=== PATIENT | female | born 1935 | race Caucasian/White ===

== ENCOUNTER → 2016-07-22 | Outpatient (CLI) | payer BC ==
[~2016-07-22] MED LIST: ATEN100T8 PO; CHOL20009 PO; FERR225T2 PO; LEVO50TA PO; LISI-725 PO; LPT/40 PO; POTA10CA28 PO; PXL20 PO
--- NOTE | 2016-07-22 14:21 | MAMMOGRAPHY REPORT ---
BILATERAL DIGITAL DIAGNOSTIC MAMMOGRAM TOMOSYNTHESIS WITH CAD AND TARGETED RIGHT ULTRASOUND: 07/22/19 CLINICAL HISTORY: 81-year-old female presents for annual bilateral mammography as well as follow-up of probably benign left breast grouped microcalcifications. She has a history of prior benign left breast ultrasound guided core biopsy. TECHNIQUE: Bilateral breast tomosynthesis and standard 2-D mammography was performed in addition to spot magnification left CC and ML views. Current study was also evaluated with a Computer Aided Det ection (CAD) system. COMPARISON: Comparison is made to exams dated: 01/02/2016 mammogram, 07/03/2015 mammogram, 5 mammogram, and 05/18/2015 mammogram - [facility]. BREAST COMPOSITION: The tissue of both breasts is heterogeneously dense, which may obscure small ma sses. FINDINGS: There is a stable ribbon shaped metallic biopsy marker in the 6:00 anterior left breast. There is a faint punctate grouping of microcalcifications in the lateral middle one third of the le ft breast, best seen on the spot magnification CC view, that appears similar on prior mammograms stacia ing back to at least 2010, therefore considered benign. There are other scattered and grouped benig n-appearing round and punctate microcalcifications at the left breast. No new suspicious mass, arch itectural distortion or new cluster of microcalcifications is seen in the left breast. Within the right posterior breast, along the posterior nipple line on the CC view, there is a newly visualized oval circumscribed 8.2 mm mass, for which additional sonographic evaluation was performed . There is a stable small grouping of punctate microcalcifications in the central right breast. A few benign coarse calcifications in the right breast. Targeted ultrasound was performed in the right breast 6:00 axis. In the 6:00 breast, 2 cm from the nipple, there is an oval parallel circumscribed anechoic benign simple cyst measuring 7.4 x 4.2 x 6. 7 mm. This correlates well with the newly visualized mammographic mass and is benign. No further w orkup is needed at this time. IMPRESSION: ACR BI-RADS CATEGORY 2: BENIGN, TARGETED ULTRASOUND ACR BI-RADS CATEGORY 2: BENIGN There is no mammographic or targeted sonographic evidence of malignancy. Small grouped punctate joaquina rocalcifications in the lateral left breast have been stable dating back to at least 2010, therefore considered benign. A newly visualized circumscribed 8mm mass in the posterior right breast correla quinton with a benign simple cyst on ultrasound. Therefore, recommend return to annual screening mammog yuridia schedule in one year. These results and recommendations were discussed with the patient at th e time of the exam. Approximately 10% of breast cancers are not detected with mammography. A negative mammographic repor t should not delay biopsy if a clinically suggestive mass is present. Ciara Augustine M.D. ay/:07/22/2016 12:21:46 Database Coordinator: Chelsey PINO(Herbie)(Stefany), [facility] letter sent: Normal 1/2 BI-RADS Code: ACR BI-RADS Category 2: Benign Ultrasound BI-RADS: ACR BI-RADS Category 2: Benign
== END | disposition home or self-care (01) ==
LOC: C.MAMM 09:59
PROVIDERS: ATTEND Family Medicine
DX: R92.0 Mammographic microcalcification found on diagnostic imaging of breast (principal); N60.01 Solitary cyst of right breast

== ENCOUNTER → 2017-07-24 | Outpatient (CLI) | payer BC ==
--- NOTE | 2017-07-24 13:58 | MAMMOGRAPHY REPORT ---
BILATERAL DIGITAL SCREENING MAMMOGRAM TOMOSYNTHESIS WITH CAD: 07/24/2017 CLINICAL HISTORY: Routine screening. Patient has no complaints. TECHNIQUE: Breast tomosynthesis in addition to standard 2D mammography was performed. Current study was also evaluated with a Computer Aided Detection (CAD) system. COMPARISON: Comparison is made to exams dated: 07/22/2016 ultrasound, 07/22/2016 mammogram, 05/28/2015 mammogram, 05/18/2015 mammogram, 05/17/2014 mammogram, and 05/12/2013 mammogram - [facility]. BREAST COMPOSITION: The tissue of both breasts is heterogeneously dense, which may obscure small mas ses. FINDINGS: No suspicious masses, calcifications, or areas of architectural distortion are noted in ei ther breast. There has been no significant interval change compared to prior exams. Bilateral benign -appearing calcifications are not significantly changed. A biopsy marker clip is again noted within the left inferior breast. Circumscribed 9 mm mass within the right 6:00 breast was shown to represen t a benign cyst on the prior 2016 ultrasound exam. IMPRESSION: ACR BI-RADS CATEGORY 2: BENIGN There is no mammographic evidence of malignancy. A 1 year screening mammogram is recommended. The pa tient will receive written notification of the results. Approximately 10% of breast cancers are not detected with mammography. A negative mammographic report should not delay biopsy if a clinically suggestive mass is present. Diya Sotomayor M.D. /:07/24/2017 12:34:30 [employer] Records Clerk: Chelsey LIN)(Stefany), [facility] letter sent: Normal 1/2 BI-RADS Code: ACR BI-RADS Category 2: Benign
== END | disposition home or self-care (01) ==
LOC: C.MAMM 09:59
PROVIDERS: ATTEND Family Medicine
DX: Z12.31 Encounter for screening mammogram for malignant neoplasm of breast (principal)

== ENCOUNTER → 2017-08-07 | Outpatient (CLI) | payer BC ==
--- NOTE | 2017-08-07 14:54 | DIAGNOSTIC IMAGING REPORT ---
ULTRASOUND-GUIDED FINE-NEEDLE ASPIRATION BIOPSY OF A RIGHT LOBE THYROID NODULE CLINICAL HISTORY: THYROID NODULE COMPARISON STUDY: 07/29/2017 FINDINGS: A timeout was performed. The risks the procedure were explained the patient informed consent was obtained. Patient prepped in sterile fashion. The skin was anesthetized 1% lidocaine. Under sonographic guidance, 5 passes into the patient's dominant right lobe nodule were performed utilizing a 25-gauge needle. There were no immediate complications. The patient however the procedure well. Final pathology is pending at this time. IMPRESSION: The patient's dominant right lobe thyroid lesion was sampled x5 under ultrasound guidance with 25-gauge needle. Final pathology is pending at this time. Electronically signed by: Juan Domínguez M.D. 08/07/2017 2:52 PM Dictated Date/Time: 08/07/2017 10:50 AM
== END | disposition home or self-care (01) ==
LOC: C.ULTR 09:35
PROVIDERS: ATTEND Family Medicine
DX: E04.1 Nontoxic single thyroid nodule (principal)

== ENCOUNTER 2020-09-06 17:26 | Inpatient (IN) ==
--- NOTE | 2020-09-06 18:14 | Emergency Department Note ---
Impression & Plan Acute CVA (cerebrovascular accident), Atrial fibrillation with rapid ventricular response, Elevated troponin ED Provider Note INFORMANT: Patient ED PROVIDER(S): Erick Shahid MD CHIEF COMPLAINT: Left arm weakness PLAN: Disposition: Admitted Condition: Good Outpatient prescription management: none Referral: None MEDICAL DECISION MAKING: Patient presented with acute left arm weakness that started yesterday. Specifically it was isolated to her hand. She was in a rapid A. fib with a mild tachycardic rate. Blood work was obtained. The patient was found to have a mild leukocytosis. LFTs were minimally elevated. The patient did have an elevated troponin and normal renal function. She was sent for CT imaging including angiography. There was no acute findings noted. Radiology did note that there was a long segment of narrowing in the vertebral but again no vessel cut off or obvious acute stroke. Her findings are concerning for stroke especially in light of her A. fib history. She was treated with IV metoprolol to control her rate. Consultation was made with Dr. Dashawn Ambrose of the [facility] service. Patient was evaluated in the ER for further management. Urinalysis was unremarkable. Triage Nursing notes reviewed and agree them. Additional history obtained from family Vital Signs: reviewed and remarkable for tachycardia Differential diagnosis: CVA, TIA, infection, dehydration, metabolic abnormality, hypo/hyperglycemia, electrolyte disturbance, anemia, hypoxia, cardiac sources, intracerebral event, toxicologic, neurologic, as well as other pathologies. Diagnostics interpreted by me: ECG: Twelve-lead ECG revealed atrial fibrillation with rapid ventricular response at 115 bpm. There is nonspecific ST abnormality. No significant ST elevation. No PVCs. Normal QRS and axis. Cardiac Monitoring: Cardiac monitoring ordered by me: The patient was placed on continuous cardiac monitoring and observed. It revealed atrial fibrillation with rapid ventricular response at 130 bpm. Imaging studies: CT imaging of the head and neck with angiography performed. No acute CVA noted. I refer you to the EMR for further details. Consultation(s): [facility] service HPI: The patient is a 85 year old female who presents to the Emergency Room with complaints of left arm weakness. This started yesterday afternoon and is persisting. The patient also notes the following associated symptoms, palpitations. The patient went to her primary clinic and they were concerned about possible CVA and rapid A. fib. The patient has history of A. fib. She is anticoagulated. The patient has found no relieving factors. Current pain is rated as 0/10. Patient does note she feels generally weak. Pt denies LOC, headache, fevers, chills, diaphoresis, visual changes, neck pain, chest pain, breathing difficulties, nausea, vomiting, abdominal pain, back pain, melena, hematochezia, urinary symptoms, numbness, lymphadenopathy, rash, or other complaints. ROS: See above HPI for pertinent positives & negatives. A total of 10 systems reviewed and were otherwise negative. PAST MEDICAL HISTORY:See Below , ABaylee cash PAST SURGICAL HISTORY:See Below, FAMILY HISTORY:See Below SOCIAL HISTORY:See Below, non-smoker HOME MEDICATIONS:See Below ALLERGIES:See Below VITALS:See Below PHYSICAL EXAMINATION: GENERAL: Awake, alert, well-appearing, in no distress HENT: Normocephalic, atraumatic. Oropharynx unremarkable. EYES: Normal conjunctiva. Sclera non-icteric. NECK: Inspection normal. Non-tender. Supple. No nuchal rigidity. FROM. No masses. RESPIRATORY: Clear to auscultation. No wheezes. No rales. Normal respiratory effort. CARDIAC: Normal rate. Normal rhythm. No murmurs. No rubs. The left hand is cool to the touch but there is a good distal pulse. Pulses equal. No JVD. GI: Soft, non-distended. No tenderness to palpation. No rebound or guarding. No masses. RECTAL: Deferred. MUSCULOSKELETAL: Atraumatic. Chest examination reveals no tenderness. The back is symmetrical on inspection without obvious abnormality. There is no CVA tenderness to palpation. No joint edema. LOWER EXTREMITIES: Calves are equal size bilaterally and non-tender. No edema. No discoloration. NEURO: Normal sensorium. No sensory deficits noted. Left hand weakness present. No drift. Cranial nerves II to XII intact. Speech normal SKIN: No rash or jaundice noted. ED COURSE: Critical Care: I have personally spent greater than 35 minutes of critical care time in the direct management of this patient. This includes bedside care, interpretation of diagnostic studies, and testing, discussion with consultants, patient, and family members, and other required patient management activities. These minutes are in excess of all separately billable procedures. Erick Shahid MD Past Med/Surg History Social History Smoking Status: Never smoker Preferred Language: Danish Feels Safe at Home: Yes Allergies Allergies Allergy/AdvReac Type Severity Reaction Status Date / Time No Known Allergies Allergy Verified 09/06/20 19:09 Home Meds Home Medications Medication Instructions Recorded Confirmed atorvastatin 40 mg PO QPM 09/06/20 09/06/20 chlorthalidone 12.5 mg PO DAILY 09/06/20 09/06/20 cholecalciferol (vitamin D3) 50 mcg PO QAM 09/06/20 09/06/20 [Vitamin D3] iron,carbonyl-vitamin C [Vitron-C] 1 tab PO QAM 09/06/20 09/06/20 lisinopril 40 mg PO QPM 09/06/20 09/06/20 metoprolol succinate 150 mg PO QPM 09/06/20 09/06/20 multivitamin [One A Day Vitamin] 1 tab PO QAM 09/06/20 09/06/20 rivaroxaban [Xarelto] 20 mg PO QPM 09/06/20 09/06/20 Results & Data (ED) Vital Signs Vital Signs - 24 hr 09/06/20 17:34 09/06/20 18:00 09/06/20 18:13 Temperature 36.6 C Temperature Source Temporal Artery Scan Pulse Rate 127 H 115 H 119 H Pulse Rate [Left Apical] Pulse Rate from SpO2 Sensor Pulse Rhythm [Left Apical] Pulse Strength [Left Apical] Respiratory Rate 17 27 H 25 H Respiratory Effort / Characteristics Non-Labored Spontaneous Respiratory Depth Normal Respiratory Pattern Blood Pressure 141/81 H 150/95 H Blood Pressure [Right Arm] Blood Pressure Mean 101 113 Blood Pressure Mean [Right Arm] Blood Pressure Position Sitting Blood Pressure Position [Right Arm] Pulse Oximetry 98 Oxygen Delivery Method Room Air Sepsis Recent Fever Within 48 Hours No Sepsis New/Unexplained Change in Mental Status Yes Sepsis Action Taken by Nursing No Action Required 09/06/20 18:30 09/06/20 18:38 09/06/20 18:40 Temperature Temperature Source Pulse Rate 119 H 125 H Pulse Rate [Left Apical] 121 H Pulse Rate from SpO2 Sensor Pulse Rhythm [Left Apical] Regular Pulse Strength [Left Apical] Normal Respiratory Rate 26 H 27 H 18 Respiratory Effort / Characteristics Non-Labored Spontaneous Respiratory Depth Normal Respiratory Pattern Regular Blood Pressure 148/91 H Blood Pressure [Right Arm] 148/91 H Blood Pressure Mean 110 Blood Pressure Mean [Right Arm] 110 Blood Pressure Position Blood Pressure Position [Right Arm] Lying Pulse Oximetry 98 Oxygen Delivery Method Room Air Sepsis Recent Fever Within 48 Hours Sepsis New/Unexplained Change in Mental Status Sepsis Action Taken by Nursing 09/06/20 20:00 09/06/20 20:23 09/06/20 20:29 Temperature Temperature Source Pulse Rate 125 H 120 H 123 H Pulse Rate [Left Apical] Pulse Rate from SpO2 Sensor 121 H 116 H 129 H Pulse Rhythm [Left Apical] Pulse Strength [Left Apical] Respiratory Rate 17 16 20 Respiratory Effort / Characteristics Respiratory Depth Respiratory Pattern Blood Pressure 141/97 H 137/91 136/81 Blood Pressure [Right Arm] Blood Pressure Mean 111 106 99 Blood Pressure Mean [Right Arm] Blood Pressure Position Blood Pressure Position [Right Arm] Pulse Oximetry 97 99 97 Oxygen Delivery Method Room Air Room Air Room Air Sepsis Recent Fever Within 48 Hours Sepsis New/Unexplained Change in Mental Status Sepsis Action Taken by Nursing 09/06/20 20:30 Temperature Temperature Source Pulse Rate 112 H Pulse Rate [Left Apical] Pulse Rate from SpO2 Sensor 115 H Pulse Rhythm [Left Apical] Pulse Strength [Left Apical] Respiratory Rate 17 Respiratory Effort / Characteristics Respiratory Depth Respiratory Pattern Blood Pressure 143/85 H Blood Pressure [Right Arm] Blood Pressure Mean 104 Blood Pressure Mean [Right Arm] Blood Pressure Position Blood Pressure Position [Right Arm] Pulse Oximetry 98 Oxygen Delivery Method Room Air Sepsis Recent Fever Within 48 Hours Sepsis New/Unexplained Change in Mental Status Sepsis Action Taken by Nursing Laboratory Data Result diagrams: 09/06/20 18:10 09/06/20 18:10 Lab Results 09/06/20 09/06/20 09/06/20 Range/Units 18:08 18:10 18:10 WBC 14.58 H (4.8-10.8) K/uL RBC 3.51 L (4.2-5.4) M/uL Hgb 11.0 L (12.0-16.0) g/dL Hct 32.2 L (37-47) % MCV 91.7 (80-100) fL MCH 31.3 (25-34) pg MCHC 34.2 (32-36) g/dL RDW Std Deviation 49.5 H (36.4-46.3) fL RDW Coeff of Ananth 14.7 H (11.5-14.5) % Plt Count 269 (130-400) K/uL MPV 9.5 (7.4-10.4) fL Immature Gran % (Auto) 0.2 % Neut % (Auto) 84.1 % Lymph % (Auto) 8.6 % Chaves % (Auto) 6.2 % Eos % (Auto) 0.8 % Baso % (Auto) 0.1 % Neut # (Auto) 12.25 H (1.4-6.5) K/uL Lymph # (Auto) 1.26 (1.2-3.4) K/uL Chaves # (Auto) 0.91 H (0.11-0.59) K/uL Eos # (Auto) 0.11 (0-0.5) K/uL Baso # (Auto) 0.02 (0-0.2) K/uL Immature Gran # (Auto) 0.03 H (0.00-0.02) K/uL PT 13.1 H (9.0-12.0) Seconds INR 1.3 H (0.9-1.1) APTT 29.0 (21.0-31.0) Seconds PTT Ratio 1.1 Sodium (136-145) mmol/L Potassium (3.5-5.1) mmol/L Chloride (98-107) mmol/L Carbon Dioxide (21-32) mmol/L Anion Gap (3-11) BUN (7-18) mg/dl Creatinine (0.6-1.2) mg/dl Est Cr Clr Drug Dosing ml/min Est GFR ( Amer) Est GFR (Non-Af Amer) BUN/Creatinine Ratio (10-20) Glucose (70-99) mg/dl POC Glucose 122 H (70-99) mg/dl Calcium (8.5-10.1) mg/dl Magnesium (1.8-2.4) mg/dl Total Bilirubin (0.2-1) mg/dl AST (15-37) U/L ALT (12-78) U/L Alkaline Phosphatase (45-117) U/L Troponin I (0-0.045) ng/ml Total Protein (6.4-8.2) gm/dl Albumin (3.4-5.0) gm/dl Globulin (2.5-4.0) gm/dl Albumin/Globulin Ratio (0.9-2) Urine Color Urine Appearance (Clear) Urine pH (4.5-7.5) Ur Specific Helen (1.000-1.030) Urine Protein (Negative) Urine Glucose (UA) (Negative) Urine Ketones (Negative) Urine Blood (Negative) Urine Nitrite (Negative) Urine Bilirubin (Negative) Urine Urobilinogen (Negative) Ur Leukocyte Esterase (Negative) Urine WBC (Auto) (0-5) /hpf Urine RBC (Auto) (0-4) /hpf U Hyaline Cast (Auto) (0-5) /lpf U Epithel Cells (Auto) (0-5) /lpf Urine Bacteria (Auto) (Negative) 09/06/20 09/06/20 Range/Units 18:10 20:10 WBC (4.8-10.8) K/uL RBC (4.2-5.4) M/uL Hgb (12.0-16.0) g/dL Hct (37-47) % MCV (80-100) fL MCH (25-34) pg MCHC (32-36) g/dL RDW Std Deviation (36.4-46.3) fL RDW Coeff of Ananth (11.5-14.5) % Plt Count (130-400) K/uL MPV (7.4-10.4) fL Immature Gran % (Auto) % Neut % (Auto) % Lymph % (Auto) % Chaves % (Auto) % Eos % (Auto) % Baso % (Auto) % Neut # (Auto) (1.4-6.5) K/uL Lymph # (Auto) (1.2-3.4) K/uL Chaves # (Auto) (0.11-0.59) K/uL Eos # (Auto) (0-0.5) K/uL Baso # (Auto) (0-0.2) K/uL Immature Gran # (Auto) (0.00-0.02) K/uL PT (9.0-12.0) Seconds INR (0.9-1.1) APTT (21.0-31.0) Seconds PTT Ratio Sodium 132 L (136-145) mmol/L Potassium 3.7 (3.5-5.1) mmol/L Chloride 98 (98-107) mmol/L Carbon Dioxide 26 (21-32) mmol/L Anion Gap 8.0 (3-11) BUN 16 (7-18) mg/dl Creatinine 0.88 (0.6-1.2) mg/dl Est Cr Clr Drug Dosing 42.6 ml/min Est GFR ( Amer) 69.9 Est GFR (Non-Af Amer) 60.3 BUN/Creatinine Ratio 18.1 (10-20) Glucose 112 H (70-99) mg/dl POC Glucose (70-99) mg/dl Calcium 9.8 (8.5-10.1) mg/dl Magnesium 1.9 (1.8-2.4) mg/dl Total Bilirubin 1.5 H (0.2-1) mg/dl AST 53 H (15-37) U/L ALT 49 (12-78) U/L Alkaline Phosphatase 166 H (45-117) U/L Troponin I 0.522 H* (0-0.045) ng/ml Total Protein 7.7 (6.4-8.2) gm/dl Albumin 3.1 L (3.4-5.0) gm/dl Globulin 4.6 H (2.5-4.0) gm/dl Albumin/Globulin Ratio 0.7 L (0.9-2) Urine Color Dark Yellow Urine Appearance Clear (Clear) Urine pH 5.5 (4.5-7.5) Ur Specific Helen 1.041 H (1.000-1.030) Urine Protein 1+ H (Negative) Urine Glucose (UA) Negative (Negative) Urine Ketones Trace H (Negative) Urine Blood Negative (Negative) Urine Nitrite Negative (Negative) Urine Bilirubin 1+ H (Negative) Urine Urobilinogen Negative (Negative) Ur Leukocyte Esterase Negative (Negative) Urine WBC (Auto) 1-5 (0-5) /hpf Urine RBC (Auto) 0-4 (0-4) /hpf U Hyaline Cast (Auto) 5-10 H (0-5) /lpf U Epithel Cells (Auto) 20-30 H (0-5) /lpf Urine Bacteria (Auto) Negative (Negative) Administered Medications Discontinued Medications Ioversol (Optiray 320 125ml) 119 ml IV ONCE ONE Stop: 09/06/20 19:33 Last Admin: 09/06/20 19:32 Dose: 119 ml Documented by: [id number] Metoprolol Tartrate (Metoprolol Tartrate 1 Mg/Ml Vial) 2.5 mg IV NOW STA Stop: 09/06/20 20:01 Last Admin: 09/06/20 20:23 Dose: 2.5 mg Documented by: [id number] Discharge Plan Visit Data Chief Complaint: Arrhythmia/Palpitations Stated Complaint: a-fib ED Provider: Erick Shahid Discharge Problem: Acute CVA (cerebrovascular accident), Atrial fibrillation with rapid ventricular response, Elevated troponin Forms Stand Alone Forms: My [facility] Prescriptions Prescriptions: No Action atorvastatin 40 mg tablet 40 mg PO QPM RF: 0 metoprolol succinate 100 mg tablet extended release 24 hr 150 mg PO QPM RF: 0 chlorthalidone 25 mg tablet 12.5 mg PO DAILY RF: 0 lisinopril 40 mg tablet 40 mg PO QPM RF: 0 Xarelto 20 mg tablet 20 mg PO QPM RF: 0 multivitamin [One A Day Vitamin] Tablet 1 tab PO QAM RF: 0 cholecalciferol (vitamin D3) [Vitamin D3] 50 mcg (2,000 unit) Tablet 50 mcg PO QAM RF: 0 Vitron-C 65 mg iron- 125 mg Tablet,Delayed Release (Dr/Ec) 1 tab PO QAM RF: 0
[2020-09-06 18:30] LABS: Basophils # (auto) 0.02 K/uL (0-0.2); Basophils % (auto) 0.1 %; Eosinophils # (auto) 0.11 K/uL (0-0.5); Eosinophils % (auto) 0.8 %; Hematocrit (blood only) 32.2 % (37-47); Immature Granulocytes # (auto) 0.03 K/uL (0.00-0.02); Immature Granulocytes % (auto) 0.2 %; Lymphocytes # (auto) 1.26 K/uL (1.2-3.4); Lymphocytes % (auto) 8.6 %; Mean Corpuscular Hemoglobin 31.3 pg (25-34); Mean Corpuscular Hgb Conc 34.2 g/dL (32-36); Mean Corpuscular Volume 91.7 fL (80-100); Mean Platelet Volume 9.5 fL (7.4-10.4); Monocytes # (auto) 0.91 K/uL (0.11-0.59); Monocytes % (auto) 6.2 %; Neutrophils # (auto) 12.25 K/uL (1.4-6.5); Neutrophils % (auto) 84.1 %; Platelet Count 269 K/uL (130-400); RDW Coefficient of Variation 14.7 % (11.5-14.5); RDW Standard Deviation 49.5 fL (36.4-46.3); Red Blood Count 3.51 M/uL (4.2-5.4); White Blood Count 14.58 K/uL (4.8-10.8)
[2020-09-06 18:40] LABS: INR 1.3 (0.9-1.1); Partial Thromboplastin Ratio 1.1; Prothrombin Time 13.1 Seconds (9.0-12.0)
[2020-09-06 18:48] LABS: Albumin Level 3.1 gm/dl (3.4-5.0); BUN Creatinine Ratio 18.1 (10-20); Calcium 9.8 mg/dl (8.5-10.1); Creatinine Clr Calc Pharmacy 42.6 ml/min; Est GFR (African American) 69.9; Est GFR (Non-African American) 60.3; Magnesium 1.9 mg/dl (1.8-2.4); Potassium 3.7 mmol/L (3.5-5.1)
[2020-09-06 19:02] LABS: Albumin Globulin Ratio 0.7 (0.9-2); Bilirubin,Total 1.5 mg/dl (0.2-1); Globulin 4.6 gm/dl (2.5-4.0); Total Protein 7.7 gm/dl (6.4-8.2); Troponin I 0.522 ng/ml (0-0.045)
[2020-09-06] MEDS ORDERED: OPTIRAY 320 125ml IV ONE (19:32)
--- NOTE | 2020-09-06 19:48 | CT Scan Report ---
CT head/brain wo con CLINICAL HISTORY: Stroke Like Symptoms COMPARISON STUDY: No previous studies for comparison. TECHNIQUE: Axial CT of the brain is performed from the vertex to the skull base. IV contrast was not administered for this examination. A dose lowering technique was utilized adhering to the principles of ALARA. CT DOSE: FINDINGS: No intra or extra-axial mass lesions are visualized. There is no CT evidence of acute cortical infarc tion. There is no evidence of midline shift. There is no acute hemorrhage. No calvarial fractures ar e visualized. There are patchy white matter hypodensities likely on a small vessel basis. There is no evidence of pathologic ventricular dilatation. There is no evidence of acute sinusitis IMPRESSION: No acute intracranial findings ACT 112: Negative or not required by law. Electronically signed by: Juan Domínguez M.D. 09/06/2020 7:47 PM
--- NOTE | 2020-09-06 19:53 | CT Scan Report ---
CT angio neck with con CLINICAL HISTORY: Stroke Like Symptoms COMPARISON STUDY: No previous studies for comparison. TECHNIQUE: CT angiography was performed from the aortic arch to the skull base. MIP imaging was perfo rmed. The patient was scanned in a dynamic helical fashion during intravenous administration of 119 c c of Optiray 320. A dose lowering technique was utilized adhering to the principles of ALARA. CT DOSE: Technique: CT angiogram of the carotid and vertebral arteries was obtained using intravenous contrast and 3-D reconstruction. NASCET criteria was utilized. Findings: There is a 31 mm right lobe thyroid nodule. This remains unchanged from prior ultrasound study dated 02/15/2020 There are atheromatous changes the right carotid bulb without evidence of hemodynamically significant stenosis. The left carotid revealed no evidence of hemodynamic significant stenosis. There is no evidence of an eurysm. There is no evidence of dissection. There is a long segment narrowing of the distal right vertebral artery. There is no evidence of verte bral dissection. There is a dominant left vertebral artery. IMPRESSION: 1. No evidence of hemodynamically significant carotid stenosis 2. Moderate long segment narrowing of the distal right vertebral artery. 3. Stable 31 mm right lobe thyroid nodule ACT 112: Negative or not required by law. Electronically signed by: Juan Domínguez M.D. 09/06/2020 7:52 PM
--- NOTE | 2020-09-06 19:58 | CT Scan Report ---
CT angio head w con CLINICAL HISTORY: Stroke Like Symptoms TECHNIQUE: CT angiography of the head was performed in a dynamic helical fashion during intravenous a dministration of 119 cc of Optiray 320. MIP imaging was performed. A dose lowering technique was util ized adhering to the principles of ALARA. CT DOSE: 953.93 mGy.cm COMPARISON STUDY: No previous studies for comparison. FINDINGS: There are no lesion suspicious for aneurysm. There are no major intracranial branch occlusi ons. The dural venous sinuses appear patent. There is long segment narrowing of the distal right vert ebral artery. 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 No evidence of aneurysm 2. No evidence of major intracranial branch occlusion 3. Long segment narrowing of the distal right vertebral artery 4. Hard palate hyperostosis ACT 112: Negative or not required by law. Electronically signed by: Juan Domínguez M.D. 09/06/2020 7:56 PM
[2020-09-06] MEDS ORDERED: METOPROLOL TARTRATE 1 MG/ML VIAL IV STA (20:00)
[2020-09-06 20:26] LABS: Appearance Urine Clear (Clear); Bacteria Urine Automated Negative (Negative); Blood Urine Negative (Negative); Color Urine Dark Yellow; Epithelial Cell Urine Auto 20-30 /lpf (0-5); Glucose Urine UA Negative (Negative); Ketones Urine Trace (Negative); Leukocyte Esterase Urine Negative (Negative); Nitrite Urine Negative (Negative); Protein Urine 1+ (Negative); RBC Urine Automated 0-4 /hpf (0-4); Specific Gravity Urine 1.041 (1.000-1.030); Urobilinogen Urine Negative (Negative); pH Urine 5.5 (4.5-7.5)
[2020-09-06 20:48] LABS: Bilirubin Urine 1+ (Negative)
--- NOTE | 2020-09-06 22:02 | History & Physical Report ---
Date of Service September 06, 2020 Assessment & Plan (1) Acute CVA (cerebrovascular accident): Rosie De Guzman is an 85 y/o female with a PMHx of atrial fibrillation, MVP, anxiety, HTN, hyperlipidemia, iron deficiency anemia admitted 09/06/20 for stroke workup. Acute CVA - Head CT 09/06 with no acute intracranial findings. - Head CTA 09/06 with no evidence of aneurysm, no evidence of major intracranial branch occlusion, long segment narrowing of the distal right vertebral artery, and hard palate hyperostosis - Neck CTA 09/06 with no evidence of hemodynamically significant carotid stenosis, moderate long segment narrowing of the distal right vertebral artery, and stable 31 mm right lobe thyroid nodule - Given presentation with abnormal balance and focal weakness to left hand, in conjunction with hx of atrial fibrillation, will continue with stroke evaluation - Brain MRI ordered and pending - TTE ordered and pending - Ordered PT/OT/ST - Consult neurology - Initiate stroke protocol including scheduled neuro checks Atrial Fibrillation with RVR - Patient anticoagulated at home with Xarelto 20mg po daily; continue home Xarelto - Rate control with home metoprolol succinate 150mg po daily; continue home metoprolol - INR 1.3 - TTE pending as noted above Elevated Troponin - Troponin elevated at 0.522 on admission - Suspect secondary to stress reaction, however, will trend troponin Leukocytosis - WBC elevated at 14.58 - Suspect secondary to stress response, likely acute CVA, and recent COVID vaccine - UA w/ no sign of infection - CXR ordered and pending - COVID negative 09/06/20 - Trend CBC Elevated LFTs - AST slightly elevated at 53, ALT 49, and alk phos slightly elevated at 166 - CK ordered and pending - INR 1.3 - Trend HFP and INR in AM Dysphagia - Complaint of dysphagia for 2+ months; no dysphagia w/ liquids - Associated unintentional weight loss of > 10 lbs. in 1 month - Recommend that this c/o dysphagia be addressed once stroke workup is further assessed - Consider upper GI study vs. EGD - Consult GI History of Iron Deficiency Anemia - Current anemia with Hgb 11.0; no recent Hgb in our system or from PCP records for comparison - Per PCP records, in 12/2015, Hgb 14.1, ferritin 15.6, and iron 130 (improved from 07/2015 when Hgb 10.1, ferritin 7.9, and iron 67) - CBC qAM - Transfuse if Hgb < 7 - Continue home iron Hyperlipidemia - Continue home atorvastatin 40mg po daily - Will get fasting lipid profile tomorrow AM as part of stroke workup Hypertension - Allow for permissive HTN - Continue home chlorthalidone 12.5mg po daily and lisinopril 40mg po qpm FENGI: NPO DVT Ppx: Anticoagulated on home Xarelto Dispo: Tele Code status: DNR/DNI (2) Atrial fibrillation with rapid ventricular response: (3) Elevated troponin: (4) Dysphagia: (5) Hyperlipidemia: (6) Unintentional weight loss: (7) Anticoagulated by anticoagulation treatment: (8) Anxiety: (9) Hypertension: (10) Iron deficiency anemia: (11) Leukocytosis: History of Present Illness Chief Complaint: Left hand numbness and weakness Primary Care Provider: Ant Nieto MD Rosie De Guzman is an 85 y/o female with a PMHx of atrial fibrillation, MVP, anxiety, HTN, hyperlipidemia, iron deficiency anemia who presented to the ED today, 09/06/20, with complaint of focal weakness to the left hand. For the past 1 month, patient reports progressively worsening fatigue and generalized weakness; she attributed these sxs to the Pfizer COVID vaccine. On Thursday, 2 days ago, patient received the 2nd dose of the COVID-19 vaccine, in her left arm (which is non-dominant arm). Hours after receiving this 2nd vaccine, patient went [facility] where she was noted to have difficulty w/ ambulation and feeling of being "off balance." Patient went home and slept. She reports that other than being fatigued, her morning yesterday was routine. Yesterday afternoon around 2:30pm, she noted to have acute left hand numbness and weakness. Patient called her PCP's office today and was seen this afternoon; due to her sxs and hx, it was recommended that she come to the ED for further evaluation. In addition to the sxs noted above, patient reports a 2+ month hx of dysphagia. Reports difficulty swallowing only solid foods, and mostly meats; no difficulty with liquids. She has also had a significantly decreased appetite over the past 3-4 weeks and an unintentional 12 lb. weight loss. Patient notes that she has had prior GI evaluation and EGD "several years ago" with Dr. Little but states that there were no abnormal findings on EGD. Allergies Allergy/AdvReac Type Severity Reaction Status Date / Time No Known Allergies Allergy Verified 09/06/20 19:09 Home Medications Medication Instructions Recorded Confirmed Type atorvastatin 40 mg PO QPM 09/06/20 09/06/20 History chlorthalidone 12.5 mg PO DAILY 09/06/20 09/06/20 History cholecalciferol (vitamin D3) 50 mcg PO QAM 09/06/20 09/06/20 History [Vitamin D3] iron,carbonyl-vitamin C [Vitron-C] 1 tab PO QAM 09/06/20 09/06/20 History lisinopril 40 mg PO QPM 09/06/20 09/06/20 History metoprolol succinate 150 mg PO QPM 09/06/20 09/06/20 History multivitamin [One A Day Vitamin] 1 tab PO QAM 09/06/20 09/06/20 History rivaroxaban [Xarelto] 20 mg PO QPM 09/06/20 09/06/20 History Past Med/Surg History Medical History (Updated 09/07/20 @ 16:12 by Lauren Yeung MD) Anticoagulated by anticoagulation treatment Anxiety Chronic gastritis Colloid thyroid nodule Diverticulosis Dysphagia History of DVT (deep vein thrombosis) History of pulmonary embolism Hyperlipidemia Hypertension Iron deficiency anemia Mitral valve prolapse Unintentional weight loss Surgical History H/O breast biopsy History of esophagogastroduodenoscopy (EGD) Family History Sister Dementia Diabetes Heart disease Macular degeneration Osteoporosis Son Asthma Mother Macular degeneration Social History Smoking Status: Never smoker Hx Alcohol Use: Yes Alcohol type: wine Alcohol type Comment: socially w/ family Hx Substance Use: No Preferred Language: Malay Communication Ability: Effective Beliefs That Will Affect Care: None marital status: Current Living Situation: Spouse Feels Safe at Home: Yes Safety Concerns: Feels Safe At This Time Assistive Devices: Glasses Review of Systems Constitutional: + fatigue, + weakness and + anorexia; no fever and no chills Eyes: no worsening vision and no problem reported Ear, Nose, Mouth, Throat: no ear pain, no hearing loss, no nasal congestion and no sore throat Respiratory: no cough and no dyspnea Cardiovascular: + palpitations; no chest pain Gastrointestinal: no abdominal pain, no nausea, no vomiting, no change in stools, no constipation and no diarrhea/loose stools Genitourinary: no dysuria and no hematuria Neurologic: + gait abnormality, + unsteadiness, + localized weakness, + generalized weakness and + numbness; no dizziness and no headache(s) Physical Exam Physical Exam: GENERAL: No acute distress. Appears stated age. Well developed and well nourished. Vital signs reviewed. EYES: PERRLA. EOMI. Anicteric sclerae. HENT: Moist mucous membranes. No pharyngeal erythema or exudates. RESPIRATORY: Clear to auscultation bilaterally. No wheezing, rales, or rhonchi. CARDIOVASCULAR: Irregularly irregular rhythm. Tachycardia with rates in 110s. ABDOMEN: Soft, non-tender and non-distended. No palpable masses. Normal bowel sounds. EXTREMITIES: No edema. Non-tender to palpation. NEUROLOGIC: A/O x3. CN II-XII grossly intact. Cerebellar testing with [id number] in tact but noted to be slowed with left hand. No pronator drift. Sensation in tact throughout BUE and BLE. 5/5 strength in BLE. 5/5 strength in RUE. Decreased turkey pinner strength to L hand; patient with difficulty moving fingers into different positions. Normal speech. No dysarthria. Significant difficulty with rapid alternating movements of left hand. PSYCHIATRIC: Cooperative. Appropriate mood and affect. Results & Data Results & Data ([facility]) Vital Signs (Past 12 Hours) Vital Signs Temp Pulse Pulse Resp BP BP Pulse Ox 09/06/20 21:00 120 H 20 111/93 98 09/06/20 20:30 112 H 17 143/85 H 98 09/06/20 20:29 123 H 20 136/81 97 09/06/20 20:23 120 H 16 137/91 99 09/06/20 20:00 125 H 17 141/97 H 97 09/06/20 18:40 121 H 18 148/91 H 98 09/06/20 18:38 125 H 27 H 148/91 H 09/06/20 18:30 119 H 26 H 03/04/21 18:13 119 H 25 H 150/95 H 09/06/20 18:00 115 H 27 H 09/06/20 17:34 36.6 C 127 H 17 141/81 H 98 Laboratory Results 09/06/20 09/06/20 09/06/20 Range/Units 21:06 21:06 20:10 WBC (4.8-10.8) K/uL RBC (4.2-5.4) M/uL Hgb (12.0-16.0) g/dL Hct (37-47) % MCV (80-100) fL MCH (25-34) pg MCHC (32-36) g/dL RDW Std Deviation (36.4-46.3) fL RDW Coeff of Ananth (11.5-14.5) % Plt Count (130-400) K/uL MPV (7.4-10.4) fL Immature Gran % (Auto) % Neut % (Auto) % Lymph % (Auto) % O'Brien % (Auto) % Eos % (Auto) % Baso % (Auto) % Neut # (Auto) (1.4-6.5) K/uL Lymph # (Auto) (1.2-3.4) K/uL O'Brien # (Auto) (0.11-0.59) K/uL Eos # (Auto) (0-0.5) K/uL Baso # (Auto) (0-0.2) K/uL Immature Gran # (Auto) (0.00-0.02) K/uL PT (9.0-12.0) Seconds INR (0.9-1.1) APTT (21.0-31.0) Seconds PTT Ratio Sodium (136-145) mmol/L Potassium (3.5-5.1) mmol/L Chloride (98-107) mmol/L Carbon Dioxide (21-32) mmol/L Anion Gap (3-11) BUN (7-18) mg/dl Creatinine (0.6-1.2) mg/dl Est Cr Clr Drug Dosing ml/min Est GFR ( Amer) Est GFR (Non-Af Amer) BUN/Creatinine Ratio (10-20) Glucose (70-99) mg/dl POC Glucose (70-99) mg/dl Calcium (8.5-10.1) mg/dl Magnesium (1.8-2.4) mg/dl Total Bilirubin (0.2-1) mg/dl AST (15-37) U/L ALT (12-78) U/L Alkaline Phosphatase (45-117) U/L Troponin I (0-0.045) ng/ml Total Protein (6.4-8.2) gm/dl Albumin (3.4-5.0) gm/dl Globulin (2.5-4.0) gm/dl Albumin/Globulin Ratio (0.9-2) Urine Color Dark Yellow Urine Appearance Clear (Clear) Urine pH 5.5 (4.5-7.5) Ur Specific Morven 1.041 H (1.000-1.030) Urine Protein 1+ H (Negative) Urine Glucose (UA) Negative (Negative) Urine Ketones Trace H (Negative) Urine Blood Negative (Negative) Urine Nitrite Negative (Negative) Urine Bilirubin 1+ H (Negative) Urine Urobilinogen Negative (Negative) Ur Leukocyte Esterase Negative (Negative) Urine WBC (Auto) 1-5 (0-5) /hpf Urine RBC (Auto) 0-4 (0-4) /hpf U Hyaline Cast (Auto) 5-10 H (0-5) /lpf U Epithel Cells (Auto) 20-30 H (0-5) /lpf Urine Bacteria (Auto) Negative (Negative) COVID-19 Eval Order Covid19 IDNow atMMAC SARS-CoV-2, RNA, NAAT NEGATIVE (NEGATIVE) Blood Type Antibody Screen 09/06/20 09/06/20 09/06/20 Range/Units 18:29 18:10 18:10 WBC (4.8-10.8) K/uL RBC (4.2-5.4) M/uL Hgb (12.0-16.0) g/dL Hct (37-47) % MCV (80-100) fL MCH (25-34) pg MCHC (32-36) g/dL RDW Std Deviation (36.4-46.3) fL RDW Coeff of Ananth (11.5-14.5) % Plt Count (130-400) K/uL MPV (7.4-10.4) fL Immature Gran % (Auto) % Neut % (Auto) % Lymph % (Auto) % O'Brien % (Auto) % Eos % (Auto) % Baso % (Auto) % Neut # (Auto) (1.4-6.5) K/uL Lymph # (Auto) (1.2-3.4) K/uL O'Brien # (Auto) (0.11-0.59) K/uL Eos # (Auto) (0-0.5) K/uL Baso # (Auto) (0-0.2) K/uL Immature Gran # (Auto) (0.00-0.02) K/uL PT 13.1 H (9.0-12.0) Seconds INR 1.3 H (0.9-1.1) APTT 29.0 (21.0-31.0) Seconds PTT Ratio 1.1 Sodium 132 L (136-145) mmol/L Potassium 3.7 (3.5-5.1) mmol/L Chloride 98 (98-107) mmol/L Carbon Dioxide 26 (21-32) mmol/L Anion Gap 8.0 (3-11) BUN 16 (7-18) mg/dl Creatinine 0.88 (0.6-1.2) mg/dl Est Cr Clr Drug Dosing 42.6 ml/min Est GFR ( Amer) 69.9 Est GFR (Non-Af Amer) 60.3 BUN/Creatinine Ratio 18.1 (10-20) Glucose 112 H (70-99) mg/dl POC Glucose (70-99) mg/dl Calcium 9.8 (8.5-10.1) mg/dl Magnesium 1.9 (1.8-2.4) mg/dl Total Bilirubin 1.5 H (0.2-1) mg/dl AST 53 H (15-37) U/L ALT 49 (12-78) U/L Alkaline Phosphatase 166 H (45-117) U/L Troponin I 0.522 H* (0-0.045) ng/ml Total Protein 7.7 (6.4-8.2) gm/dl Albumin 3.1 L (3.4-5.0) gm/dl Globulin 4.6 H (2.5-4.0) gm/dl Albumin/Globulin Ratio 0.7 L (0.9-2) Urine Color Urine Appearance (Clear) Urine pH (4.5-7.5) Ur Specific Morven (1.000-1.030) Urine Protein (Negative) Urine Glucose (UA) (Negative) Urine Ketones (Negative) Urine Blood (Negative) Urine Nitrite (Negative) Urine Bilirubin (Negative) Urine Urobilinogen (Negative) Ur Leukocyte Esterase (Negative) Urine WBC (Auto) (0-5) /hpf Urine RBC (Auto) (0-4) /hpf U Hyaline Cast (Auto) (0-5) /lpf U Epithel Cells (Auto) (0-5) /lpf Urine Bacteria (Auto) (Negative) COVID-19 Eval Order SARS-CoV-2, RNA, NAAT (NEGATIVE) Blood Type A Positive Antibody Screen NEGATIVE 09/06/20 09/06/20 Range/Units 18:10 18:08 WBC 14.58 H (4.8-10.8) K/uL RBC 3.51 L (4.2-5.4) M/uL Hgb 11.0 L (12.0-16.0) g/dL Hct 32.2 L (37-47) % MCV 91.7 (80-100) fL MCH 31.3 (25-34) pg MCHC 34.2 (32-36) g/dL RDW Std Deviation 49.5 H (36.4-46.3) fL RDW Coeff of Ananth 14.7 H (11.5-14.5) % Plt Count 269 (130-400) K/uL MPV 9.5 (7.4-10.4) fL Immature Gran % (Auto) 0.2 % Neut % (Auto) 84.1 % Lymph % (Auto) 8.6 % O'Brien % (Auto) 6.2 % Eos % (Auto) 0.8 % Baso % (Auto) 0.1 % Neut # (Auto) 12.25 H (1.4-6.5) K/uL Lymph # (Auto) 1.26 (1.2-3.4) K/uL O'Brien # (Auto) 0.91 H (0.11-0.59) K/uL Eos # (Auto) 0.11 (0-0.5) K/uL Baso # (Auto) 0.02 (0-0.2) K/uL Immature Gran # (Auto) 0.03 H (0.00-0.02) K/uL PT (9.0-12.0) Seconds INR (0.9-1.1) APTT (21.0-31.0) Seconds PTT Ratio Sodium (136-145) mmol/L Potassium (3.5-5.1) mmol/L Chloride (98-107) mmol/L Carbon Dioxide (21-32) mmol/L Anion Gap (3-11) BUN (7-18) mg/dl Creatinine (0.6-1.2) mg/dl Est Cr Clr Drug Dosing ml/min Est GFR ( Amer) Est GFR (Non-Af Amer) BUN/Creatinine Ratio (10-20) Glucose (70-99) mg/dl POC Glucose 122 H (70-99) mg/dl Calcium (8.5-10.1) mg/dl Magnesium (1.8-2.4) mg/dl Total Bilirubin (0.2-1) mg/dl AST (15-37) U/L ALT (12-78) U/L Alkaline Phosphatase (45-117) U/L Troponin I (0-0.045) ng/ml Total Protein (6.4-8.2) gm/dl Albumin (3.4-5.0) gm/dl Globulin (2.5-4.0) gm/dl Albumin/Globulin Ratio (0.9-2) Urine Color Urine Appearance (Clear) Urine pH (4.5-7.5) Ur Specific Morven (1.000-1.030) Urine Protein (Negative) Urine Glucose (UA) (Negative) Urine Ketones (Negative) Urine Blood (Negative) Urine Nitrite (Negative) Urine Bilirubin (Negative) Urine Urobilinogen (Negative) Ur Leukocyte Esterase (Negative) Urine WBC (Auto) (0-5) /hpf Urine RBC (Auto) (0-4) /hpf U Hyaline Cast (Auto) (0-5) /lpf U Epithel Cells (Auto) (0-5) /lpf Urine Bacteria (Auto) (Negative) COVID-19 Eval Order SARS-CoV-2, RNA, NAAT (NEGATIVE) Blood Type Antibody Screen Diagnostic Findings CT head/brain wo con CLINICAL HISTORY: Stroke Like Symptoms COMPARISON STUDY: No previous studies for comparison. TECHNIQUE: Axial CT of the brain is performed from the vertex to the skull base. IV contrast was not administered for this examination. A dose lowering technique was utilized adhering to the principles of ALARA. CT DOSE: FINDINGS: No intra or extra-axial mass lesions are visualized. There is no CT evidence of acute cortical infarction. There is no evidence of midline shift. There is no acute hemorrhage. No calvarial fractures are visualized. There are patchy white matter hypodensities likely on a small vessel basis. There is no evidence of pathologic ventricular dilatation. There is no evidence of acute sinusitis IMPRESSION: No acute intracranial findings ACT 112: Negative or not required by law. Electronically signed by: Juan Domínguez M.D. 09/06/2020 7:[address] angio head w con CLINICAL HISTORY: Stroke Like Symptoms TECHNIQUE: CT angiography of the head was performed in a dynamic helical fashion during intravenous administration of 119 cc of Optiray 320. MIP imaging was performed. A dose lowering technique was utilized adhering to the principles of ALARA. CT DOSE: 953.93 mGy.cm COMPARISON STUDY: No previous studies for comparison. FINDINGS: There are no lesion suspicious for aneurysm. There are no major intracranial branch occlusions. The dural venous sinuses appear patent. There is long segment narrowing of the distal right vertebral artery. 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 No evidence of aneurysm 2. No evidence of major intracranial branch occlusion 3. Long segment narrowing of the distal right vertebral artery 4. Hard palate hyperostosis ACT 112: Negative or not required by law. Electronically signed by: Juan Domínguez M.D. 09/06/2020 7:[address] angio neck with con CLINICAL HISTORY: Stroke Like Symptoms COMPARISON STUDY: No previous studies for comparison. TECHNIQUE: CT angiography was performed from the aortic arch to the skull base. MIP imaging was performed. The patient was scanned in a dynamic helical fashion during intravenous administration of 119 cc of Optiray 320. A dose lowering technique was utilized adhering to the principles of ALARA. CT DOSE: Technique: CT angiogram of the carotid and vertebral arteries was obtained using intravenous contrast and 3-D reconstruction. NASCET criteria was utilized. Findings: There is a 31 mm right lobe thyroid nodule. This remains unchanged from prior ultrasound study dated 02/15/2020 There are atheromatous changes the right carotid bulb without evidence of hemodynamically significant stenosis. The left carotid revealed no evidence of hemodynamic significant stenosis. There is no evidence of aneurysm. There is no evidence of dissection. There is a long segment narrowing of the distal right vertebral artery. There is no evidence of vertebral dissection. There is a dominant left vertebral artery. IMPRESSION: 1. No evidence of hemodynamically significant carotid stenosis 2. Moderate long segment narrowing of the distal right vertebral artery. 3. Stable 31 mm right lobe thyroid nodule ACT 112: Negative or not required by law. Electronically signed by: Juan Domínguez M.D. 09/06/2020 7:52 PM Code Status & VTE Plan VTE Prophylaxis Plan VTE Prophylaxis will be ordered: Yes Supervising Physician Co-Signing Physician Notes Attending addendum: I have physically seen this patient, have supervised the medical residents activities, and agree with the H&P unless as otherwise noted. Assessment and Plan: CVA- CT head negative CTA head shows long segment narrowing of the distal right vertebral artery CTA neck shows the above and a stable 31 mm right lobe thyroid nodule MRI brain without contrast pending Transthoracic echo ordered. Concerned that with a history of A. fib and clear CT of head, may needed CATHY to assess for possible embolic phenomenon Stroke without TPA order set Consult PT/OT/speech therapy/neurology Atrial fibrillation with RVR/elevated troponin- The patient will be admitted to telemetry for serial cardiac enzymes, serial EKG's, cardiac rhythm monitoring and a 2-D echocardiogram with Dopplers. Troponin 0.522 upon admission likely type II, but will follow as noted. Xarelto 20 mg daily as an outpatient, to be continued Metoprolol succinate 100 mg p.o. daily Remaining orders and notations as noted Resident Activity Tracking Resident Involvement: Resident Care Provided Care Provided: Adult Hospital Medicine
[2020-09-06] MEDS ORDERED: ONDANSETRON INJ 2 MG/ML 2 ML VIAL IV PRN (23:14)
[2020-09-06] MEDS ORDERED: ACETAMINOPHEN 325 MG TAB PO PRN (23:14)
[2020-09-06] MEDS ORDERED: MAGNESIUM HYDROXIDE SUSP 30 ML UDC PO PRN (23:14)
[2020-09-06] MEDS ORDERED: ALUMINUM/MAGNESIUM SUSP 30 ML UDC PO PRN (23:14)
[2020-09-06] MEDS ORDERED: PHARMACIST DISCHARGE MED REC CONSULT PRN (23:14)
[2020-09-06] MEDS ORDERED: POLYETHYLENE (MIRALAX) 17 GM PACK PO PRN (23:14)
[2020-09-07 00:12] LABS: Troponin I 0.601 ng/ml (0-0.045)
[2020-09-07] MEDS ORDERED: Heparin IV Adult Wt-Based Low-Dose *NO* Bolus Protocol IV STA (01:48)
[2020-09-07] MEDS: HEPARIN SODIUM/DEXTROSE 25,000 UNITS/500 ML BAG IV SCH (02:20)
--- NOTE | 2020-09-07 07:17 | Magnetic Resonance Report ---
MR brain wo con HISTORY: 85 years-old Female stroke workup, focal weakness L hand acute strokelike symptoms COMPARISON: Head CT, CTA head and neck studies 09/06/2020 TECHNIQUE: Multiplanar multisequence MR of the brain was obtained without the use of IV contrast. FINDINGS: Director Of Home Health Services localizer images demonstrate no gross extracranial abnormality. Numerous small areas of probabl y cortically based restricted diffusion noted within the watershed distributions of the centrum semio grover and cortical distributions of the frontal parietal lobes including the right motor cortex. Addit ional tiny foci also noted within the periventricular distributions of the frontal and parietal occip ital lobes and left caudate head. Numerous small foci are also seen within the bilateral cerebellar h emispheres. These foci demonstrate decreased signal on ADC map with increased signal on the T2/FLAIR series. Age-related involutional changes with extensive T2/FLAIR hyperintensities suggestive of advanced chronometer repairer antony microvascular ischemic disease. There is no acute intracranial hemorrhage, midline shift, abnorma l extra-axial collection, hydrocephalus or intracranial mass. There is a lobular 1.5 x 1.6 x 1.8 cm l esion of the right parotid gland with intermediate signal on the T1 series. The cerebral venous sinus es and major arterial flow voids are patent. Unremarkable and orbits and calvarium. Mastoid air cells and paranasal sinuses are clear. IMPRESSION: 1. Numerous scattered acute infarcts as above within the bilateral cerebral hemispheres and watershed distributions, left caudate nucleus and cerebellar hemispheres, likely from a cardioembolic source. 2. No acute intracranial hemorrhage or midline shift. 3. Age-related involutional changes with extensive chronic microvascular ischemic disease. 4. Indeterminate 1.8 cm T2 hyperintense lesion of the right parotid gland. ACT 112: Negative or not required by law. The above report was generated using voice recognition software. It may contain grammatical, syntax o r spelling errors. Electronically signed by: Evin Bardales M.D. 09/07/2020 7:16 AM
--- NOTE | 2020-09-07 07:55 | XRay Report ---
XR chest 1V portable CLINICAL HISTORY: leukocytosis, CVA COMPARISON STUDY: 08/06/2011 FINDINGS: The heart is mildly enlarged. There is aortic tortuosity/ectasia. There is a retrocardiac o pacity consistent with a hiatal hernia. There are old rib fractures. There is no lobar consolidation. There is mild nonspecific interstitial thickening. There is deviation of the trachea at the thoracic inlet to the left of midline. This may indicate a thyroid goiter.[ IMPRESSION: 1. Cardiomegaly 2. Hiatal hernia 3. Possible thyroid goiter 4. Mild nonspecific interstitial thickening. No evidence of lobar consolidation ACT 112: Negative or not required by law. Electronically signed by: Juan Domínguez M.D. 09/07/2020 7:54 AM
[2020-09-07] MEDS ORDERED: METOPROLOL SUCC 50MG EXT REL TAB PO STA (08:19)
[2020-09-07] MEDS: CHLORTHALIDONE 25 MG TAB PO SCH (08:53)
[2020-09-07] MEDS: FERROUS SULFATE 325 MG TAB PO SCH (08:53)
[2020-09-07] MEDS: CHOLECALCIFEROL 1,000 UNITS 25 MCG TAB PO SCH (08:53)
[2020-09-07] MEDS: ASCORBIC ACID 500 MG TAB PO SCH (08:53)
[2020-09-07] MEDS: MULTIVITAMIN TAB PO SCH (08:54)
[2020-09-07 08:56] LABS: Basophils # (auto) 0.02 K/uL (0-0.2); Basophils % (auto) 0.2 %; Eosinophils # (auto) 0.19 K/uL (0-0.5); Eosinophils % (auto) 1.5 %; Hematocrit (blood only) 27.6 % (37-47); Hemoglobin 9.4 g/dL (12.0-16.0); Immature Granulocytes # (auto) 0.03 K/uL (0.00-0.02); Immature Granulocytes % (auto) 0.2 %; Lymphocytes # (auto) 1.08 K/uL (1.2-3.4); Lymphocytes % (auto) 8.5 %; Mean Corpuscular Hemoglobin 30.8 pg (25-34); Mean Corpuscular Hgb Conc 34.1 g/dL (32-36); Mean Corpuscular Volume 90.5 fL (80-100); Mean Platelet Volume 9.6 fL (7.4-10.4); Monocytes # (auto) 0.92 K/uL (0.11-0.59); Monocytes % (auto) 7.3 %; Neutrophils # (auto) 10.44 K/uL (1.4-6.5); Neutrophils % (auto) 82.3 %; Platelet Count 217 K/uL (130-400); RDW Coefficient of Variation 14.8 % (11.5-14.5); Red Blood Count 3.05 M/uL (4.2-5.4); White Blood Count 12.68 K/uL (4.8-10.8)
[2020-09-07 09:06] LABS: INR 1.3 (0.9-1.1); Partial Thromboplastin Ratio 1.3; Partial Thromboplastin Time 33.5 Seconds (21.0-31.0)
[2020-09-07] MEDS ORDERED: SODIUM CHLORIDE 0.65% NA SOLN 45 ML (OCEAN) ONE (09:19)
[2020-09-07 09:21] LABS: Albumin Level 2.5 gm/dl (3.4-5.0); Bilirubin Direct 0.5 mg/dl (0-0.2); Calcium 9.2 mg/dl (8.5-10.1); Creatinine Clr Calc Pharmacy 51.7 ml/min; Est GFR (African American) 92.2; Est GFR (Non-African American) 79.6; Potassium 3.5 mmol/L (3.5-5.1)
--- NOTE | 2020-09-07 09:46 | Hospitalist Progress Note ---
Date of Service September 07, 2020 Assessment & Plan (1) Acute CVA (cerebrovascular accident): Rosie De Guzman is an 85 y/o female with a PMHx of atrial fibrillation, h/o PE in 2011, MVP, anxiety, HTN, HLD, hyperlipidemia, hypothyroidism, iron deficiency anemia who was admitted 09/06/20 for new-onset LUE weakness, subsequently found to have evidence of numerous acute infarcts in the cerebrum, L caudate nucleus, and cerebellar hemispheres, concerning for a cardioembolic source in the setting of ongoing dysphagia for ~2 months time. She remains hemodynamically stable. 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 -- Likely from cardioembolic source based on MRI - Clinically, patient p/w 2-day course of balance difficulty --> left arm numbness/weakness - Very likely cardioembolic, however specific DDX includes: ingestion failure 2/2 ongoing dysphagia, Xarelto failure, compliance issue, aortic plaque rupture - Work-up significant for following - Atrial fibrillation with RVR upon arrival - CT-H: No acute findings - CTA-Head/Neck: No occlusion; no carotid stenosis, long segment narrowing of distal RVA - MRI Brain: Numerous scattered acute infarcts within b/l cerebrum and watershed areas, L caudate, and cerebellar hemispheres -- likely from cardioembolic source. T2 hyperintense lesion of R parotid (1.8cm) - TTE ordered: Hyperdynamic LV. LVEF >70%. Moderate LVH. Moderate TR. - CT-A Chest w/ Contrast to evaluate for possible aortic plaque rupture - PT/OT/FUNDRAISING CONSULTANT ordered - Consult neurology, cardiology - Scheduled neuro checks - Heparin gtt for now -- once cause is determined (e.g., plaque vs. fibrillation-related), can consider d/c Atrial Fibrillation with RVR -- Asymptomatic at present - Hold home metoprolol for now -- given significant dysphagia, unsure if she's getting these down --> ?resulting RVR - Lopressor 5mg IV q6h CAMERON right now -- can consider +5mg IV q4h as needed for HRs > 110 - Consult cardiology, appreciate insight and recommendations - Hold home Xarelto for now Elevated Troponin -- Asymptomatic - Troponin elevated at 0.522 on admission --> 0.601 --> 0.679 - Suspect secondary to stress reaction, however, will trend troponin - Consult cardiology Leukocytosis -- appreciated on admission, no symptoms of infectio - Suspect secondary to stress response, likely acute CVA, and recent COVID vaccine - Work-up largely negative: - UA w/ no sign of infection - CXR: interstital thickening, no consolidations or acute processes - COVID negative 09/06/20 - CBC qAM while here Elevated LFTs, Mild - AST slightly elevated at 53, ALT 49, and alk phos slightly elevated at 166 - CK ordered and pending - INR noted to be low - Trend HFP and INR in AM Dysphagia - Complaint of dysphagia for 2+ months; no dysphagia w/ liquids - Associated unintentional weight loss of > 10 lbs. in 1 month - Recommend that this c/o dysphagia be addressed once stroke workup is further assessed - Consider upper GI study vs. EGD - Consult GI, appreciate insight and recommendations: - DDX: Neuromuscular dysphagia, esophageal web vs. stricture vs. mass - Consider outpatient EGD if video swallow study is normal - FUNDRAISING CONSULTANT consulted -- proceed with video swallow study History of Iron Deficiency Anemia - Current anemia with Hgb 9-11; no recent Hgb in our system or from PCP records for comparison - Per PCP records, in 12/2015, Hgb 14.1, ferritin 15.6, and iron 130 (improved from 07/2015 when Hgb 10.1, ferritin 7.9, and iron 67) - Transfuse if Hgb < 7 - Continue home iron Hyperlipidemia - Continue home atorvastatin - Will get fasting lipid profile tomorrow AM as part of stroke workup Hypertension - Allow for permissive HTN - Continue home chlorthalidone, lisinopril 40mg po qPM FENGI: NPO DVT Ppx: Hep gtt Dispo: Tele Code status: DNR/DNI (2) Atrial fibrillation with rapid ventricular response: (3) Elevated troponin: (4) Dysphagia: (5) Hyperlipidemia: (6) Unintentional weight loss: (7) Anticoagulated by anticoagulation treatment: (8) Anxiety: (9) Hypertension: (10) Iron deficiency anemia: (11) Leukocytosis: Admission and Anticipated Discharge Date Admission Date: September 06, 2020 Supervising Physician Co-Signing Physician Notes I personally examined the patient and verified all luis points of history and exam, discussed case, and agree with decision making with Dr Murillo. Feeling about the same. Left hand not really working right. After extensive discussions with patient, son enters the room and I reiterate many of the discussions, he also notes that when they brought her in he noticed significant balance issues when she was walking. She notes the dysphagia is been going on for quite a long time and seems to have been progressive. Vitals noted, in general she is awake and alert pleasant no distress. HEENT normocephalic atraumatic mucous membranes moist. Breathing unlabored no accessory muscle use good effort. Skin shows no rashes no pallor or icterus. Neuro exam as above. Labs and diagnostics noted. Embolic CVAscentral embolic source seems most likely given by hemispheric multiple strokes. The differential would be difficulty with adherence with her Xarelto (which seems highly unlikely after asking her about her medication regimen) failure of Xarelto (which seemed possible given the short half-life of the medication, although it is something that I personally have not seen) or a d ifferent source of central embolismsuch as a proximal aortic plaque rupture. To that end, we anticipated a move from Xarelto to something with a longer half- life and possibly also with a different mechanism of action (i.e. Pradaxa to meet both criteria, or Eliquis to at least have a longer half-life), but in reviewing CT chest that was done to look for any kind of proximal aortic pathology, unfortunately a diffuse metastatic picture was unearthed. More than likely hypercoagulability from malignancy broke through the Xarelto. PT/OT eval and treat, anticipate need for rehab. DysphagiaI strongly suspect some degree of distal esophageal pathologyhopefully just a strictureGI is doing an EGD on Thursday. Metastatic malignancy pictureCT abdomen pelvis to better characterize the liver lesions, as well as look for some semblance of the source of primary as well as other mets. She does have spots in her lungs, her stroke work-up incidentally yielded no findings of metastases in her brain, EGD will evaluate the esophagus as a possible source, and then from there if the source is not clear, we will need to discuss further work-up. A. fibcontinue rate controlgiven that she is having some difficulty swallowing we have switched over to IV metoprolol. Weighing the risks and benefits of anticoagulation, given that she was showering emboli in spite of Xarelto, and not showing any significant bleeding, while the therapeutic margin of anticoagulation right after an embolic stroke is a little bit debatable, in her individual situation it appears that the benefits of having her anticoagulated, and therefore protecting her brain from further emboli, outweigh the risk of a rebound bleed. Obviously we will be following her closely. Subjective Patient seen at bedside this morning. No acute events overnight. Overall, she reports feeling well, however she is having difficulty moving her left hand and wrist. Says that this is new to her. She denies any chest pain, palpitations, shortness of breath overnight. Reviewed history with her at the bedside, no additions to add at this time. Review of Systems Review of Systems: As per HPI Physical Exam Constitutional: Overall, well-appearing 85-year-old female who is lying back in her hospital bed, relaxed upon my arrival. She converses freely and without difficulty. No dysarthria appreciated no acute distress. Respiratory: Good respiratory effort with symmetric expansion of the chest. Lungs are clear to auscultation bilaterally without crackles or wheezes. Cardiovascular: Normal rate, irregular rhythm. S1 and S2 are present without murmurs rubs or gallops. Gastrointestinal (Abdomen): Normal active bowel sounds. Abdomen is soft, nontender, nondistended. Neurologic: Patient is alert and oriented x3. Cranial nerves II through XII grossly intact Upper extremity strength is significant for the following: Right upper extremity demonstrating 5 out of 5 strength at the elbows, wrist, and fingers. Left upper extremity demonstrates 5 out of 5 strength at the elbow, but patient is unable to move her left wrist or fingers in an appreciable manner that ranges just strength. Left lower extremity strength does appear to be 5 out of 5 bilaterally. Brachial radialis and biceps reflexes are 2+ in the upper extremities. No clonus in the lower extremities. Left upper extremity did display dysdiadochokinesia. Results & Data Results & Data ([facility]) Vital Signs (Past 12 Hours) Vital Signs Temp Pulse Pulse Pulse Resp BP BP 09/07/20 07:27 36.7 C 119 H 17 130/77 09/07/20 03:26 36.5 C 95 H 19 114/75 09/06/20 22:55 36.8 C 117 H 17 154/86 H 09/06/20 22:00 113 H 22 125/74 09/06/20 21:30 106 H 22 140/84 Pulse Ox 09/07/20 07:27 94 09/07/20 03:26 96 09/06/20 22:55 98 09/06/20 22:00 96 09/06/20 21:30 96 Resident Activity Tracking Resident Involvement: Resident Care Provided Care Provided: Adult Hospital Medicine
[2020-09-07 09:57] LABS: Estimated Average Glucose 111 mg/dl; Hemoglobin A1C 5.5 % (4.5-5.6)
[2020-09-07] MEDS ORDERED: HEPARIN IV BOLUS 2,000 UNITS in SYRINGE 0 ML IV ONE (10:00)
[2020-09-07 10:22] LABS: Bilirubin,Total 1.3 mg/dl (0.2-1); Total Protein 6.4 gm/dl (6.4-8.2)
--- NOTE | 2020-09-07 10:25 | Gastrointestinal Consultation ---
Date of Consultation September 07, 2020 Assessment & Plan (1) Acute CVA (cerebrovascular accident): (2) Dysphagia: DDx: neuromuscular vs web vs stricture vs mass vs other. Patient now with acute CVA and need for anticoagulation. 1. Due to this, patient should under a formal ASSEMBLIES AND INSTALLATIONS INSPECTOR evaluation and video swallow. 2. If normal, can consider EGD as an outpatient once acute neurological issues have been managed. 3. Await input from neurology. 4. Continue supportive care. Thank you for allowing us to participate in the care of this pleasant patient. If you have any questions or concerns, please do not hesitate to contact us. Supervising Physician Co-Signing Physician Notes I personally evaluated the patient and agree with the findings as documented by KAYLEN Mclaughlin Exam: abd: soft, nt, nd barium swallow notes possible stricture, hiatal hernia. agree with ASSEMBLIES AND INSTALLATIONS INSPECTOR video swallow eval, possible EGD early next week. management of stroke as per primary team and neurology. History of Present Illness Reason for Consultation: Dysphagia Requesting Physician: Dr. Hyatt Attending Physician: Elias Hunt DO History of Present Illness Patient is a very pleasant 85 year-old female with a history of chronic atrial fibrillation on Xarelto admitted with generalized progressive weakness and focal left hand weakness prior to arrival at the ER. She did undergo a neuro work up and MRI positive for multiple acute embolic infarcts consistent with acute CVA. GI has been consulted in this patient due to dysphagia and weight loss which she reports has preceded this admission and has been ongoing for the past several months. The dysphagia is solely to solid food ingestion and she is able to swallow liquids and medications without difficulty. Denies any odynophagia, pyrosis, n/v, abdominal pain, diarrhea, constipation, melena, hematochezia, and hematemesis. She endorses belching and food regurgitation. She is not on any acid suppressive therapy as an outpatient. She did have an EGD by Dr. Little in 2016 with findings of medium hiatus hernia. Allergies Allergy/AdvReac Type Severity Reaction Status Date / Time No Known Allergies Allergy Verified 09/06/20 19:09 Home Medications Medication Instructions Recorded Confirmed Type atorvastatin 40 mg PO QPM 09/06/20 09/06/20 History chlorthalidone 12.5 mg PO DAILY 09/06/20 09/06/20 History cholecalciferol (vitamin D3) 50 mcg PO QAM 09/06/20 09/06/20 History [Vitamin D3] iron,carbonyl-vitamin C [Vitron-C] 1 tab PO QAM 09/06/20 09/06/20 History lisinopril 40 mg PO QPM 09/06/20 09/06/20 History metoprolol succinate 150 mg PO QPM 09/06/20 09/06/20 History multivitamin [One A Day Vitamin] 1 tab PO QAM 09/06/20 09/06/20 History rivaroxaban [Xarelto] 20 mg PO QPM 09/06/20 09/06/20 History Patient History Medical History (Updated 09/07/20 @ 10:32 by KAYLEN Onofre) Anticoagulated by anticoagulation treatment Anxiety Chronic gastritis Colloid thyroid nodule Diverticulosis Dysphagia History of DVT (deep vein thrombosis) History of pulmonary embolism Hyperlipidemia Hypertension Iron deficiency anemia Mitral valve prolapse Unintentional weight loss Surgical History H/O breast biopsy History of esophagogastroduodenoscopy (EGD) Family History Sister Dementia Diabetes Heart disease Macular degeneration Osteoporosis Son Asthma Mother Macular degeneration Social History Smoking Status: Never smoker Hx Alcohol Use: Yes Alcohol type: wine Alcohol type Comment: socially w/ family Hx Substance Use: No Preferred Language: Frisian Communication Ability: Effective Beliefs That Will Affect Care: None marital status: Current Living Situation: Spouse Feels Safe at Home: Yes Safety Concerns: Feels Safe At This Time Assistive Devices: Glasses Review of Systems Review of Systems: All systems reviewed & are unremarkable except as noted in HPI & below Physical Exam Constitutional: WD/WN, vitals as above well developed and well nourished Eyes: EOM intact bilaterally Neck: normal visual inspection Respiratory: normal respiratory effort, lungs clear to auscultation Cardiovascular: Rate/Rhythm: + irregularly irregular Gastrointestinal (Abdomen): normal bowel sounds, soft, nontender, no hepatosplenomegaly Psychiatric: A+Ox3, euthymic affect Results & Data ([facility]) Vital Signs (Past 12 Hours) Vital Signs Temp Pulse Pulse Resp BP Pulse Ox 09/07/20 07:27 36.7 C 119 H 17 130/77 94 09/07/20 03:26 36.5 C 95 H 19 114/75 96 09/06/20 22:55 36.8 C 117 H 17 154/86 H 98 Laboratory Results Abnormal lab results 09/06/20 09/06/20 09/06/20 Range/Units 18:08 18:10 18:10 WBC 14.58 H (4.8-10.8) K/uL RBC 3.51 L (4.2-5.4) M/uL Hgb 11.0 L (12.0-16.0) g/dL Hct 32.2 L (37-47) % RDW Std Deviation 49.5 H (36.4-46.3) fL RDW Coeff of Ananth 14.7 H (11.5-14.5) % Neut # (Auto) 12.25 H (1.4-6.5) K/uL Lymph # (Auto) (1.2-3.4) K/uL [place] # (Auto) 0.91 H (0.11-0.59) K/uL Immature Gran # (Auto) 0.03 H (0.00-0.02) K/uL PT 13.1 H (9.0-12.0) Seconds INR 1.3 H (0.9-1.1) APTT (21.0-31.0) Seconds Sodium (136-145) mmol/L Glucose (70-99) mg/dl POC Glucose 122 H (70-99) mg/dl Total Bilirubin (0.2-1) mg/dl Direct Bilirubin (0-0.2) mg/dl AST (15-37) U/L Alkaline Phosphatase (45-117) U/L Troponin I (0-0.045) ng/ml Albumin (3.4-5.0) gm/dl Globulin (2.5-4.0) gm/dl Albumin/Globulin Ratio (0.9-2) Ur Specific [place] (1.000-1.030) Urine Protein (Negative) Urine Ketones (Negative) Urine Bilirubin (Negative) U Hyaline Cast (Auto) (0-5) /lpf U Epithel Cells (Auto) (0-5) /lpf 09/06/20 09/06/20 09/06/20 Range/Units 18:10 20:10 23:25 WBC (4.8-10.8) K/uL RBC (4.2-5.4) M/uL Hgb (12.0-16.0) g/dL Hct (37-47) % RDW Std Deviation (36.4-46.3) fL RDW Coeff of Ananth (11.5-14.5) % Neut # (Auto) (1.4-6.5) K/uL Lymph # (Auto) (1.2-3.4) K/uL [place] # (Auto) (0.11-0.59) K/uL Immature Gran # (Auto) (0.00-0.02) K/uL PT (9.0-12.0) Seconds INR (0.9-1.1) APTT (21.0-31.0) Seconds Sodium 132 L (136-145) mmol/L Glucose 112 H (70-99) mg/dl POC Glucose (70-99) mg/dl Total Bilirubin 1.5 H (0.2-1) mg/dl Direct Bilirubin (0-0.2) mg/dl AST 53 H (15-37) U/L Alkaline Phosphatase 166 H (45-117) U/L Troponin I 0.522 H* 0.601 H* (0-0.045) ng/ml Albumin 3.1 L (3.4-5.0) gm/dl Globulin 4.6 H (2.5-4.0) gm/dl Albumin/Globulin Ratio 0.7 L (0.9-2) Ur Specific [place] 1.041 H (1.000-1.030) Urine Protein 1+ H (Negative) Urine Ketones Trace H (Negative) Urine Bilirubin 1+ H (Negative) U Hyaline Cast (Auto) 5-10 H (0-5) /lpf U Epithel Cells (Auto) 20-30 H (0-5) /lpf 09/07/20 09/07/20 09/07/20 Range/Units 08:40 08:40 08:40 WBC 12.68 H (4.8-10.8) K/uL RBC 3.05 L (4.2-5.4) M/uL Hgb 9.4 L (12.0-16.0) g/dL Hct 27.6 L (37-47) % RDW Std Deviation 49.0 H (36.4-46.3) fL RDW Coeff of Ananth 14.8 H (11.5-14.5) % Neut # (Auto) 10.44 H (1.4-6.5) K/uL Lymph # (Auto) 1.08 L (1.2-3.4) K/uL [place] # (Auto) 0.92 H (0.11-0.59) K/uL Immature Gran # (Auto) 0.03 H (0.00-0.02) K/uL PT (9.0-12.0) Seconds INR (0.9-1.1) APTT (21.0-31.0) Seconds Sodium 133 L (136-145) mmol/L Glucose (70-99) mg/dl POC Glucose (70-99) mg/dl Total Bilirubin 1.3 H (0.2-1) mg/dl Direct Bilirubin 0.5 H (0-0.2) mg/dl AST 55 H (15-37) U/L Alkaline Phosphatase 139 H (45-117) U/L Troponin I 0.679 H* (0-0.045) ng/ml Albumin 2.5 L (3.4-5.0) gm/dl Globulin (2.5-4.0) gm/dl Albumin/Globulin Ratio (0.9-2) Ur Specific [place] (1.000-1.030) Urine Protein (Negative) Urine Ketones (Negative) Urine Bilirubin (Negative) U Hyaline Cast (Auto) (0-5) /lpf U Epithel Cells (Auto) (0-5) /lpf 09/07/20 Range/Units 08:40 WBC (4.8-10.8) K/uL RBC (4.2-5.4) M/uL Hgb (12.0-16.0) g/dL Hct (37-47) % RDW Std Deviation (36.4-46.3) fL RDW Coeff of Ananth (11.5-14.5) % Neut # (Auto) (1.4-6.5) K/uL Lymph # (Auto) (1.2-3.4) K/uL [place] # (Auto) (0.11-0.59) K/uL Immature Gran # (Auto) (0.00-0.02) K/uL PT 13.0 H (9.0-12.0) Seconds INR 1.3 H (0.9-1.1) APTT 33.5 H (21.0-31.0) Seconds Sodium (136-145) mmol/L Glucose (70-99) mg/dl POC Glucose (70-99) mg/dl Total Bilirubin (0.2-1) mg/dl Direct Bilirubin (0-0.2) mg/dl AST (15-37) U/L Alkaline Phosphatase (45-117) U/L Troponin I (0-0.045) ng/ml Albumin (3.4-5.0) gm/dl Globulin (2.5-4.0) gm/dl Albumin/Globulin Ratio (0.9-2) Ur Specific [place] (1.000-1.030) Urine Protein (Negative) Urine Ketones (Negative) Urine Bilirubin (Negative) U Hyaline Cast (Auto) (0-5) /lpf U Epithel Cells (Auto) (0-5) /lpf PG Care Time/CCT Total # of Minutes Spent Total Time Spent with Patient: Total time spent is greater than 50% in coordination of care (as documented) at patient's floor/unit and/or counseling patient: Coding Level of Care Code 99888 Initial Inpt Care Lvl 3 Diagnoses Acute CVA (cerebrovascular accident) I63.9 Dysphagia R13.10
[2020-09-07] MEDS ORDERED: METOPROLOL TARTRATE 1 MG/ML VIAL IV STA (11:07)
--- NOTE | 2020-09-07 12:24 | Electrocardiogram Report ---
Test Reason : Blood Pressure : / mmHG Vent. Rate : 115 BPM Atrial Rate : 098 BPM P-R Int : 000 ms QRS Dur : 080 ms QT Int : 314 ms P-R-T Axes : 000 012 -51 degrees QTc Int : 434 ms Atrial fibrillation with rapid ventricular response Nonspecific ST and T wave abnormality Abnormal ECG When compared with ECG of 05-AUG-2011 15:09, Atrial fibrillation has replaced Sinus rhythm Vent. rate has increased BY 39 BPM T wave inversion no longer evident in Lateral leads Confirmed by Evens Arroyo ([id number]) on 09/07/2020 12:24:00 PM Referred By: Ant Nieto Confirmed By:Evens Arroyo
--- NOTE | 2020-09-07 12:44 | XCELERA ---
[id number]
--- NOTE | 2020-09-07 14:36 | Neurology Consultation ---
Date of Consultation September 07, 2020 Assessment & Plan (1) Stroke: Rosie De Guzman is an 85 yo woman w/ PMH of HTN, HLD, Afib on xarelto, iron deficiency anemia, anxiety and vitamin D deficiency who p/t [facility] with acute onset of LUE weakness. 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, no LVO, high-grade stenosis or aneurysm noted - MRI brain: notable for multiple punctate acute and subacute infarcts in watershed distribution in bilateral cerebral hemispheres including bilateral cerebellum and left caudate head, moderate SVID with chronic strokes in the left cerebellum, right centrum semiovale and bilateral ganglia - TTE: EF >70%, mild AR, moderate LVH, mild to moderate MR, moderate TR - Telemetry: Afib with RVR - A1c: 5.5 - FLP: 64 - Troponin: 0.601 -> 0.679 Stroke Management: - Acute treatment: none, already on xarelto - Continuous cardiac monitoring - Vitals, Neurochecks, NIHSS per unit routine - BP parameters: SBP CAP 180, restart home anti-hypertensives, IV Labetalol PRN - Consult speech, PT, OT for supportive management - Will queen's counsel concerning stroke education, smoking cessation, healthy diet, physical activity, weight loss - Follow up with PCP for assistance with outpatient goals (BP <130/80, LDL <70, A1c <7) - Follow up in neurology clinic in 6-8 weeks with JORDI Josue Secondary Stroke Prevention: - Antiplatelet: not indicated - Anticoagulation: change to weight based lovenox given likely new cancer diagno sis - Statin: Atorvastatin 40mg daily HTN: - BP parameters, as above - Restart home medications with goal of lowering BP to normotension over next 3- 4 days FEN/GI: - Diet: NPO until cleared by Speech evaluation - Monitor lytes and replete PRN Glucose Control: - Sliding scale insulin and accuchecks per primary team to avoid hyperglycemia Thank you for this interesting consult. Plan of care was discussed with primary team. Please call with any questions. (2) Hypertension: (3) Anticoagulated by anticoagulation treatment: (4) Atrial fibrillation with rapid ventricular response: History of Present Illness Attending Physician: Elias Hunt DO History of Present Illness Rosie De Guzman is an 85 yo woman w/ PMH of HTN, HLD, Afib on xarelto, iron deficiency anemia, anxiety and vitamin D deficiency who p/t [facility] with acute onset of LUE weakness. D[employer] HAND unknown. In the ED, she was afebrile, BP 141/81, heart rate 127, respiratory rate 17, satting 90% on room air. EKG showed A. fib with RVR. Labs notable for WBC 14.58, hemoglobin 11 with MCV 91.7, platelets 267, sodium low at 132, potassium 3.7, creatinine 0.88, glucose 112, INR 1.3 AST mildly elevated 53 with normal ALT 49, alkaline phosphatase mildly elevated 166, troponin elevated 0.522, albumin low at 3.1, UA shows proteinuria and trace ketonuria with no infection. Imaging independently reviewed. CT head shows no hemorrhage, old stroke in the left cerebellum, no other loss of singh-white differentiation to suggest new hypodensity. 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 MRI brain notable for multiple punctate acute and subacute infarcts in watershed distribution in bilateral cerebral hemispheres including bilateral cerebellum and left caudate head, moderate SVID with chronic strokes in the left cerebellum, right centrum semiovale and bilateral ganglia. On examination, she reports that she was in her normal state of health until she got a COVID vaccine a few days ago and noticed onset of LUE numbness/weakness. She was unable to provide much other history other than endorsing fatigue unfortunately. Allergies Allergy/AdvReac Type Severity Reaction Status Date / Time No Known Allergies Allergy Verified 09/06/20 19:09 Home Medications Medication Instructions Recorded Confirmed Type atorvastatin 40 mg PO QPM 09/06/20 09/06/20 History chlorthalidone 12.5 mg PO DAILY 09/06/20 09/06/20 History cholecalciferol (vitamin D3) 50 mcg PO QAM 09/06/20 09/06/20 History [Vitamin D3] iron,carbonyl-vitamin C [Vitron-C] 1 tab PO QAM 09/06/20 09/06/20 History lisinopril 40 mg PO QPM 09/06/20 09/06/20 History metoprolol succinate 150 mg PO QPM 09/06/20 09/06/20 History multivitamin [One A Day Vitamin] 1 tab PO QAM 09/06/20 09/06/20 History rivaroxaban [Xarelto] 20 mg PO QPM 09/06/20 09/06/20 History Patient History Medical History (Updated 09/07/20 @ 16:12 by Lauren Yeung MD) Anticoagulated by anticoagulation treatment Anxiety Chronic gastritis Colloid thyroid nodule Diverticulosis Dysphagia History of DVT (deep vein thrombosis) History of pulmonary embolism Hyperlipidemia Hypertension Iron deficiency anemia Mitral valve prolapse Unintentional weight loss Surgical History H/O breast biopsy History of esophagogastroduodenoscopy (EGD) Family History Sister Dementia Diabetes Heart disease Macular degeneration Osteoporosis Son Asthma Mother Macular degeneration Social History Smoking Status: Never smoker Hx Alcohol Use: Yes Alcohol type: wine Alcohol type Comment: socially w/ family Hx Substance Use: No Preferred Language: Citizen Of [place] Communication Ability: Effective Beliefs That Will Affect Care: None marital status: Current Living Situation: Spouse Feels Safe at Home: Yes Safety Concerns: Feels Safe At This Time Assistive Devices: Glasses Review of Systems Review of Systems: 14 point review of systems completed and negative except as in HPI. Exam (Neuro) Physical Exam: General Exam: GEN: NAD, lying down in examination bed. HEENT: No conjunctival injection, no rhinorrhea. CV: RRR on monitor, no significant edema. PULM: Nonlabored respirations on room air. Neuro Exam: MS: Awake and Alert. Oriented to person, place, and date. Speech fluent and appropriate without dysarthria or paraphasic errors. Language intact including naming, comprehension, repetition. Cognition and memory mildly impaired Attention intact. No neglect. CN: Visual chaudhari full, + blink to threat bilaterally. No extinction to double simultaneous stimuli. Unable to visualize fundi on fundoscopic exam. PERRLA OU. EOMI without nystagmus. Facial sensation intact to LT. Facial muscles full and symmetric. Hearing intact to finger rub bilaterally. Uvula midline with symmetric palatal elevation. Shoulder shrug normal. Tongue midline. MOTOR: Normal bulk and tone. Slight pronator drift in LUE. RUE strength 5/5 at deltoids, biceps, triceps, wrist flexors and extensors, and finger flexors. LUE strength 4/5 at deltoids, 5-/5 biceps, 5-/5 triceps, 5/5 wrist flexors and extensors, and finger flexors. BLE strength 5/5 at iliopsoas, hamstrings, quadriceps, tibialis anterior, and gastrocnemius bilaterally. REFLEXES: 1+ at biceps, triceps, brachioradialis, 1+ patella, and absent Achilles bilaterally. Flexor plantar responses bilaterally. SENSORY: Intact to LT/vibration throughout, no extinction to double simultaneous stimuli. COORDINATION: No dysmetria or ataxia on defafe-px-prey bilaterally. Normal aMrco bilaterally. GAIT: Deferred due to physical status. NIH STROKE SCALE 1A. Level of Consciousness (0-3) = 0 1B. LOC Questions (0-2) = 0 1C. LOC Commands (0-2) = 0 2. Best Horizontal Gaze (0-2) = 0 3. Visual Chaudhari (0-3) = 0 4. Facial Palsy (0-3) = 0 5. Motor Arm Right (0-4) = 0 Left (0-4) = 1 6. Motor Leg Right (0-4) = 0 Left (0-4) = 0 7. Limb Ataxia (0-2) = 0 8. Sensory (0-2) = 0 9. Best Language (0-3) = 0 10. Dysarthria (0-2) = 0 11. Extinction and Inattention (0-2) = 0 NIHSS TOTAL = 1 Results & Data ([facility]) Vital Signs (Past 12 Hours) Vital Signs Temp Pulse Pulse Resp BP BP Pulse Ox 09/07/20 11:15 121 H 128/78 09/07/20 08:00 116 H 09/07/20 07:27 36.7 C 119 H 17 130/77 94 09/07/20 03:26 36.5 C 95 H 19 114/75 96 PG Care Time/CCT Total # of Minutes Spent Total Time Spent with Patient: Total time spent is greater than 50% in coordination of care (as documented) at patient's floor/unit and/or counseling patient: Coding Level of Care Code 23824 Initial Inpt Care Lvl 3 Diagnoses Stroke I63.9 Hypertension I10 Anticoagulated by anticoagulation treatment Z79.01 Atrial fibrillation with rapid ventricular response I48.91
--- NOTE | 2020-09-07 14:36 | Fluoroscopy Report ---
FL barium swallow CLINICAL HISTORY: solid food dysphagia COMPARISON STUDY: No previous studies for comparison. Fluoroscopy time: 2.4 minutes. Number of fluoroscopic images: 7. FINDINGS: Moderate esophageal dysmotility is noted. Mucosal detail is diminished on this examination. There is a moderate to large hiatal hernia with partially intrathoracic stomach. This represents a s liding-type hiatal hernia. There was persistent holdup of a 13 mm barium tablet within the distal eso phagus at the GE junction. An underlying stricture cannot be excluded on this exam. IMPRESSION: 1. Moderate to large sliding-type hiatal hernia with partially intrathoracic stomach. 2. Persistent holdup of a 13 mm barium tablet at the gastroesophageal junction. Underlying stricture or mucosal lesion cannot be excluded on this examination. GI consultation for consideration for endos copy is recommended. 3. Moderate esophageal dysmotility. ACT 112: Negative or not required by law. Electronically signed by: Ayden Ibrahim M.D. 09/07/2020 2:35 PM
--- NOTE | 2020-09-07 15:03 | Cardiology Consultation ---
Date of Consultation September 07, 2020 Assessment & Plan (1) Acute CVA (cerebrovascular accident): -suspect cardioembolic related to her atrial fibrillation. -her situation may represent a Xarelto failure. -would consider a change to Eliquis 5 mg b.i.d. -no need for CATHY. (2) Atrial fibrillation with rapid ventricular response: -the patient has missed several doses of her metoprolol succinate. -would bridge her with intravenous metoprolol tartrate. -continue metoprolol succinate at 150 mg daily. (3) Elevated troponin: -likely supply demand mismatch realizing her rapid ventricular response and moderate LVH. (4) Hypertension: -adequate control on current regimen. (5) Hyperlipidemia: -continue atorvastatin. History of Present Illness Attending Physician: Elias Hunt DO History of Present Illness Mrs. De Guzman is an 85-year-old female admitted last evening with left hand weakness felt to be secondary to a CVA. The patient has known permanent atrial fibrillation and on long-term anticoagulation. This consultation was ordered to assist in her management. Of note, the patient was seen by Dr. Godinez in August 2017. The patient was in her usual state of health until Thursday when she noticed the abrupt onset of weakness and numbness of her left hand. She presented to her primary care office and was immediately sent to the emergency room for further care. The patient does carry history of known permanent atrial fibrillation. She takes Xarelto 20 mg daily as her long-term anticoagulant along with metoprolol succinate for rate control. The patient claims to be very compliant with her medications. Currently, patient is resting comfortably in bed without complaints. Past medical and surgical history 1. Hypertension 2. Moderate LVH 3. Hypercholesterolemia 4. Permanent atrial fibrillation 5. Mild aortic insufficiency next 6. [id number] mitral regurgitation 7. Moderate tricuspid regurgitation 8. Iron deficiency anemia 9. GERD 10. Anxiety 11. History of DVT/PE-2011 12. Diverticulosis 13. Thyroid nodule Social history and lives with her No tobacco Social alcohol Family history Noncontributory Review systems A 10 review systems was undertaken and negative except for that described above. Allergies Allergy/AdvReac Type Severity Reaction Status Date / Time No Known Allergies Allergy Verified 09/06/20 19:09 Home Medications Medication Instructions Recorded Confirmed Type atorvastatin 40 mg PO QPM 09/06/20 09/06/20 History chlorthalidone 12.5 mg PO DAILY 09/06/20 09/06/20 History cholecalciferol (vitamin D3) 50 mcg PO QAM 09/06/20 09/06/20 History [Vitamin D3] iron,carbonyl-vitamin C [Vitron-C] 1 tab PO QAM 09/06/20 09/06/20 History lisinopril 40 mg PO QPM 09/06/20 09/06/20 History metoprolol succinate 150 mg PO QPM 09/06/20 09/06/20 History multivitamin [One A Day Vitamin] 1 tab PO QAM 09/06/20 09/06/20 History rivaroxaban [Xarelto] 20 mg PO QPM 09/06/20 09/06/20 History Patient History Medical History (Updated 09/07/20 @ 10:32 by KAYLEN Onofre) Anticoagulated by anticoagulation treatment Anxiety Chronic gastritis Colloid thyroid nodule Diverticulosis Dysphagia History of DVT (deep vein thrombosis) History of pulmonary embolism Hyperlipidemia Hypertension Iron deficiency anemia Mitral valve prolapse Unintentional weight loss Surgical History H/O breast biopsy History of esophagogastroduodenoscopy (EGD) Family History Sister Dementia Diabetes Heart disease Macular degeneration Osteoporosis Son Asthma Mother Macular degeneration Social History Smoking Status: Never smoker Hx Alcohol Use: Yes Alcohol type: wine Alcohol type Comment: socially w/ family Hx Substance Use: No Preferred Language: Latvian Communication Ability: Effective Beliefs That Will Affect Care: None marital status: Current Living Situation: Spouse Feels Safe at Home: Yes Safety Concerns: Feels Safe At This Time Assistive Devices: Glasses Physical Exam Physical Exam: In general is well-developed well-nourished white female no acute distress. HEENT exam is negative. Neck is supple with full carotid upstrokes. No carotid bruits. Jugular is pressure is flat at 90. No thyromegaly. Cardiovascular exam reveals an irregular irregular rhythm with distant heart sounds. No obvious murmurs. Lungs are clear without rales, rhonchi or wheeze. Abdomen is soft without bruits. Extremities reveal intact radial artery pulses bilaterally. Left hand is contracted. There is no periph eral edema. Results & Data ([facility]) Vital Signs (Past 12 Hours) Vital Signs Temp Pulse Pulse Resp BP BP Pulse Ox 09/07/20 11:15 121 H 128/78 09/07/20 08:00 116 H 09/07/20 07:27 36.7 C 119 H 17 130/77 94 09/07/20 03:26 36.5 C 95 H 19 114/75 96 Laboratory Results CBC notes hemoglobin of 9.4, crit 27.6, white count 12.68, platelet count [id number]. Electrolytes note a sodium of 132, potassium 3.7, chloride 98, bicarb 2 6, BUN 16, creatinine 0.88, glucose of 112. Initial troponin was 0.522 with a follow-up value of 0.601. Diagnostic Findings EKG notes atrial fibrillation with rapid ventricular response. There is nonspecific ST and T-wave abnormality. Echocardiogram notes hyperdynamic systolic function with ejection fraction of greater than 70%. There is moderate LVH, mild aortic insufficiency, htvw-te-eoanvoww mitral regurgitation, and moderate tricuspid regurgitation. MRI of the brain notes scattered acute infarcts in the bilateral hemispheres, the left caudate, and the cerebellum. These are likely cardioembolic. PG Care Time/CCT Total # of Minutes Spent Total Time Spent with Patient: Total time spent is greater than 50% in coordination of care (as documented) at patient's floor/unit and/or counseling patient: Coding Level of Care Code 72812 OBS Care - Level 3 Diagnoses Acute CVA (cerebrovascular accident) I63.9 Atrial fibrillation with rapid ventricular response I48.91 Elevated troponin R77.8 Hypertension I10 Hyperlipidemia E78.5
[2020-09-07] MEDS ORDERED: OPTIRAY 320 125ml IV ONE (16:14)
[2020-09-07 16:40] LABS: Partial Thromboplastin Ratio 1.9
--- NOTE | 2020-09-07 16:42 | CT Scan Report ---
CT ANGIOGRAM OF THE CHEST COMBO CLINICAL HISTORY: Stroke. COMPARISON STUDY: Chest CT dated 08/05/2011. Chest x-ray dated 09/07/2020. TECHNIQUE: Before and following the IV administration of 119 cc of Optiray 320, CT angiogram of the c hest was performed from the thoracic inlet to the upper abdomen utilizing the dissection protocol. Im ages are reviewed in the axial, sagittal, and coronal planes. 3-D MIPS images are created and assesse d. IV contrast was administered without complication. A dose lowering technique was utilized adherin g to the principles of ALARA. CT DOSE: 442.74 mGy.cm FINDINGS: Thyroid: The thyroid gland is enlarged and heterogeneous. A low-attenuation nodule in the right lobe measures up to 3.5 cm. This is been present dating back to 2011. Thoracic aorta: No intramural hematoma is seen on the unenhanced series. There is mild atheroscleroti c calcification of the thoracic aorta. There is ectasia of the ascending thoracic aorta which measure s up to 3.7 cm. The remainder of the thoracic aorta is normal in caliber, and the arch demonstrates s tandard 3-vessel anatomy. No dissection is seen. Pulmonary vasculature: The main pulmonary arteries are mildly dilated suggesting pulmonary artery hyp ertension. There are no large or central pulmonary emboli. There are tiny and age indeterminant pulmo nary emboli within peripheral branches of the right and left lower lobe pulmonary arteries seen on im ages #161, #162, #199, and #200. Trace thrombus within a branch of the right upper lobe pulmonary art jil is seen on image #71. Heart: The heart is enlarged and without pericardial effusion. The coronary arteries are densely calc ified. Lungs and pleural spaces: There is no lobar consolidation typical for pneumonia. The trachea and cent ral airways are clear. There is a cluster of nodules in the left upper lobe seen on image #101. There are numerous (greater than 10) additional small nodules scattered throughout both lungs measuring up to 5 mm. [employer] nodules are seen in the left upper lobe on images #83, #91, #102 and in the right lower lobe on image #177. Mild diffuse intralobular septal thickening suggests congestive failu re. There are trace pleural effusions. Scarring/atelectasis is seen at both lung bases. Mediastinum: There is no mediastinal lymphadenopathy. Marilou: Clear. Axillae: There is no axillary lymphadenopathy. Upper abdomen: There is a large hiatal hernia, with over half the stomach located in the thoracic cav ity the liver is enlarged and heterogeneous. There is evidence of diffuse/widespread hepatic metastat ic disease. Nodularity of the hepatic surface contour may represent changes of cirrhosis versus pseud ocirrhosis. Skeletal structures: The skeletal structures are osteopenic. No lytic or blastic bony lesions are see n. Mild degenerative changes noted in the thoracic spine. There are healed right-sided rib fractures. IMPRESSION: 1. Findings are consistent with extensive/diffuse multifocal hepatic metastatic disease. 2. Nodularity of the hepatic service contour suggests changes of cirrhosis versus pseudocirrhosis. 3. There are several small and age indeterminant peripheral pulmonary emboli as detailed above. 4. There is mild ectasia of the ascending thoracic aorta which measures up to 3.7 cm diameter. 5. The thoracic aorta is otherwise normal in appearance. No dissection is seen. 6. There are small clustered pulmonary nodules in the left upper lobe, as well as at least 10 additio nal subcentimeter pulmonary nodules scattered throughout both lungs. This favors a chronic infectious /inflammatory etiology; however, given the findings in the liver metastatic disease is not excluded. Attention at follow-up is recommended. 7. Cardiomegaly and trace pleural effusions. Intralobular septal thickening suggests a component of c ongestive failure. 8. There is no lobar consolidation typical for pneumonia. 9. Large hiatal hernia. 10. Additional findings as above. ACT 112: Negative or not required by law. Electronically signed by: Travon Avalos M.D. 09/07/2020 4:41 PM
--- NOTE | 2020-09-07 17:50 | Billing Data ---
Date of Service September 07, 2020 Coding Level of Care Code 89751 Subseq Hosp Care Lvl 3
[2020-09-07] MEDS ORDERED: MELATONIN 3 MG TAB PO PRN (18:11)
[2020-09-07] MEDS: METOPROLOL TARTRATE 1 MG/ML VIAL IV SCH (18:24)
[2020-09-07] MEDS ORDERED: RIVAROXABAN 20 MG TAB PO SCH (21:00)
[2020-09-07] MEDS ORDERED: METOPROLOL SUCC 50MG EXT REL TAB PO SCH (21:00)
[2020-09-07] MEDS: lisinopril 40 MG TAB PO SCH (22:04)
[2020-09-07] MEDS: ATORVASTATIN 40 MG TAB PO SCH (22:04)
--- NOTE | 2020-09-07 23:45 | Billing Data ---
Date of Service September 07, 2020 Coding Level of Care Code 17655 Initial Inpt Care Lvl 3
[2020-09-08] MEDS: METOPROLOL TARTRATE 1 MG/ML VIAL IV SCH ×5 (00:30→23:13)
[2020-09-08] MEDS: HEPARIN SODIUM/DEXTROSE 25,000 UNITS/500 ML BAG IV SCH (05:20)
[2020-09-08 07:01] LABS: Basophils # (auto) 0.03 K/uL (0-0.2); Basophils % (auto) 0.2 %; Eosinophils # (auto) 0.29 K/uL (0-0.5); Eosinophils % (auto) 2.4 %; Hematocrit (blood only) 27.2 % (37-47); Hemoglobin 9.1 g/dL (12.0-16.0); Immature Granulocytes # (auto) 0.02 K/uL (0.00-0.02); Immature Granulocytes % (auto) 0.2 %; Lymphocytes # (auto) 1.32 K/uL (1.2-3.4); Lymphocytes % (auto) 10.8 %; Mean Corpuscular Hemoglobin 30.8 pg (25-34); Mean Corpuscular Hgb Conc 33.5 g/dL (32-36); Mean Corpuscular Volume 92.2 fL (80-100); Mean Platelet Volume 9.9 fL (7.4-10.4); Monocytes # (auto) 0.74 K/uL (0.11-0.59); Monocytes % (auto) 6.1 %; Neutrophils # (auto) 9.77 K/uL (1.4-6.5); Neutrophils % (auto) 80.3 %; Platelet Count 214 K/uL (130-400); RDW Coefficient of Variation 14.9 % (11.5-14.5); RDW Standard Deviation 50.4 fL (36.4-46.3); Red Blood Count 2.95 M/uL (4.2-5.4); White Blood Count 12.17 K/uL (4.8-10.8)
[2020-09-08 07:21] LABS: Partial Thromboplastin Ratio 1.8
[2020-09-08 07:25] LABS: Partial Thromboplastin Time 46.3 Seconds (21.0-31.0)
[2020-09-08 07:29] LABS: Albumin Level 2.2 gm/dl (3.4-5.0); BUN Creatinine Ratio 19.3 (10-20); Calcium 8.8 mg/dl (8.5-10.1); Creatinine Clr Calc Pharmacy 55.6 ml/min; Est GFR (African American) 94.5; Est GFR (Non-African American) 81.5; Potassium 3.4 mmol/L (3.5-5.1)
[2020-09-08 07:32] LABS: Bilirubin Direct 0.6 mg/dl (0-0.2); Bilirubin,Total 1.1 mg/dl (0.2-1); Total Protein 5.9 gm/dl (6.4-8.2)
--- NOTE | 2020-09-08 07:46 | Hospitalist Progress Note ---
Date of Service September 08, 2020 Assessment & Plan (1) Acute CVA (cerebrovascular accident): Rosie De Guzman is an 85 y/o female with a PMHx of atrial fibrillation, h/o PE in 2011, MVP, anxiety, HTN, HLD, hyperlipidemia, hypothyroidism, iron deficiency anemia who was admitted 09/06/20 for new-onset LUE weakness, subsequently found to have evidence of numerous acute infarcts in the cerebrum, L caudate nucleus, and cerebellar hemispheres, concerning for a cardioembolic source in the setting of ongoing dysphagia for ~2 months time. She remains hemodynamically stable. 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 -- Likely from cardioembolic source based on MRI - Clinically, patient p/w 2-day course of balance difficulty --> left arm numbness/weakness - Very likely cardioembolic, however specific DDX includes: ingestion failure 2/2 ongoing dysphagia, Xarelto failure, compliance issue, aortic plaque rupture - Work-up significant for following - Atrial fibrillation with RVR upon arrival - CT-H: No acute findings - CTA-Head/Neck: No occlusion; no carotid stenosis, long segment narrowing of distal RVA - MRI Brain: Numerous scattered acute infarcts within b/l cerebrum and watershed areas, L caudate, and cerebellar hemispheres -- likely from cardioembolic source. T2 hyperintense lesion of R parotid (1.8cm) - TTE ordered: Hyperdynamic LV. LVEF >70%. Moderate LVH. Moderate TR. - CT-A Chest w/ Contrast did not show aortic plaque rupture - PT/OT/BUSINESS DEVELOPMENT CONSULTANT ordered - Consulted neurology, cardiology -Neuro recommending changing to weight-based Lovenox given likely new cancer diagnosis -We will continue heparin for now in light of possible procedures with new liver findings - Scheduled neuro checks Hepatic Metastatic Disease -Finding on chest CTA of extensive/diffuse multifocal hepatic metastatic disease -Also had finding of a cluster of nodules in both lungs -No known history of cancer -Abdominal CT today showing no clear findings of colonic lesions, though the study did have technical limitations -We will have EGD on Thursday, which will help clarify if esophageal cancer is a possibility -If no clear findings on EGD, may need liver biopsy Atrial Fibrillation with RVR -- Asymptomatic at present - Hold home metoprolol for now -- given significant dysphagia, unsure if she's getting these down --> ?resulting RVR - Lopressor 5mg IV q6h CAMERON right now -- can consider +5mg IV q4h as needed for HRs > 110 - Consult cardiology, appreciate insight and recommendations - Hold home Xarelto for now Elevated Troponin -- Asymptomatic - Troponin elevated at 0.522 on admission --> 0.601 --> 0.679 - Suspect secondary to stress reaction, however, will trend troponin - Consult cardiology -Likely demand ischemia Leukocytosis -- appreciated on admission, no symptoms of infectio - Suspect secondary to stress response, likely acute CVA, and recent COVID vaccine - Work-up largely negative: - UA w/ no sign of infection - CXR: interstital thickening, no consolidations or acute processes - COVID negative 09/06/20 - CBC qAM while here Elevated LFTs, Mild - AST slightly elevated at 53, ALT 49, and alk phos slightly elevated at 166 - CK ordered and pending - INR noted to be low - Trend HFP and INR in AM Dysphagia - Complaint of dysphagia for 2+ months; no dysphagia w/ liquids - Associated unintentional weight loss of > 10 lbs. in 1 month - Recommend that this c/o dysphagia be addressed once stroke workup is further assessed - Consider upper GI study vs. EGD - Consult GI, appreciate insight and recommendations: - DDX: Neuromuscular dysphagia, esophageal web vs. stricture vs. mass - Consider outpatient EGD if video swallow study is normal - BUSINESS DEVELOPMENT CONSULTANT consulted -- proceed with video swallow study History of Iron Deficiency Anemia - Current anemia with Hgb 9-11; no recent Hgb in our system or from PCP records for comparison - Per PCP records, in 12/2015, Hgb 14.1, ferritin 15.6, and iron 130 (improved from 07/2015 when Hgb 10.1, ferritin 7.9, and iron 67) - Transfuse if Hgb < 7 - Continue home iron Hyperlipidemia - Continue home atorvastatin - Will get fasting lipid profile tomorrow AM as part of stroke workup Hypertension - Allow for permissive HTN - Continue home chlorthalidone, lisinopril 40mg po qPM FENGI: NPO DVT Ppx: Hep gtt Dispo: Tele Code status: DNR/DNI (2) Atrial fibrillation with rapid ventricular response: (3) Elevated troponin: (4) Dysphagia: (5) Hyperlipidemia: (6) Unintentional weight loss: (7) Anticoagulated by anticoagulation treatment: (8) Anxiety: (9) Hypertension: (10) Iron deficiency anemia: (11) Leukocytosis: Admission and Anticipated Discharge Date Admission Date: September 07, 2020 Supervising Physician Co-Signing Physician Notes I personally examined the patient and verified all luis points of history and exam, discussed case, and agree with decision making with Dr Degroot. Feeling about the same, left hand about the same. Did well enough with PT that she will need to go to rehab. Extensive discussions in regards to CT, malignancy, and further work-up. Answered all questions to the best my ability and to their satisfaction. Discussed with patient, at the bedside, [id number] at the bedside, son over the phone. Vitals noted, in general she is awake and alert pleasant no distress. HEENT normocephalic atraumatic mucous membranes moist. Breathing unlabored no accessory muscle use good effort. Skin shows no rashes no pallor or icterus. Embolic CVAscentral embolic source seems most likely given by hemispheric multiple strokes. Appears to be in A. fib related, Xarelto failure either just due to short half-life, or more likely because of significant hypercoagulability related to malignancy. Heparin drip for now, anticipate transition to Lovenox DysphagiaI strongly suspect some degree of distal esophageal pathologyhopefully just a strictureGI is doing an EGD on Thursday. This may also shed light on her malignancy picture Metastatic malignancy pictureextensive discussions with patient and family, next step will be EGD, if it appears malignant, then esophageal cancer could certainly fit the picture, if not then would want to move quickly to a liver biopsy of one of the metastatic lesions. Outpatient oncology follow-up. A. fibrate control, anticoagulation with heparin drip for now, anticipate transition to Lovenox DispositionPT OT eval and treat, fortunately it sounds like she will be able to go home with outpatient PT. Time in on longest individual visit approximately 6 PM, time out 6:40 PM, also made 2 other visits probably of 5 and 15 minutes earlier in the day, well over 30 minutes [id number]. Subjective Patient feeling well today. Expresses that she only has slight numbness and weakness at the left hand, which she has been able to work out by concentrating a lot and has actually been able to move her hand more. Had significant bedside discussion with her and her regarding liver findings on chest CT. Review of Systems Review of Systems: All systems reviewed & are unremarkable except as noted in Subjective Physical Exam Constitutional: Well-developed, well-nourished. No acute distress. Respiratory: Good respiratory effort with symmetric expansion of the chest. Lungs are clear to auscultation bilaterally without crackles or wheezes. Cardiovascular: Normal rate, irregular rhythm. S1 and S2 are present without murmurs rubs or gallops. Gastrointestinal (Abdomen): Normal active bowel sounds. Abdomen is soft, nontender, nondistended. Neurologic: Patient is alert and oriented x3. Cranial nerves II through XII grossly intact Right upper extremity strength 5 out of 5, left upper extremity strength 5 out of 5 above elbow, left hand significantly weaker about 1 out of 5, able to move fingers very slightly. Psychiatric: A+Ox3, euthymic affect Results & Data Results & Data ([facility]) Vital Signs (Past 12 Hours) Vital Signs Temp Pulse Pulse Resp BP BP Pulse Ox 09/08/20 06:19 110 H 118/71 09/08/20 04:09 36.8 C 116 H 20 118/71 94 09/08/20 00:30 110 H 123/76 09/08/20 00:21 36.8 C 110 H 16 123/76 95 09/08/20 00:00 104 H Resident Activity Tracking Resident Involvement: Resident Care Provided Care Provided: Adult Hospital Medicine
[2020-09-08] MEDS: MULTIVITAMIN TAB PO SCH (08:12)
[2020-09-08] MEDS: FERROUS SULFATE 325 MG TAB PO SCH (08:12)
[2020-09-08] MEDS: CHOLECALCIFEROL 1,000 UNITS 25 MCG TAB PO SCH (08:12)
[2020-09-08] MEDS: ASCORBIC ACID 500 MG TAB PO SCH (08:13)
[2020-09-08] MEDS: CHLORTHALIDONE 25 MG TAB PO SCH (08:14)
--- NOTE | 2020-09-08 09:40 | Neurology Progress Note ---
Date of Service September 08, 2020 Assessment & Plan (1) Stroke: Rosie De Guzman is an 85 yo woman w/ PMH of HTN, HLD, Afib on xarelto, iron deficiency anemia, anxiety and vitamin D deficiency who p/t [facility] with acute onset of LUE weakness. Symptom localization: multifocal/bilateral cerebral hemispheres Stroke mechanism: cardioembolic vs hypercoagulability given likely new diagnosis of malignancy Stroke WorkUp: - CT head: no hemorrhage, old stroke in the left cerebellum, no other loss of singh-white differentiation to suggest new hypodensity - CTA head/neck: notable for hypoplastic right vertebral artery that terminates in the right PICA, left IC [employer], no LVO, high-grade stenosis or aneurysm noted - MRI brain: notable for multiple punctate acute and subacute infarcts in watershed distribution in bilateral cerebral hemispheres including bilateral cerebellum and left caudate head, moderate SVID with chronic strokes in the left cerebellum, right centrum semiovale and bilateral ganglia - TTE: EF >70%, mild AR, moderate LVH, mild to moderate MR, moderate TR - Telemetry: Afib with RVR - A1c: 5.5 - FLP: 64 - Troponin: 0.601 -> 0.679 - Malignancy workup pending Stroke Management: - Continuous cardiac monitoring - Vitals, Neurochecks, NIHSS per unit routine - BP parameters: SBP CAP 180, restart home anti-hypertensives, IV Labetalol PRN - Consult speech, PT, OT for supportive management - Will general counselor concerning stroke education, smoking cessation, healthy diet, physical activity, weight loss - Follow up with PCP for assistance with outpatient goals (BP <130/80, LDL <70, A1c <7) - Follow up in neurology clinic in 6-8 weeks with JORDI Josue Secondary Stroke Prevention: - Antiplatelet: not indicated - Anticoagulation: change to weight based lovenox given likely new cancer diagnosis (if no cancer, would change to apixaban) - Statin: Atorvastatin 40mg daily HTN: - BP parameters, as above - Restart home medications with goal of lowering BP to normotension over next 3- 4 days FEN/GI: - Diet: NPO until cleared by Speech evaluation - Monitor lytes and replete PRN Glucose Control: - Sliding scale insulin and accuchecks per primary team to avoid hyperglycemia Thank you for this interesting consult. Plan of care was discussed with primary team. Please call with any questions. (2) Hypertension: (3) Anticoagulated by anticoagulation treatment: (4) Atrial fibrillation with rapid ventricular response: Admission and Anticipated Discharge Date Admission Date: September 07, 2020 Subjective NAEs overnight. Is on heparin gtt for small PEs noted in CTA chest. Reports that she is doing well, left arm is a little better, mainly weakness in her wrist/hand now. CTA chest was notable for multiple small distal PEs, metastatic disease to the liver/liver mets, multiple small pulmonary nodules throughout the lungs c/f infectious vs inflammatory vs neoplastic process, cardiomegaly, and large hiatal hernia. Barium swallow showed large hiatal hernia, esophageal stricture and moderate esophageal dysmotility. Review of Systems Review of Systems: 14 point review of systems completed and negative except as in HPI. Results & Data ([facility]) Vital Signs (Past 12 Hours) Vital Signs Temp Pulse Pulse Resp BP BP Pulse Ox 09/08/20 08:09 36.8 C 120 H 16 143/78 H 97 09/08/20 06:19 110 H 118/71 09/08/20 04:09 36.8 C 116 H 20 118/71 94 09/08/20 00:30 110 H 123/76 09/08/20 00:21 36.8 C 110 H 16 123/76 95 09/08/20 00:00 104 H Exam (Neuro) Physical Exam: General Exam: GEN: NAD, lying down in examination bed. HEENT: No conjunctival injection, no rhinorrhea. CV: RRR on monitor, no significant edema. PULM: Nonlabored respirations on room air. Neuro Exam: MS: Awake and Alert. Oriented to person, place, and date. Speech fluent and appropriate without dysarthria or paraphasic errors. Language intact including naming, comprehension, repetition. Cognition and memory mildly impaired Attention intact. No neglect. CN: Visual chaudhari full, + blink to threat bilaterally. No extinction to double simultaneous stimuli. Unable to visualize fundi on fundoscopic exam. PERRLA OU. EOMI without nystagmus. Facial sensation intact to LT. Facial muscles full and symmetric. Hearing intact to finger rub bilaterally. Uvula midline with symmetric palatal elevation. Shoulder shrug normal. Tongue midline. MOTOR: Normal bulk and tone. Slight pronator drift in LUE. RUE strength 5/5 at deltoids, biceps, triceps, wrist flexors and extensors, and finger flexors. LUE strength 4/5 at deltoids, 5-/5 biceps, 5-/5 triceps, 5/5 wrist flexors and extensors, and finger flexors. BLE strength 5/5 at iliopsoas, hamstrings, quadriceps, tibialis anterior, and gastrocnemius bilaterally. REFLEXES: 1+ at biceps, triceps, brachioradialis, 1+ patella, and absent Achilles bilaterally. Flexor plantar responses bilaterally. SENSORY: Intact to LT/vibration throughout, no extinction to double simultaneous stimuli. COORDINATION: No dysmetria or ataxia on [id number] bilaterally. Normal Marco bilaterally. GAIT: Deferred due to physical status. NIH STROKE SCALE 1A. Level of Consciousness (0-3) = 0 1B. LOC Questions (0-2) = 0 1C. LOC Commands (0-2) = 0 2. Best Horizontal Gaze (0-2) = 0 3. Visual Chaudhari (0-3) = 0 4. Facial Palsy (0-3) = 0 5. Motor Arm Right (0-4) = 0 Left (0-4) = 1 6. Motor Leg Right (0-4) = 0 Left (0-4) = 0 7. Limb Ataxia (0-2) = 1 8. Sensory (0-2) = 0 9. Best Language (0-3) = 0 10. Dysarthria (0-2) = 0 11. Extinction and Inattention (0-2) = 0 NIHSS TOTAL = 2 PG Care Time/CCT Total # of Minutes Spent Total Time Spent with Patient: Total time spent is greater than 50% in coordination of care (as documented) at patient's floor/unit and/or counseling patient: Coding Level of Care Code 51469 Subseq Hosp Care Lvl 3 Diagnoses Stroke I63.9 Hypertension I10 Anticoagulated by anticoagulation treatment Z79.01 Atrial fibrillation with rapid ventricular response I48.91
[2020-09-08] MEDS: METOPROLOL TARTRATE 1 MG/ML VIAL IV PRN (11:32)
[2020-09-08] MEDS ORDERED: OPTIRAY 320 100ml IV ONE (16:51)
--- NOTE | 2020-09-08 17:06 | CT Scan Report ---
CT abd pelvis oral and IV con CLINICAL HISTORY: Abnormal chest CT. Suspected hepatic metastasis. Evaluate for abdominal primary. COMPARISON STUDY: CT scan of chest dated 09/07/2020 TECHNIQUE: Patient was scanned following administration of dilute oral contrast, and in a dynamic hel ical fashion during intravenous administration of 94 cc of Optiray 320 A dose lowering technique was utilized adhering to the principles of ALARA. CT DOSE: 295.78 mGy.cm FINDINGS: Lower chest: There is a moderate hiatal hernia. There are small bilateral pleural effusions left grea ter than right. There are left basilar atelectatic changes. Liver: There are innumerable space occupying hepatic masses viewed as highly suspicious for extensive hepatic metastatic disease. The liver has a nodular serosal surface, consistent with cirrhosis or ps eudocirrhosis. Gallbladder: Punctate gallstone versus artifact. Spleen: Normal in size and attenuation. Pancreas: Unremarkable. Adrenal glands: Unremarkable. Kidneys: There is a to small to characterize 6 mm left renal hypodense lesions statistically represen ting a cyst. There is no hydronephrosis. Bowel: Evaluation of bowel is limited due to beam hardening artifact from barium secondary to a bariu m swallow performed the day prior. There are no transition zones indicate bowel obstruction. There is no evidence of acute diverticulitis. No colonic lesions are visualized given the technical limitatio ns of the study. Peritoneum: There is no intraperitoneal free air or abdominal ascites. Vasculature: The abdominal aorta is normal in course and caliber. Adenopathy: None. Pelvic viscera: There is a 34 mm right adnexal cystic lesion likely ovarian Skeletal structures: No destructive osseous lesions are seen. IMPRESSION: 1. Technically limited study secondary to artifact induced by barium within the colon. The patient bundy d a barium swallow performed the prior day 2. Innumerable space occupying masses viewed as highly suspicious for metastatic disease 3. Small bilateral pleural effusions left greater than right 4. Hiatal hernia 5. No evidence of bowel obstruction. No evidence of free air 6. 34 mm right adnexal cystic lesion likely ovarian ACT 112: Negative or not required by law. Electronically signed by: Juan Domínguez M.D. 09/08/2020 5:05 PM
--- NOTE | 2020-09-08 18:45 | Billing Data ---
Date of Service September 07, 2020 Coding Level of Care Code 91174 Prolonged Care (int'l)
--- NOTE | 2020-09-08 18:49 | Billing Data ---
Date of Service September 08, 2020 Coding Level of Care Code 93404 Prolonged Care (int'l)
--- NOTE | 2020-09-08 18:49 | Billing Data ---
Date of Service September 08, 2020 Coding Level of Care Code 95303 Subseq Hosp Care Lvl 3
[2020-09-08] MEDS: lisinopril 40 MG TAB PO SCH (20:37)
[2020-09-08] MEDS: ATORVASTATIN 40 MG TAB PO SCH (20:37)
[2020-09-09 05:50] LABS: Basophils # (auto) 0.02 K/uL (0-0.2); Basophils % (auto) 0.2 %; Eosinophils # (auto) 0.36 K/uL (0-0.5); Immature Granulocytes # (auto) 0.03 K/uL (0.00-0.02); Immature Granulocytes % (auto) 0.2 %; Lymphocytes # (auto) 1.29 K/uL (1.2-3.4); Lymphocytes % (auto) 10.7 %; Mean Corpuscular Hemoglobin 30.4 pg (25-34); Mean Corpuscular Hgb Conc 33.3 g/dL (32-36); Mean Corpuscular Volume 91.2 fL (80-100); Mean Platelet Volume 9.6 fL (7.4-10.4); Monocytes # (auto) 0.86 K/uL (0.11-0.59); Monocytes % (auto) 7.1 %; Neutrophils # (auto) 9.49 K/uL (1.4-6.5); Neutrophils % (auto) 78.8 %; Platelet Count 223 K/uL (130-400); RDW Standard Deviation 50.2 fL (36.4-46.3); Red Blood Count 2.96 M/uL (4.2-5.4); White Blood Count 12.05 K/uL (4.8-10.8)
[2020-09-09] MEDS: METOPROLOL TARTRATE 1 MG/ML VIAL IV SCH ×3 (05:54→17:53)
[2020-09-09 06:12] LABS: BUN Creatinine Ratio 12.1 (10-20); Calcium 8.3 mg/dl (8.5-10.1); Creatinine Clr Calc Pharmacy 56.5 ml/min; Est GFR (Non-African American) 81.9; Partial Thromboplastin Ratio 1.7; Partial Thromboplastin Time 44.1 Seconds (21.0-31.0); Potassium 3.1 mmol/L (3.5-5.1)
[2020-09-09] MEDS: CHLORTHALIDONE 25 MG TAB PO SCH (07:29)
[2020-09-09] MEDS: ASCORBIC ACID 500 MG TAB PO SCH (07:30)
[2020-09-09] MEDS: MULTIVITAMIN TAB PO SCH (07:30)
[2020-09-09] MEDS: FERROUS SULFATE 325 MG TAB PO SCH (07:30)
[2020-09-09] MEDS: CHOLECALCIFEROL 1,000 UNITS 25 MCG TAB PO SCH (07:31)
[2020-09-09] MEDS ORDERED: POTASSIUM CHLORIDE CRTAB 20 MEQ TABCR PO STA (07:37)
--- NOTE | 2020-09-09 08:03 | Hospitalist Progress Note ---
Date of Service September 09, 2020 Assessment & Plan (1) Acute CVA (cerebrovascular accident): Rosie De Guzman is an 85 y/o female with a PMHx of atrial fibrillation, h/o PE in 2011, MVP, anxiety, HTN, HLD, hyperlipidemia, hypothyroidism, iron deficiency anemia who was admitted 09/06/20 for new-onset LUE weakness, subsequently found to have evidence of numerous acute infarcts in the cerebrum, L caudate nucleus, and cerebellar hemispheres, concerning for a cardioembolic source in the setting of ongoing dysphagia for ~2 months time. She remains hemodynamically stable. 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 -- Likely from cardioembolic source based on MRI - Clinically, patient p/w 2-day course of balance difficulty --> left arm numbness/weakness - Very likely cardioembolic, however specific DDX includes: ingestion failure 2/2 ongoing dysphagia, Xarelto failure, compliance issue, aortic plaque rupture - Work-up significant for following - Atrial fibrillation with RVR upon arrival - CT-H: No acute findings - CTA-Head/Neck: No occlusion; no carotid stenosis, long segment narrowing of distal RVA - MRI Brain: Numerous scattered acute infarcts within b/l cerebrum and watershed areas, L caudate, and cerebellar hemispheres -- likely from cardioembolic source. T2 hyperintense lesion of R parotid (1.8cm) - TTE ordered: Hyperdynamic LV. LVEF >70%. Moderate LVH. Moderate TR. - CT-A Chest w/ Contrast did not show aortic plaque rupture - PT/OT/AUTOMATIC SPINNING LATHE SETTER ordered - Consulted neurology, cardiology -Neuro recommending changing to weight-based Lovenox given likely new cancer diagnosis -We will continue heparin for now in light of possible procedures with new liver findings - Scheduled neuro checks Hepatic Metastatic Disease -Finding on chest CTA of extensive/diffuse multifocal hepatic metastatic disease -Also had finding of a cluster of nodules in both lungs -No known history of cancer -Abdominal CT today showing no clear findings of colonic lesions, though the study did have technical limitations -We will have EGD on Thursday, which will help clarify if esophageal cancer is a possibility -If no clear findings on EGD, may need liver biopsy Atrial Fibrillation with RVR -- Asymptomatic at present - Hold home metoprolol for now -- given significant dysphagia, unsure if she's getting these down --> ?resulting RVR - Lopressor 5mg IV q6h CAMERON right now -- can consider +5mg IV q4h as needed for HRs > 110 - Consult cardiology, appreciate insight and recommendations - Hold home Xarelto for now Elevated Troponin -- Asymptomatic - Troponin elevated at 0.522 on admission --> 0.601 --> 0.679 - Suspect secondary to stress reaction, however, will trend troponin - Consult cardiology -Likely demand ischemia Leukocytosis -- appreciated on admission, no symptoms of infectio - Suspect secondary to stress response, likely acute CVA, and recent COVID vaccine - Work-up largely negative: - UA w/ no sign of infection - CXR: interstital thickening, no consolidations or acute processes - COVID negative 09/06/20 - CBC qAM while here Elevated LFTs, Mild - AST slightly elevated at 53, ALT 49, and alk phos slightly elevated at 166 - CK ordered and pending - INR noted to be low - Trend HFP and INR in AM Dysphagia - Complaint of dysphagia for 2+ months; no dysphagia w/ liquids - Associated unintentional weight loss of > 10 lbs. in 1 month - Recommend that this c/o dysphagia be addressed once stroke workup is further assessed - Consider upper GI study vs. EGD - Consult GI, appreciate insight and recommendations: - DDX: Neuromuscular dysphagia, esophageal web vs. stricture vs. mass - Consider outpatient EGD if video swallow study is normal - AUTOMATIC SPINNING LATHE SETTER consulted -- proceed with video swallow study History of Iron Deficiency Anemia - Current anemia with Hgb 9-11; no recent Hgb in our system or from PCP records for comparison - Per PCP records, in 12/2015, Hgb 14.1, ferritin 15.6, and iron 130 (improved from 07/2015 when Hgb 10.1, ferritin 7.9, and iron 67) - Transfuse if Hgb < 7 - Continue home iron Hyperlipidemia - Continue home atorvastatin - Will get fasting lipid profile tomorrow AM as part of stroke workup Hypertension - Allow for permissive HTN - Continue home chlorthalidone, lisinopril 40mg po qPM FENGI: NPO DVT Ppx: Hep gtt Dispo: Tele Code status: DNR/DNI (2) Atrial fibrillation with rapid ventricular response: (3) Elevated troponin: (4) Dysphagia: (5) Hyperlipidemia: (6) Unintentional weight loss: (7) Anticoagulated by anticoagulation treatment: (8) Anxiety: (9) Hypertension: (10) Iron deficiency anemia: (11) Leukocytosis: Admission and Anticipated Discharge Date Admission Date: September 07, 2020 Review of Systems Review of Systems: All systems reviewed & are unremarkable except as noted in Subjective Physical Exam Constitutional: Well-developed, well-nourished. No acute distress. Respiratory: Good respiratory effort with symmetric expansion of the chest. Lungs are clear to auscultation bilaterally without crackles or wheezes. Cardiovascular: Tachycardic, irregular rhythm. S1 and S2 are present without murmurs rubs or gallops. Gastrointestinal (Abdomen): Normal active bowel sounds. Abdomen is soft, nontender, nondistended. Neurologic: Patient is alert and oriented x3. Cranial nerves II through XII grossly intact Right upper extremity strength 5 out of 5, left upper extremity strength 5 out of 5 above elbow, left hand significantly weaker about 1 out of 5, able to move fingers very slightly. Psychiatric: A+Ox3, euthymic affect Results & Data Results & Data ([facility]) Vital Signs (Past 12 Hours) Vital Signs Temp Pulse Pulse Resp BP BP Pulse Ox 09/09/20 07:39 36.7 C 130 H 19 144/83 H 95 09/09/20 05:54 145 H 128/77 09/09/20 04:00 37.1 C 126 H 18 123/80 96 09/09/20 01:26 128 H 09/08/20 23:13 130 H 136/80 09/08/20 23:00 37.1 C 137 H 16 136/80 96 09/08/20 20:15 36.6 C 131 H 18 123/74 96
[2020-09-09] MEDS: dilTIAZem HCL 30 MG TAB PO SCH ×3 (09:20→20:31)
[2020-09-09 13:26] LABS: Partial Thromboplastin Ratio 1.8
--- NOTE | 2020-09-09 13:29 | Hospitalist Progress Note ---
Date of Service September 09, 2020 Assessment & Plan (1) Acute CVA (cerebrovascular accident): Rosie De Guzman is an 85 y/o female with a PMHx of atrial fibrillation, h/o PE in 2011, MVP, anxiety, HTN, HLD, hyperlipidemia, hypothyroidism, iron deficiency anemia who was admitted 09/06/20 for new-onset LUE weakness, subsequently found to have evidence of numerous acute infarcts in the cerebrum, L caudate nucleus, and cerebellar hemispheres, concerning for a cardioembolic source in the setting of ongoing dysphagia for ~2 months time. She remains hemodynamically stable. 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 -- Likely from cardioembolic source based on MRI - Clinically, patient p/w 2-day course of balance difficulty --> left arm numbness/weakness - Very likely cardioembolic, however specific DDX includes: ingestion failure 2/2 ongoing dysphagia, Xarelto failure, compliance issue, aortic plaque rupture - Work-up significant for following - Atrial fibrillation with RVR upon arrival - CT-H: No acute findings - CTA-Head/Neck: No occlusion; no carotid stenosis, long segment narrowing of distal RVA - MRI Brain: Numerous scattered acute infarcts within b/l cerebrum and watershed areas, L caudate, and cerebellar hemispheres -- likely from cardioembolic source. T2 hyperintense lesion of R parotid (1.8cm) - TTE ordered: Hyperdynamic LV. LVEF >70%. Moderate LVH. Moderate TR. - CT-A Chest w/ Contrast did not show aortic plaque rupture - PT/OT/DENTAL SECRETARY ordered - Consulted neurology, cardiology -Neuro recommending changing to weight-based Lovenox given likely new cancer diagnosis -We will continue heparin for now in light of possible procedures with new liver findings - Scheduled neuro checks Hepatic Metastatic Disease -Finding on chest CTA of extensive/diffuse multifocal hepatic metastatic disease -Also had finding of a cluster of nodules in both lungs -No known history of cancer -Abdominal CT today showing no clear findings of colonic lesions, though the study did have technical limitations -We will have EGD on Thursday, which will help clarify if esophageal cancer is a possibility -If no clear findings on EGD, may need liver biopsy Atrial Fibrillation with RVR -- Asymptomatic at present - Hold home metoprolol for now -- given significant dysphagia, want to make sure she gets necessary dose of beta krystian - Lopressor 5mg IV q6h CAMERON right now also has 5mg IV q4h as needed for HRs > 110 - Consult cardiology -the patient has missed several doses of her metoprolol succinate -would bridge her with intravenous metoprolol tartrate -continue metoprolol succinate at 150 mg daily - Started on diltiazem 30mg TID due to continued afib with RVR--heart rate now well-controlled - Hold home Xarelto for now -On heparin currently Dysphagia - Complaint of dysphagia for 2+ months; no dysphagia w/ liquids - Associated unintentional weight loss of > 10 lbs. in 1 month -Swallow study showing retention of contrast fluid in the esophagus -Diet transitioned to full liquids to avoid possibility of choking -We will have EGD done on 09/10 by GI Elevated Troponin -- Asymptomatic - Troponin elevated at 0.522 on admission --> 0.601 --> 0.679 - Suspect secondary to stress reaction, however, will trend troponin - Consult cardiology -Likely demand ischemia Leukocytosis -- appreciated on admission, no symptoms of infectio - Suspect secondary to stress response, likely acute CVA, and recent COVID vaccine - Work-up largely negative: - UA w/ no sign of infection - CXR: interstital thickening, no consolidations or acute processes - COVID negative 09/06/20 - CBC qAM while here Elevated LFTs, Mild -AST and alk phos remains slightly elevated, ALT back to normal - CK WNL -Continue to monitor History of Iron Deficiency Anemia - Current anemia with Hgb 9-11; no recent Hgb in our system or from PCP records for comparison - Per PCP records, in 12/2015, Hgb 14.1, ferritin 15.6, and iron 130 (improved from 07/2015 when Hgb 10.1, ferritin 7.9, and iron 67) - Transfuse if Hgb < 7 - Continue home iron Hyperlipidemia - Continue home atorvastatin - Will get fasting lipid profile tomorrow AM as part of stroke workup Hypertension - Allow for permissive HTN - Continue home chlorthalidone, lisinopril 40mg po qPM FENGI: NPO DVT Ppx: Hep gtt Dispo: Tele Code status: DNR/DNI (2) Atrial fibrillation with rapid ventricular response: (3) Elevated troponin: (4) Dysphagia: (5) Hyperlipidemia: (6) Unintentional weight loss: (7) Anticoagulated by anticoagulation treatment: (8) Anxiety: (9) Hypertension: (10) Iron deficiency anemia: (11) Leukocytosis: Admission and Anticipated Discharge Date Admission Date: September 07, 2020 Supervising Physician Co-Signing Physician Notes I personally examined the patient and verified all luis points of history and exam, discussed case, and agree with decision making with Dr Degroot. Feeling okay. No new complaints. We did discuss her tachycardia, but she does not really seem to be feeling it. Further as the day progressed her heart rates have improved. No other new complaints. Answered all questions to the best of my ability. Generally speaking no new issues today. Son notes a family history of hemochromatosis and other family members Vitals noted, in general she is awake and alert pleasant no distress. HEENT normocephalic atraumatic mucous membranes moist. Breathing unlabored no accessory muscle use good effort. Skin shows no rashes no pallor or icterus. Irregularly irregular tachycardia that improves as the day progresses Embolic CVAscentral embolic source seems most likely given by hemispheric multiple strokes. Appears to be in A. fib related, Xarelto failure either just due to short half-life, or more likely because of significant hypercoagulability related to malignancy. Heparin drip for now, anticipate transition to Lovenox after all biopsies are done DysphagiaI strongly suspect some degree of distal esophageal pathologyhopefully just a strictureGI is doing an EGD tomorrow. This may also shed light on her malignancy picture Metastatic malignancy picturesince she requires an EGD as it relates to her dysphagia, we will follow for those resultsif it yields an esophageal cancer, that may explain the whole picture, no further work-up might be needed in order to get a tissue diagnosis. That said, if it is not clear from EGD, then we would want to move quickly to a biopsy of the liver lesion to obtain tissue diagnosis A. fibrate control (rates have been more poor the last day or 2, I suspect largely from stress. At the same time given her dysphagia in order to reduce pill burden, we have been giving her metoprolol IV, and while it is likely an adequate dose normally, I suspect this plus her stress of everything she is going through is leading to more tachycardiahence the addition of some short acting diltiazem today which has affected improvement), anticoagulation with heparin drip for now, anticipate transition to Lovenox once biopsy/procedures are done DispositionPT OT eval and treat, fortunately it appears that she will be able to go home with outpatient PT, after her dysphagia has been improved, and after a tissue diagnosis has been obtained as it relates to the malignancy Subjective Patient doing well overall this morning, reports that she is able to move her hand much more. She denies chest pain, palpitations. She reports that she knows she has been tachycardic but has had no symptoms related to it. She reports she had some difficulty with swallowing pills this morning, but ultimately was able to get them down, did not choke. Will have EGD tomorrow with gastroenterology. Review of Systems Review of Systems: All systems reviewed & are unremarkable except as noted in Subjective Physical Exam Constitutional: Well-developed, well-nourished. No acute distress. Respiratory: Good respiratory effort with symmetric expansion of the chest. Lungs are clear to auscultation bilaterally without crackles or wheezes. Cardiovascular: Normal rate, irregular rhythm. S1 and S2 are present without murmurs rubs or gallops. Gastrointestinal (Abdomen): Normal active bowel sounds. Abdomen is soft, nontender, nondistended. Neurologic: Patient is alert and oriented x3. Cranial nerves II through XII grossly intact Right upper extremity strength 5 out of 5, left upper extremity strength 5 out of 5 above elbow, left hand significantly weaker about 1 out of 5, able to move fingers very slightly. Psychiatric: A+Ox3, euthymic affect Results & Data Results & Data ([facility]) Vital Signs (Past 12 Hours) Vital Signs Temp Pulse Pulse Resp BP BP Pulse Ox 09/09/20 11:48 130 H 129/84 09/09/20 11:44 36.7 C 130 H 19 129/84 96 09/09/20 07:39 36.7 C 130 H 19 144/83 H 95 09/09/20 05:54 145 H 128/77 09/09/20 04:00 37.1 C 126 H 18 123/80 96 09/09/20 01:26 128 H Resident Activity Tracking Resident Involvement: Resident Care Provided Care Provided: Adult [facility]
[2020-09-09 13:30] LABS: Partial Thromboplastin Time 46.6 Seconds (21.0-31.0)
[2020-09-09] MEDS: HEPARIN SODIUM/DEXTROSE 25,000 UNITS/500 ML BAG IV SCH (14:23)
[2020-09-09] MEDS ORDERED: COUGH DROP (SUGAR FREE) LOZ 24 LOZ/1 BOX BUCCAL PRN (15:23)
[2020-09-09] MEDS ORDERED: Nursing to Pharmacy Communication SCH (15:45)
--- NOTE | 2020-09-09 16:43 | Billing Data ---
Date of Service September 09, 2020 Coding Level of Care Code 00877 Subseq Hosp Care Lvl 3
[2020-09-09] MEDS: lisinopril 40 MG TAB PO SCH (20:31)
[2020-09-09] MEDS: ATORVASTATIN 40 MG TAB PO SCH (20:32)
[2020-09-10] MEDS: METOPROLOL TARTRATE 1 MG/ML VIAL IV SCH ×3 (00:11→09:50)
[2020-09-10 06:35] LABS: Basophils # (auto) 0.03 K/uL (0-0.2); Basophils % (auto) 0.2 %; Eosinophils % (auto) 2.4 %; Hematocrit (blood only) 26.9 % (37-47); Hemoglobin 9.1 g/dL (12.0-16.0); Immature Granulocytes # (auto) 0.03 K/uL (0.00-0.02); Immature Granulocytes % (auto) 0.2 %; Lymphocytes # (auto) 1.32 K/uL (1.2-3.4); Lymphocytes % (auto) 10.4 %; Mean Corpuscular Hgb Conc 33.8 g/dL (32-36); Mean Corpuscular Volume 91.5 fL (80-100); Mean Platelet Volume 9.9 fL (7.4-10.4); Monocytes # (auto) 0.82 K/uL (0.11-0.59); Monocytes % (auto) 6.4 %; Neutrophils # (auto) 10.22 K/uL (1.4-6.5); Neutrophils % (auto) 80.4 %; Platelet Count 206 K/uL (130-400); RDW Coefficient of Variation 15.1 % (11.5-14.5); RDW Standard Deviation 50.7 fL (36.4-46.3); Red Blood Count 2.94 M/uL (4.2-5.4); White Blood Count 12.72 K/uL (4.8-10.8)
[2020-09-10 06:55] LABS: Partial Thromboplastin Ratio 1.9
[2020-09-10 07:21] LABS: Albumin Globulin Ratio 0.6 (0.9-2); Albumin Level 2.2 gm/dl (3.4-5.0); BUN Creatinine Ratio 11.5 (10-20); Bilirubin,Total 1.2 mg/dl (0.2-1); Calcium 8.6 mg/dl (8.5-10.1); Creatinine Clr Calc Pharmacy 52.4 ml/min; Est GFR (African American) 92.6; Est GFR (Non-African American) 79.9; Potassium 3.7 mmol/L (3.5-5.1); Total Protein 6.2 gm/dl (6.4-8.2)
[2020-09-10] MEDS: dilTIAZem HCL 30 MG TAB PO SCH ×2 (08:00→15:21)
[2020-09-10] MEDS: ASCORBIC ACID 500 MG TAB PO SCH (08:01)
[2020-09-10] MEDS: FERROUS SULFATE 325 MG TAB PO SCH (08:01)
[2020-09-10] MEDS: CHOLECALCIFEROL 1,000 UNITS 25 MCG TAB PO SCH (08:01)
[2020-09-10] MEDS: CHLORTHALIDONE 25 MG TAB PO SCH (08:02)
[2020-09-10] MEDS: MULTIVITAMIN TAB PO SCH (08:03)
[2020-09-10] MEDS: HEPARIN SODIUM/DEXTROSE 25,000 UNITS/500 ML BAG IV SCH ×2 (09:49→19:15)
--- NOTE | 2020-09-10 09:52 | Cardiology Progress Note ---
Date of Service September 10, 2020 Assessment & Plan (1) Acute CVA (cerebrovascular accident): -suspect cardioembolic related to her atrial fibrillation. -her situation may represent a Xarelto failure versus a hypercoagulable state related to her malignancy. -currently on a heparin drip. -would consider a change to Eliquis 5 mg b.i.d. (2) Atrial fibrillation with rapid ventricular response: -would restart her oral metoprolol succinate. -intravenous metoprolol tartrate p.r.n.. -continue heparin drip. (3) Elevated troponin: -likely supply demand mismatch realizing her rapid ventricular response and moderate LVH at time of presentation. (4) Hypertension: -would restart metoprolol succinate. (5) Hyperlipidemia: -continue atorvastatin. Admission and Anticipated Discharge Date Admission Date: September 07, 2020 Subjective The patient is resting comfortably in the bedside chair without complaints of chest pain, dyspnea, or palpitations. Physical Exam Physical Exam: In general is well-developed well-nourished white female no acute distress. HEENT exam is negative. Neck is supple with full carotid upstrokes. No carotid bruits. Jugular is pressure is flat at 90. No thyromegaly. Cardiovascular exam reveals an irregular irregular rhythm with distant heart sounds. No obvious murmurs. Lungs are clear without rales, rhonchi or wheeze. Abdomen is soft without bruits. Extremities reveal intact radial artery pulses bilaterally. Left hand is contracted. There is no peripheral edema. Results & Data ([facility]) Vital Signs (Past 12 Hours) Vital Signs Temp Pulse Pulse Resp BP BP Pulse Ox 09/10/20 07:11 36.6 C 137 H 18 146/88 H 95 09/10/20 06:45 121 H 122/74 09/10/20 04:03 102 H 09/10/20 03:46 36.8 C 115 H 20 121/74 97 09/10/20 00:11 130 H 118/74 09/09/20 23:53 37.1 C 125 H 21 118/74 94 Diagnostic Findings radiation monitor notes atrial fibrillation with rapid ventricular response. PG Care Time/CCT Total # of Minutes Spent Total Time Spent with Patient: Total time spent is greater than 50% in coordination of care (as documented) at patient's floor/unit and/or counseling patient: Coding Level of Care Code 15524 Subseq Hosp Care Lvl 3 Diagnoses Acute CVA (cerebrovascular accident) I63.9 Atrial fibrillation with rapid ventricular response I48.91 Elevated troponin R77.8 Hypertension I10 Hyperlipidemia E78.5
[2020-09-10] MEDS: METOPROLOL TARTRATE 1 MG/ML VIAL IV PRN (09:55)
--- NOTE | 2020-09-10 10:23 | Gastroenterology Progress Note ---
Date of Service September 10, 2020 Assessment & Plan (1) Dysphagia: Barium swallow suggesting hold up of tablet at the [facility] concerning for stricture vs mass lesion -Keep NPO after midnight -EGD on 09/11/20 Thank you for allowing us to participate in the care of this patient. If you should have any further questions or concerns, do not hesitate to contact us at [email or web address] [phone] or [phone]. Admission and Anticipated Discharge Date Admission Date: September 07, 2020 Supervising Physician Co-Signing Physician Notes I personally evaluated the patient and agree with the findings as documented by Kami Mahajan, PAC Exam: abd: soft, nt, nd EGD tomorrow to further evaluate Subjective Patient is an 85 yo female GI is following for dysphagia. A barium swallow indicated a moderate to large sliding hiatal hernia with an intrathoracic stomach. There was also a hold up of the barium tablet to pass through the GEJ concerning for stricture vs mass lesion. The patient denies any new symptoms at present. She reports she is swallowing liquids without issue. She notes that meat has always been difficult to swallow. Review of Systems Constitutional: no fever and no chills Respiratory: no cough and no dyspnea Cardiovascular: no chest pain Gastrointestinal: + dysphagia; no abdominal pain Physical Exam Constitutional: no acute distress Respiratory: normal respiratory effort Cardiovascular: Extremities: no edema Gastrointestinal (Abdomen): Inspection/Auscultation: abdomen normal to inspection Musculoskeletal: Head/Neck/Chest: normocephalic Psychiatric: A+Ox3, euthymic affect Results & Data Results & Data ([facility]) Vital Signs (Past 12 Hours) Vital Signs Temp Pulse Pulse Resp BP BP Pulse Ox 09/10/20 09:55 142 H 114/81 09/10/20 07:11 36.6 C 137 H 18 146/88 H 95 09/10/20 06:45 121 H 122/74 09/10/20 04:03 102 H 09/10/20 03:46 36.8 C 115 H 20 121/74 97 09/10/20 00:11 130 H 118/74 09/09/20 23:53 37.1 C 125 H 21 118/74 94 PG Care Time/CCT Total # of Minutes Spent Total Time Spent with Patient: Total time spent is greater than 50% in coordination of care (as documented) at patient's floor/unit and/or counseling patient: Coding Level of Care Code 89615 Subseq Hosp Care Lvl 3 Diagnoses Dysphagia R13.10
--- NOTE | 2020-09-10 10:43 | Hospitalist Progress Note ---
Date of Service September 10, 2020 Assessment & Plan (1) Acute CVA (cerebrovascular accident): Rosie De Guzman is an 85 y/o female with a PMHx of atrial fibrillation, h/o PE in 2011, MVP, anxiety, HTN, HLD, hyperlipidemia, hypothyroidism, iron deficiency anemia who was admitted 09/06/20 for new-onset LUE weakness, subsequently found to have evidence of numerous acute infarcts in the cerebrum, L caudate nucleus, and cerebellar hemispheres, concerning for a cardioembolic source in the setting of ongoing dysphagia for ~[address]-A of the chest did incidentally demonstrate extensive hepatic lesions, concerning for metastatic disease. The primary source remains unclear at this time. She remains hemodynamically stable. 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 -- Likely from cardioembolic source based on MRI - Clinically, patient p/w 2-day course of balance difficulty --> left arm numbness/weakness - Cardioembolic-specific etiology DDX: hypercoagulability state from malignancy vs. Xarelto failure vs. ?possible ingestion failure from dysphagia - Work-up significant for following - Atrial fibrillation with RVR (continues) - CTA-Head/Neck: No occlusion; no carotid stenosis, long segment narrowing of distal RVA - MRI Brain: Numerous scattered acute infarcts within b/l cerebrum and watershed areas, L caudate, and cerebellar hemispheres -- likely from cardioembolic source. - TTE ordered: Hyperdynamic LV. LVEF >70%. Moderate LVH. Moderate TR. - CT-A Chest w/ Contrast did not show aortic plaque rupture (see below - hepatic disease) - Consulted neurology, cardiology - Transition to Lovenox once procedures (e.g., EGD, ?liver biopsy) done - Neuro follow-up in 6-8 weeks as outpatient - Continue heparin for now - Continue PT/OT/[facility] Hepatic Metastatic Disease -- incidental lesions found on chest imaging; strongly suspected to be malignant - Finding on chest CTA of extensive/diffuse suspected multifocal hepatic metastatic disease - Scan also revealed cluster of nodules in both lungs - Patient without history of cancer - Abdominal CT showing no clear findings of colonic lesions, though the study did have technical limitations - EGD on 09/11 -- r/o upper GI source, especially in setting of dysphagia - If EGD negative, consider liver biopsy Atrial Fibrillation with RVR -- RVR continues, asymptomatic - Lopressor 5mg IV q4h as needed for HRs > 110 - Cardiology following, appreciate insight and recommendations: - Resume home metoprolol 150mg PO qHS - Continue heparin drip - Consider restarting diltiazem 30mg TID if additional control needed - Hold home Xarelto for now; anticipate changing to dabigatran when appropriate - Heparin currently. Transition to Lovenox after procedures if still hospitalized Dysphagia -- Cause unclear; cannot exclude esophageal cancer given findings above - Complaint of dysphagia for 2+ months; no dysphagia w/ liquids - Associated unintentional weight loss of > 10 lbs. in 1 month - Swallow study showing retention of contrast fluid in the esophagus - Diet transitioned to full liquids to avoid possibility of choking - EGD on 09/11 Elevated Troponin -- Asymptomatic, likely representing demand ischemia - Troponin elevation noted at admission, peak of 0.679 thereafter - Cardiology following: likely from supply/demand mismatch from RVR, LVH at presentation Leukocytosis -- ongoing, no symptoms of infection - Suspect secondary to stress response, likely acute CVA and recent COVID vaccine - Work-up largely negative: UA, CXR, COVID testing not significant for acute processes - CBC qAM while here Elevated LFTs, Mild - AST and ALP remains slightly elevated, ALT WNL - CK WNL - Continue to monitor History of Iron Deficiency Anemia -- noted back to 2011 - Current anemia with Hgb 9-11 on daily labs - Review of PCP records do show Hgb ranging from 9 - 14, with mixed microcytosis/normal MCVs - Per PCP records, in 12/2015, did demonstrate iron studies suspicious for POLLY - Last colonoscopy in 2007 demonstrating diverticulosis, none thereafter - Continue home iron while here Hyperlipidemia - Continue home atorvastatin Hypertension - Continue home chlorthalidone, lisinopril 40mg po qPM FENGI: Full liquid diet (given dysphagia at recommendation of [facility]) --> NPO at midnight DVT Ppx: Hep gtt Dispo: Tele Code status: DNR/DNI (2) Atrial fibrillation with rapid ventricular response: (3) Elevated troponin: (4) Dysphagia: (5) Hyperlipidemia: (6) Unintentional weight loss: (7) Anticoagulated by anticoagulation treatment: (8) Anxiety: (9) Hypertension: (10) Iron deficiency anemia: (11) Leukocytosis: Admission and Anticipated Discharge Date Admission Date: September 07, 2020 Supervising Physician Co-Signing Physician Notes Resident Physician Supervision Note: I independently interviewed and examined the patient and verified the luis history and physical, reviewed labs and image studies, discussed the case with the resident Dr. Murillo and agree with the findings and care plan. Subjective Feeling well this AM overall. Says that she felt a little anxious this morning and noticed her heart was beating fast, but no CP/SOB. Resolved spontaneously thereafter. Believes her left hand is getting a little better - more movement from her perspective. Eager to have EGD done. No other concerns this AM. Review of Systems Review of Systems: as per HPI Physical Exam Constitutional: WD/WN, vitals as above Respiratory: normal respiratory effort, lungs clear to auscultation Cardiovascular: Tachycardic with irregular rhythm. S1 and S2 present without m/r/g. Gastrointestinal (Abdomen): normal bowel sounds, soft, nontender, no hepatosplenomegaly Neurologic: UE ROM/Strength - Left wrist movement still with increased latency and limited abilities to flex/extend. Unable to resist - strength objectively 2/5 at the left wrist. Marketing Analyst strength of left hand about 60% of that of the right. Rapid pronation/supination improving - not really dysdiadochokinesia given objective weakness. LUE strength 5/5 at all joints. LE Strength - 5/5 b/l at the hips, knees, ankles. UE/LE Sensation (light touch) - grossly in tact, including at the left hand. Able to differentiate soft touch at specific locations and eyes closed. LUE brachioradialis, biceps reflexes 3+. RUE 2+. Results & Data Results & Data ([facility]) Vital Signs (Past 12 Hours) Vital Signs Temp Pulse Pulse Resp BP BP Pulse Ox 09/10/20 09:55 142 H 114/81 09/10/20 07:11 36.6 C 137 H 18 146/88 H 95 09/10/20 06:45 121 H 122/74 09/10/20 04:03 102 H 09/10/20 03:46 36.8 C 115 H 20 121/74 97 09/10/20 00:11 130 H 118/74 09/09/20 23:53 37.1 C 125 H 21 118/74 94 Resident Activity Tracking Resident Involvement: Resident Care Provided Care Provided: Adult [facility]
[2020-09-10] MEDS: lisinopril 40 MG TAB PO SCH (20:20)
[2020-09-10] MEDS: ATORVASTATIN 40 MG TAB PO SCH (20:20)
[2020-09-10] MEDS: METOPROLOL SUCC 50MG EXT REL TAB PO SCH (20:20)
[2020-09-11 06:12] LABS: Partial Thromboplastin Ratio 1.9
[2020-09-11 06:22] LABS: Partial Thromboplastin Time 50.7 Seconds (21.0-31.0)
[2020-09-11] MEDS: SODIUM CHLORIDE 0.9% 1000ML 1,000 ML IV SCH ×2 (06:31→19:32)
--- NOTE | 2020-09-11 09:02 | Hospitalist Progress Note ---
Date of Service September 11, 2020 Assessment & Plan (1) Acute CVA (cerebrovascular accident): Rosie De Guzman is a very pleasant 85-year-old female with a notable past medical history of known atrial fibrillation, a history of a PE in 2011, MVP, anxiety, hypertension, hyperlipidemia, hypothyroidism, and iron deficiency anemia who was admitted on 09/06/2020 for new onset left upper extremity weakness, subsequently found to have evidence of numerous acute infarcts in the cerebrum, caudate nucleus, and cerebellar hemispheres, concerning for a cardioembolic source. At the time of admission, she also endorsed an approximately 2-month history of dysphagia and 10lb weight loss. While Xarelto failure was initially suspected to be the cause of her strokes, chest imaging obtained for further work-up incidentally revealed numerous hepatic lesions concerning for a newly identified metastatic disease process. The patient has no personal history of cancer. Imaging of the abdomen and pelvis was unrevealing for possible primary source. 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 This is suspected to be the primary source of her hepatic lesions. It is also suspected that her strokes were a result of hypercoagulability of malignancy, leading to anticoagulation failure and thromboembolism formation. She remains admitted for further work-up of these conditions. New Esophageal Mass and Hepatic Metastatic Disease - Incidental lesions found on chest imaging; strongly suspected to be malignant, likely from esophageal source based on EGD. No previous history of cancer. - Clinically, patient reported 2+ months of dysphagia with associated 10lb weight loss - Finding on chest and A/P CT demonstrating extensive/diffuse multifocal hepatic disease, strongly suspected to be malignant - Scan also revealed a cluster of nodules in both lungs - No colonic lesions identified - EGD on 09/11 significant for fungating esophageal mass at gastroesophageal junction, likely representing primary source - Await pathology - Oncology consulted for further insight, planning, and management 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 -- Likely from cardioembolic source based on MRI - Clinically, patient p/w 2-day course of balance difficulty --> left arm numbness/weakness - Suspected to have occurred due to hypercoagulability of suspected malignancy leading to anticoagulation failure - Work-up significant for following - Atrial fibrillation with RVR (continues) - CTA-Head/Neck: No occlusion; no carotid stenosis, long segment narrowing of distal RVA - MRI Brain: Numerous scattered acute infarcts within b/l cerebrum and watershed areas, L caudate, and cerebellar hemispheres -- likely from cardioembolic source. - TTE ordered: Hyperdynamic LV. LVEF >70%. Moderate LVH. Moderate TR. - CT-A Chest w/ Contrast did not show aortic plaque rupture (see above - hepatic disease) - Consulted neurology, cardiology - Transition to Lovenox once procedures (e.g., EGD, ?liver biopsy) done - Neuro follow-up in 6-8 weeks as outpatient - Continue heparin for now - Continue PT/OT/SPEECH WRITER Atrial Fibrillation with RVR -- RVR demonstrating improvement, asymptomatic - Cardiology following, appreciate insight and recommendations: - Resume home metoprolol 150mg PO qHS - Continue heparin drip - Hold home Xarelto for now; anticipate changing to dabigatran when appropriate - Heparin currently. Transition to Lovenox after procedures if still hospitalized - Lopressor 5mg IV q4h as needed for HRs > 110 Small, age indeterminant pulmonary emboli without acute cor pulmonale - Noted on CT scan - Anticoagulation as above Dysphagia -- due to esophageal mass with stricture (see above) - Complaint of dysphagia for 2+ months with solid foods - Swallow study showing retention of contrast fluid in the esophagus - EGD demonstrating fungating mass at GEJ -- as above - Diet transitioned to full liquids to avoid possibility of choking - SPEECH WRITER following, appreciate insight and recommendations Elevated Troponin -- Noted on admission, likely representing demand ischemia. Asymptomatic. - Troponin elevation noted at admission, peak of 0.679 thereafter - Cardiology following: likely from supply/demand mismatch from RVR, LVH at presentation Leukocytosis -- ongoing, no symptoms of infection - Suspect secondary to stress response, likely acute CVA and recent COVID vaccine , +/- ?malignant component - Work-up largely negative: UA, CXR, COVID testing not significant for acute processes Elevated LFTs, Mild -- in setting of newly discovered hepatic disease - AST and ALP remain slightly elevated, ALT WNL History of Iron Deficiency Anemia -- noted back to 2011 - Current anemia with Hgb 9-11 on daily labs - Review of PCP records do show Hgb ranging from 9 - 14, with mixed microcytosis/normal MCVs - Per PCP records, in 12/2015, did demonstrate iron studies suspicious for POLLY - Transfuse if Hgb < 7 - Continue home iron while here Hyperlipidemia - Continue home atorvastatin Hypertension - Continue home chlorthalidone, lisinopril 40mg po qPM FENGI: Full liquid diet (given dysphagia at recommendation of SPEECH WRITER) --> NPO at midnight DVT Ppx: Hep gtt Dispo: Tele Code status: DNR/DNI (2) Atrial fibrillation with rapid ventricular response: (3) Elevated troponin: (4) Dysphagia: (5) Hyperlipidemia: (6) Unintentional weight loss: (7) Anticoagulated by anticoagulation treatment: (8) Anxiety: (9) Hypertension: (10) Iron deficiency anemia: (11) Leukocytosis: Admission and Anticipated Discharge Date Admission Date: September 07, 2020 Supervising Physician Co-Signing Physician Notes Resident Physician Supervision Note: I independently interviewed and examined the patient and verified the luis history and physical, reviewed labs and image studies, discussed the case with the resident Dr. Murillo and agree with the findings and care plan. Subjective No acute events overnight. At the bedside this morning, patient reports feeling well. Telemetry did reveal that her heart rates nicely came down from above 120 into the 90-100 range last night, after restarting her home metoprolol 150. She even reports feeling that her heart is beating at a more normal rate. Denies any anxiety this morning. Says she is breathing normally. Also notes that she thinks that her left hand is regaining some more strength and movement. She is very excited by this. She is eager to have the EGD done today. All questions and concerns answered. Review of Systems Review of Systems: As per HPI Physical Exam Constitutional: Well-appearing 85-year-old female who is lying back in her hospital bed, smiling, upon my arrival. She is looking at the window and admiring her conteh. No acute distress. Respiratory: Good respiratory effort with symmetric expansion of the chest. Lungs are clear to auscultation bilaterally without crackles or wheezes. Cardiovascular: Normal rate, irregular rhythm. S1 and S2 are present without murmurs rubs or gallops. Gastrointestinal (Abdomen): normal bowel sounds, soft, nontender, no hepatosplenomegaly Neurologic: Strength and range of motion assessment of the left upper extremity does reveal 5 out of 5 strength at the elbow. At the wrist, there is slightly more movement with flexion and extension when compared to yesterday. Today, she is able to demonstrate resistance in regards to strength at the wristlikely a 4 out of 5 today. Business Process Modeler strength continues to be about 60 to 70% of that compared to the right. Brachioradialis and biceps reflexes 2+ bilaterally. Sensation to light touch grossly intact bilaterally. Results & Data Results & Data ([facility]) Vital Signs (Past 12 Hours) Vital Signs Temp Pulse Pulse Resp BP Pulse Ox 09/11/20 08:02 36.8 C 99 H 18 129/60 95 09/11/20 03:38 36.9 C 101 H 20 120/74 93 09/10/20 23:26 36.8 C 101 H 18 113/70 95 09/10/20 22:20 87 Resident Activity Tracking Resident Involvement: Resident Care Provided Care Provided: Adult Hospital Medicine
--- NOTE | 2020-09-11 09:09 | History & Physical Bridge Note ---
Date of Service September 11, 2020 History & Physical Bridge Note I have examined the patient, reviewed the History & Physical and in the interval since the performance of the History & Physical I have noted the following changes of clinical significance: no changes noted. Patient reports she was drinking water until 8 AM. No food intake. Discussed that this will delay the procedure until later in the day. Patient should be strictly NPO moving forward. Proceed with EGD later today for further evaluation of dysphagia and abnormal barium swallow.
--- NOTE | 2020-09-11 09:30 | Cardiology Progress Note ---
Date of Service September 11, 2020 Assessment & Plan (1) Acute CVA (cerebrovascular accident): -suspect cardioembolic related to her atrial fibrillation. -her case may represent a Xarelto failure versus an hypercoagulable state secondary to her malignancy. -currently on a heparin drip. -could consider a change to Eliquis 5 mg b.i.d. (2) Atrial fibrillation with rapid ventricular response: -better control on her usual dose of metoprolol succinate. -intravenous metoprolol tartrate p.r.n.. -continue heparin drip. (3) Elevated troponin: -likely supply demand mismatch realizing her rapid atrial fibrillation and moderate LVH. (4) Hypertension: -adequate control on current regimen.. (5) Hyperlipidemia: -continue atorvastatin. Admission and Anticipated Discharge Date Admission Date: September 07, 2020 Subjective The patient is resting comfortably in bed without complaints of chest pain, dyspnea, or palpitations. Physical Exam Physical Exam: In general is well-developed well-nourished white female no acute distress. HEENT exam is negative. Neck is supple with full carotid upstrokes. No carotid bruits. Jugular is pressure is flat at 90. No thyromegaly. Cardiovascular exam reveals an irregular irregular rhythm with distant heart sounds. No obvious murmurs. Lungs are clear without rales, rhonchi or wheeze. Abdomen is soft without bruits. Extremities reveal intact radial artery pulses bilaterally. There is no peripheral edema. Results & Data ([facility]) Vital Signs (Past 12 Hours) Vital Signs Temp Pulse Pulse Resp BP Pulse Ox 09/11/20 08:02 36.8 C 99 H 18 129/60 95 09/11/20 03:38 36.9 C 101 H 20 120/74 93 09/10/20 23:26 36.8 C 101 H 18 113/70 95 09/10/20 22:20 87 Diagnostic Findings food service director notes atrial fibrillation with ventricular response of 90-100 beats per minute. PG Care Time/CCT Total # of Minutes Spent Total Time Spent with Patient: Total time spent is greater than 50% in coordination of care (as documented) at patient's floor/unit and/or counseling patient: Coding Level of Care Code 37515 Subseq Hosp Care Lvl 3 Diagnoses Acute CVA (cerebrovascular accident) I63.9 Atrial fibrillation with rapid ventricular response I48.91 Elevated troponin R77.8 Hypertension I10 Hyperlipidemia E78.5
--- NOTE | 2020-09-11 11:17 | Anesthesiology Consultation ---
Date of Service September 11, 2020 Assessment & Plan (1) Encounter for pre-operative examination: Chart Review Chart Review: Acceptable Risk for Surgery and Patient NOT seen in Pre Admission Testing Consults Requested none ASA ASA4 Proposed Anesthesia Anesthesia Type: MAC Risk / Benefits Reviewed With: PT / POA / Parent / Guardian, Accepts Plan and Informed Consent Obtained History Surgery Operation Date: 09/11/20 16:00 Proposed Procedures p Esophagogastroduodenoscopy Dr. Mcconnell - Marc Mcconnell MD Height/Weight Height: 5 ft 4 in Weight: 64.6 kg Allergies Allergy/AdvReac Type Severity Reaction Status Date / Time No Known Allergies Allergy Verified 09/06/20 19:09 Medications Home Medications Medication Instructions Recorded Confirmed Last Taken atorvastatin 40 mg PO QPM 09/06/20 09/06/20 Unknown chlorthalidone 12.5 mg PO DAILY 09/06/20 09/06/20 Unknown cholecalciferol (vitamin D3) 50 mcg PO QAM 09/06/20 09/06/20 Unknown [Vitamin D3] iron,carbonyl-vitamin C [Vitron-C] 1 tab PO QAM 09/06/20 09/06/20 Unknown lisinopril 40 mg PO QPM 09/06/20 09/06/20 Unknown metoprolol succinate 150 mg PO QPM 09/06/20 09/06/20 Unknown multivitamin [One A Day Vitamin] 1 tab PO QAM 09/06/20 09/06/20 Unknown rivaroxaban [Xarelto] 20 mg PO QPM 09/06/20 09/06/20 Unknown Active Medications Generic Name Dose Route Start Last Admin Trade Name Freq PRN Reason Stop Dose Admin Ascorbic Acid 250 mg 09/07/20 09:00 09/10/20 08:01 Ascorbic Acid 500 Mg Tab PO 10/07/20 08:59 250 mg DAILY CAMERON Administration Atorvastatin Calcium 40 mg 09/07/20 21:00 09/10/20 20:20 Atorvastatin 40 Mg Tab PO 10/07/20 20:59 40 mg QPM CAMERON Administration Chlorthalidone 12.5 mg 09/07/20 09:00 09/10/20 08:02 Chlorthalidone 25 Mg Tab PO 10/07/20 08:59 12.5 mg DAILY CAMERON Administration Ferrous Sulfate 325 mg 09/07/20 09:00 09/10/20 08:01 Ferrous Sulfate 325 Mg Tab PO 10/07/20 08:59 325 mg QAM CAMERON Administration Heparin Sodium/Dextrose 25,000 units in 500 mls @ 17 mls/hr 09/07/20 02:00 09/11/20 07:09 Heparin Sodium/Dextrose IV 10/07/20 01:59 850 units/hr .Q24H CAMERON 17 mls/hr Titration Protocol 850 UNITS/HR Sodium Chloride 1,000 mls @ 80 mls/hr 09/11/20 06:30 09/11/20 06:31 Nss 1000ml IV 09/12/20 07:29 80 mls/hr .[id number] CAMERON Administration Lisinopril 40 mg 09/07/20 21:00 09/10/20 20:20 Lisinopril 40 Mg Tab PO 10/07/20 20:59 40 mg QPM ACMERON Administration Metoprolol Succinate 150 mg 09/10/20 21:00 09/10/20 20:20 Metoprolol Succ 50mg Ext Rel Tab PO 10/10/20 20:59 150 mg QPM CAMERON Administration Metoprolol Tartrate 5 mg 09/07/20 17:44 09/10/20 09:55 Metoprolol Tartrate 1 Mg/Ml Vial IV 10/07/20 19:59 5 mg Q4 PRN Administration tachycardia Multivitamins 1 tab 09/07/20 09:00 09/10/20 08:03 Multivitamin Tab PO 10/07/20 08:59 1 tab QAM CAMERON Administration Vitamin D 2,000 units 09/07/20 09:00 09/10/20 08:01 Cholecalciferol 1,000 Units 25 Mcg Tab PO 10/07/20 08:59 2,000 units QAM CAMERON Administration NPO Date Last Intake of Fluids: 09/11/20 Time Last Intake of Fluids: 07:00 Date Last Intake of Solids: 09/06/20 Past Medical History Medical History Anticoagulated by anticoagulation treatment Anxiety Chronic gastritis Colloid thyroid nodule Diverticulosis Dysphagia History of DVT (deep vein thrombosis) History of pulmonary embolism Hyperlipidemia Hypertension Iron deficiency anemia Mitral valve prolapse Unintentional weight loss Exercise / Class Metabolic Activity II 4-5 Yardwork/Stairs/Walk up hill Past Family History Family History Sister Dementia Diabetes Heart disease Macular degeneration Osteoporosis Son Asthma Mother Macular degeneration Past Surgical History Surgical History H/O breast biopsy History of esophagogastroduodenoscopy (EGD) Past Anesthesia History No Hx of Anesthesia Complications and No Family Hx of Anesthesia Complications History of PONV No Hx of PONV and No Hx of Motion Sickness Social History Smoking Status: Never smoker Hx Alcohol Use: Yes Alcohol type: wine alcohol intake frequency: a few times a month Hx Substance Use: No Physical Exam Vital Signs Last Vital Signs Temp 36.8 C 09/11/20 10:53 Pulse 119 H 09/11/20 10:53 Resp 18 09/11/20 10:53 BP 137/97 09/11/20 10:53 Pulse Ox 97 09/11/20 10:53 ENMT Mouth: no dentition abnormality Thyromental Distance: > or= 3.5 Finger Breadths Mallampati Class: II Neck normal visual inspection Respiratory normal respiratory effort Auscultation: lungs clear to auscultation bilaterally Cardiovascular Rate/Rhythm: regular rate and + irregularly irregular Neurologic mild left upper extremity weakness. Psychiatric Orientation: alert Testing Laboratory Results 09/10/20 06:19 09/10/20 06:19 PT 13.0 Seconds (9.0-12.0) H 09/07/20 08:40 INR 1.3 (0.9-1.1) H 09/07/20 08:40 APTT 50.7 Seconds (21.0-31.0) H* 09/11/20 05:28 Hemoglobin A1c 5.5 % (4.5-5.6) 09/07/20 08:40 Urine Color Dark Yellow 09/06/20 20:10 Urine Appearance Clear (Clear) 09/06/20 20:10 Urine pH 5.5 (4.5-7.5) 09/06/20 20:10 Ur Specific Jackson 1.041 (1.000-1.030) H 09/06/20 20:10 Urine Protein 1+ (Negative) H 09/06/20 20:10 Urine Glucose (UA) Negative (Negative) 09/06/20 20:10 Urine Ketones Trace (Negative) H 09/06/20 20:10 Urine Nitrite Negative (Negative) 09/06/20 20:10 Ur Leukocyte Esterase Negative (Negative) 09/06/20 20:10 Urine WBC (Auto) 1-5 /hpf (0-5) 09/06/20 20:10 Urine RBC (Auto) 0-4 /hpf (0-4) 09/06/20 20:10 U Hyaline Cast (Auto) 5-10 /lpf (0-5) H 09/06/20 20:10 U Epithel Cells (Auto) 20-30 /lpf (0-5) H 09/06/20 20:10 Urine Bacteria (Auto) Negative (Negative) 09/06/20 20:10 Blood Type A Positive 09/06/20 18:29 Antibody Screen NEGATIVE 09/06/20 18:29
[2020-09-11] MEDS ORDERED: LIDOCAINE HCL 2% 2 ML VIAL/AMP(20MG/ML) INFIL ONE (11:38)
[2020-09-11] MEDS ORDERED: METOPROLOL TARTRATE 1 MG/ML VIAL IV ONE (11:38)
[2020-09-11] MEDS ORDERED: PROPOFOL IV EMULSION 10 MG/ML 20 ML VIAL IV ONE (11:38)
--- NOTE | 2020-09-11 12:16 | GI REPORT ---
Patient Name: Rosie De Guzman Procedure Date: 09/11/2020 11:12 AM Date of : 1935 Admit Type: Inpatient Age: 85 Gender: Female Attending MD: Marc Mcconnell MD Procedure: Upper GI endoscopy Providers: Marc Mcconnell MD Referring MD: Ant Nieto Indications: Dysphagia Medicines: Monitored Anesthesia Care Complications: No immediate complications. Estimated blood loss: None. Estimated Blood Loss: Estimated blood loss: none. Procedure: Pre-Anesthesia Assessment: - Prior Anticoagulants: The patient has taken heparin, last dose was day of procedure. - ASA Grade Assessment: III - A patient with severe systemic disease. After obtaining informed consent, the endoscope was passed under direct vision. Throughout the procedure, the patient's blood pressure, pulse, and oxygen saturations were monitored continuously. The Endoscope was introduced through the mouth, and advanced to the second part of duodenum. The upper GI endoscopy was accomplished without difficulty. The patient tolerated the procedure well. Findings: A medium-sized, fungating mass with stigmata of recent bleeding was found at the gastroesophageal junction with an associated stricture at the area as well. The mass was likely malignant along with the stricture. Biopsies were taken with a cold forceps for histology. Estimated blood loss: none. A standard Q190 EGD scope was able to pass through the stricture The entire examined stomach was normal. The duodenal bulb and second portion of the duodenum were normal. A large hiatal hernia was present. 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 Biopsied. - Normal stomach. - Normal duodenal bulb and second portion of the duodenum. - Large hiatal hernia. Recommendation: - Return patient to [facility] for ongoing care. - Resume previous diet today. - Await pathology results. 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 Note Initiated On: 09/11/2020 11:12 AM Number of Addenda: 0 I attest to the content of the Intraoperative Record and orders documented therein, exceptions below {[id number]}
--- NOTE | 2020-09-11 14:09 | Anesthesiology Progress Note ---
Date of Service September 11, 2020 Anesthesia Post Procedure Vital Signs Vital Signs: Temp Pulse Pulse Resp BP Pulse Ox 09/11/20 12:14 111 H 20 93/56 L 95 09/11/20 12:06 36.7 C 88 18 118/76 96 09/11/20 12:02 106 H 20 93/52 L 95 09/11/20 11:59 100 H 20 121/73 95 09/11/20 11:50 100 H 20 105/56 L 95 09/11/20 11:44 107 H 20 78/45 L 95 09/11/20 10:53 36.8 C 119 H 18 137/97 97 09/11/20 10:23 99 H 09/11/20 08:02 36.8 C 99 H 18 129/60 95 09/11/20 03:38 36.9 C 101 H 20 120/74 93 09/10/20 23:26 36.8 C 101 H 18 113/70 95 09/10/20 22:20 87 09/10/20 19:51 37.1 C 117 H 19 137/83 95 09/10/20 15:12 36.8 C 116 H 18 124/73 95 Transfer of Care Handoff Completed per policy Notes Mental Status: alert / awake / arousable Patient Amnestic to Procedure: Yes Nausea / Vomiting: adequately controlled Pain: adequately controlled Airway Patency, RR, SpO2: stable & adequate BP & HR: stable & adequate Hydration State: stable & adequate Anesthetic Complications: no major complications apparent
[2020-09-11] MEDS: ASCORBIC ACID 500 MG TAB PO SCH (18:09)
[2020-09-11] MEDS: MULTIVITAMIN TAB PO SCH (18:10)
[2020-09-11] MEDS: FERROUS SULFATE 325 MG TAB PO SCH (18:10)
[2020-09-11] MEDS: CHLORTHALIDONE 25 MG TAB PO SCH (18:10)
[2020-09-11] MEDS: CHOLECALCIFEROL 1,000 UNITS 25 MCG TAB PO SCH (18:11)
[2020-09-11] MEDS: lisinopril 40 MG TAB PO SCH (19:37)
[2020-09-11] MEDS: ATORVASTATIN 40 MG TAB PO SCH (19:37)
[2020-09-11] MEDS: METOPROLOL SUCC 50MG EXT REL TAB PO SCH (19:37)
[2020-09-11] MEDS ORDERED: SODIUM CHLORIDE 0.9% 250 ML IV SCH (21:45)
[2020-09-11] MEDS ORDERED: METOPROLOL TARTRATE 1 MG/ML VIAL IV STA (21:54)
[2020-09-11] MEDS: METOPROLOL TARTRATE 1 MG/ML VIAL IV PRN (22:47)
[2020-09-12] MEDS: HEPARIN SODIUM/DEXTROSE 25,000 UNITS/500 ML BAG IV SCH (00:18)
[2020-09-12 07:36] LABS: Partial Thromboplastin Ratio 1.8
[2020-09-12 07:44] LABS: Partial Thromboplastin Time 48.1 Seconds (21.0-31.0)
--- NOTE | 2020-09-12 08:07 | Anesthesiology Progress Note ---
Date of Service September 12, 2020 Anesthesia Post Procedure Vital Signs Vital Signs: Temp Pulse Pulse Resp BP BP Pulse Ox 09/12/20 07:15 36.7 C 111 H 20 137/82 96 09/12/20 03:24 36.9 C 112 H 18 141/77 H 96 09/12/20 01:09 103 H 09/11/20 23:06 36.9 C 101 H 19 138/86 94 09/11/20 22:47 103 H 138/80 09/11/20 22:12 90 09/11/20 22:00 105 H 09/11/20 21:00 98 H 09/11/20 20:00 92 H 09/11/20 19:43 36.9 C 115 H 20 135/83 97 09/11/20 12:14 111 H 20 93/56 L 95 09/11/20 12:06 36.7 C 88 18 118/76 96 09/11/20 12:02 106 H 20 93/52 L 95 09/11/20 11:59 100 H 20 121/73 95 09/11/20 11:50 100 H 20 105/56 L 95 09/11/20 11:44 107 H 20 78/45 L 95 09/11/20 10:53 36.8 C 119 H 18 137/97 97 09/11/20 10:23 99 H Notes Mental Status: alert / awake / arousable and participated in evaluation Patient Amnestic to Procedure: Yes Nausea / Vomiting: adequately controlled Pain: adequately controlled Airway Patency, RR, SpO2: stable & adequate BP & HR: stable & adequate Hydration State: stable & adequate Anesthetic Complications: no major complications apparent
[2020-09-12] MEDS: FERROUS SULFATE 325 MG TAB PO SCH (08:18)
--- NOTE | 2020-09-12 09:30 | Hospitalist Progress Note ---
Date of Service September 12, 2020 Assessment & Plan (1) Acute CVA (cerebrovascular accident): Rosie De Guzman is a very pleasant 85-year-old female with a notable past medical history of known atrial fibrillation, a history of a PE in 2011, MVP, anxiety, hypertension, hyperlipidemia, hypothyroidism, and iron deficiency anemia who was admitted on 09/06/2020 for new onset left upper extremity weakness, subsequently found to have evidence of numerous acute infarcts in the cerebrum, caudate nucleus, and cerebellar hemispheres, concerning for a cardioembolic source. At the time of admission, she also endorsed an approximately 2-month history of dysphagia and 10lb weight loss. While Xarelto failure was initially suspected to be the cause of her strokes, chest imaging obtained for further work-up incidentally revealed numerous hepatic lesions concerning for a newly identified metastatic disease process. The patient has no personal history of cancer. Imaging of the abdomen and pelvis was unrevealing for possible primary source. 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 This is suspected to be the primary source of her hepatic lesions. While the biopsy did return benign tissue, it is still thought to be malignant at this time. Proceeding with liver biopsy. It is also suspected that her strokes were a result of hypercoagulability of malignancy, leading to anticoagulation failure and thromboembolism formation. She remains admitted for further work-up of these conditions. New Esophageal Mass and Hepatic Metastatic Disease - Incidental lesions found on chest imaging; strongly suspected to be malignant, likely from esophageal source based on EGD. - Clinically, patient reported 2+ months of dysphagia with associated 10lb weight loss. No cancer history. - Finding on chest and A/P CT demonstrating extensive/diffuse multifocal hepatic disease, strongly suspected to be malignant - Scan also revealed a cluster of nodules in both lungs - No colonic lesions identified - GI following, appreciate work-up and recommendations: - EGD on 09/11 significant for fungating esophageal mass at GEJ, possibly representing a primary source - Pathology: "The epithelium present appears benign. The biopsy does not explain the clinical history of a mass/stricture." - Malignancy still suspected at present - Attempting to proceed with liver biopsy while here for further characterization, planning - Oncology consulted for further insight, planning, and management - Patient interested in salvage chemotherapy - Recommend checking HER-2/shira status - Recommend MediPort placement - Recommend outpatient follow-up in 1-2 weeks' time - General Surgery consulted for MediPort placement - Anticipate placement 09/13 in AM - NPO + hold heparin at midnight 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 -- Likely from cardioembolic source based on MRI; motor deficits improving - Clinically, patient p/w 2-day course of balance difficulty --> left arm numbness/weakness - Suspected to have occurred due to hypercoagulability of suspected malignancy leading to anticoagulation failure, vs. Xarelto failure - Work-up significant for following - Atrial fibrillation with RVR (continues) - CTA-Head/Neck: No occlusion; no carotid stenosis, long segment narrowing of distal RVA - MRI Brain: Numerous scattered acute infarcts within b/l cerebrum and watershed areas, L caudate, and cerebellar hemispheres -- likely from cardioembolic source. - TTE ordered: Hyperdynamic LV. LVEF >70%. Moderate LVH. Moderate TR. - CT-A Chest w/ Contrast did not show aortic plaque rupture (see above - hepatic disease) - Consulted neurology, cardiology - Transition to Lovenox once procedures done if still here - Neuro follow-up in 6-8 weeks as outpatient - Continue Heparin for now - Continue PT/OT/[employer] Atrial Fibrillation with RVR -- RVR demonstrating improvement overall, asymptomatic - Cardiology following, appreciate insight and recommendations: - Resume home metoprolol 150mg PO qHS - Continue heparin drip - Continue Heparin for now - Xarelto --> Dabigatran or Eliquis upon discharge - Lopressor 5mg IV q4h as needed for HRs > 110 Small, age indeterminant pulmonary emboli without acute cor pulmonale - Noted on CTA-Chest - Anticoagulation as above Dysphagia -- due to esophageal mass with stricture (see above) - Complaint of dysphagia for 2+ months with solid foods - Swallow study showing retention of contrast fluid in the esophagus - EGD demonstrating fungating mass at GEJ -- as above - Diet transitioned to full liquids to avoid possibility of choking - [employer] following, appreciate insight and recommendations Elevated Troponin -- Noted on admission, likely representing demand ischemia. Asymptomatic. - Troponin elevation noted at admission, peak of 0.679 thereafter - Cardiology following: likely from supply/demand mismatch from RVR, LVH at presentation Leukocytosis -- ongoing, no symptoms of infection - Suspect secondary to stress response, likely acute CVA and recent COVID vaccine , +/- ?malignant component - Work-up largely negative: UA, CXR, COVID testing not significant for acute processes Elevated LFTs, Mild -- in setting of newly discovered hepatic disease - AST and ALP remain slightly elevated, ALT WNL History of Iron Deficiency Anemia -- noted back to 2011 - Current anemia with Hgb 9-11 on daily labs - Review of PCP records do show Hgb ranging from 9 - 14, with mixed microcytosis/normal MCVs - Per PCP records, in 12/2015, did demonstrate iron studies suspicious for POLLY - Continue home iron while here Hyperlipidemia - Continue home atorvastatin Hypertension - Continue home chlorthalidone, lisinopril 40mg po qPM Dispo: Anticipate patient being discharged home when appropriate. After discussions with family, if at all possible, would really like for patient to be discharged by night at absolute latest, because family is coming in from [place] to spend time with her given this recent hospital stay. We have discussed that this will and may depend on potential interventional procedures (i.e., port placement, ?liver bx). Will require outpatient PT, OT. FENGI: NPO at midnight.Full liquid diet (given dysphagia at recommendation of [employer]) DVT Ppx: Hep gtt (stop at midnight for procedure in AM) Code: DNR/DNI (2) Atrial fibrillation with rapid ventricular response: (3) Elevated troponin: (4) Dysphagia: (5) Hyperlipidemia: (6) Unintentional weight loss: (7) Anticoagulated by anticoagulation treatment: (8) Anxiety: (9) Hypertension: (10) Iron deficiency anemia: (11) Leukocytosis: Admission and Anticipated Discharge Date Admission Date: September 07, 2020 Supervising Physician Co-Signing Physician Notes Resident Physician Supervision Note: I independently interviewed and examined the patient and verified the luis history and physical, reviewed labs and image studies, discussed the case with the resident Dr. Murillo and agree with the findings and care plan. Subjective Overnight, patient's rates did tend towards 110-120 -- given lower UOP, was started on 80cc/hr of NSS. Given +5mg Lopressor x1. Rates subsequently tended more towards 100-110s. Feeling OK this morning. She reports being seen by oncology and discussing potential plans for port placement. Says that it has been tough to come to terms with her suspected diagnoses -- unsure what the future holds. She reports being very thankful for such an amazing support system - family, friends. Eager to pursue treatment when available. When possible, would like to go home to be with her family. No chest pain, palpitations, SOB. Appetite OK. Would like more food options if possible. Left wrist strength coming back from her perspective. More movement, ability to interact with environment. Review of Systems Review of Systems: as per HPI Physical Exam Constitutional: Well-appearing 85-year-old female who is lying back in her hospital bed looking at the window upon my arrival. She is freely conversive, but is more reserved to this morning. No acute distress. Respiratory: Good respiratory effort with symmetric sedation of the chest. Lungs are clear to auscultation bilaterally without crackles or wheezes. Cardiovascular: Normalhigh rate, irregular rhythm. S1 and S2 are present without murmurs rubs or gallops. Gastrointestinal (Abdomen): Normal active bowel sounds. Abdomen soft, nontender, nondistended to palpation. Neurologic: Left upper extremity, including the hands, appears well perfused. Improved range of motion at the left wrist with flexion and extension this morning. Strength is slightly improved from yesterday, at about a 4 out of 5 on the left. Resume Writer strength is about 70% of the right hand. Sensation to light touch is grossly intact at the left hand and throughout the left upper extremity when compared to the right side. Biceps and brachial radialis reflexes 2+ bilaterally. Results & Data Results & Data ([facility]) Vital Signs (Past 12 Hours) Vital Signs Temp Pulse Pulse Resp BP BP Pulse Ox 09/12/20 07:15 36.7 C 111 H 20 137/82 96 09/12/20 03:24 36.9 C 112 H 18 141/77 H 96 09/12/20 01:09 103 H 09/11/20 23:06 36.9 C 101 H 19 138/86 94 09/11/20 22:47 103 H 138/80 09/11/20 22:12 90 09/11/20 22:00 105 H Resident Activity Tracking Resident Involvement: Resident Care Provided Care Provided: Adult [facility]
--- NOTE | 2020-09-12 10:13 | Gastroenterology Progress Note ---
Date of Service September 12, 2020 Assessment & Plan (1) Esophageal mass: -Await pathology -Further plans per oncology Thank you for allowing us to participate in the care of this patient. If you should have any further questions or concerns, do not hesitate to contact us at extension [phone] or [phone]. Admission and Anticipated Discharge Date Admission Date: September 07, 2020 Subjective Patient is an 85 yo female who underwent an EGD on 09/11/2020. EGD indicated an esophageal tumor, likely malignant. Pathology is currently pending. Patient denies any current symptoms of melena, hematemesis, abdominal pain, nausea, heartburn, reflux, or abdominal pain. She reports she has seen oncology and is getting a port placed for possible chemotherapy. Review of Systems Constitutional: no fever and no chills Cardiovascular: no chest pain Gastrointestinal: no abdominal pain, no dysphagia and no melena Physical Exam Constitutional: well developed Respiratory: normal respiratory effort Cardiovascular: Extremities: no edema Gastrointestinal (Abdomen): Inspection/Auscultation: abdomen normal to inspection Musculoskeletal: Head/Neck/Chest: normocephalic Psychiatric: A+Ox3, euthymic affect Results & Data Results & Data ([facility]) Vital Signs (Past 12 Hours) Vital Signs Temp Pulse Pulse Resp BP BP Pulse Ox 09/12/20 10:00 09/12/20 07:15 36.7 C 111 H 20 137/82 96 09/12/20 03:24 36.9 C 112 H 18 141/77 H 96 09/12/20 01:09 103 H 09/11/20 23:06 36.9 C 101 H 19 138/86 94 09/11/20 22:47 103 H 138/80 09/11/20 22:12 90 Pulse Ox 09/12/20 10:00 98 09/12/20 07:15 09/12/20 03:24 09/12/20 01:09 09/11/20 23:06 09/11/20 22:47 09/11/20 22:12 PG Care Time/CCT Total # of Minutes Spent Total Time Spent with Patient: Total time spent is greater than 50% in coordination of care (as documented) at patient's floor/unit and/or counseling patient: Coding Level of Care Code 28224 Subseq Hosp Care Lvl 3 Diagnoses Esophageal mass K22.8
--- NOTE | 2020-09-12 10:24 | Consultation Report ---
DATE OF CONSULTATION: 09/12/2020 MEDICAL ONCOLOGY CONSULTATION REASON FOR CONSULTATION: Metastatic disease, unknown primary, suspected esophageal. HISTORY OF PRESENT ILLNESS: The patient is a very pleasant 85-year-old female who was admitted to [facility] on 09/06/2020 with left hand numbness and generalized weakness. The patient has several comorbid issues including atrial fibrillation, MDP, anxiety, hypertension and iron deficiency anemia. She again was admitted for focal weakness regarding her left hand for the past month or so. She also reported generalized weakness and fatigue. The patient reports anorexia with about a 10-pound weight loss over the past couple of months. She became more symptomatic interestingly, after receiving her second COVID-19 vaccine when specifically she noticed difficulty with ambulation describing herself as being off balance. Once she arrived in the Emergency Room, she underwent extensive laboratory and radiographic workup. Mostly initial radiographic investigation focused on possible stroke. MRI of the brain revealed numerous scattered acute infarcts in the bilateral cerebral hemispheres and watershed distributions, left caudate nucleus, and cerebellar hemispheres, likely from a cardioembolic source. The patient had also reported dysphagia and barium swallow, confirmed a persistent hold off of the barium tablet at gastroesophageal junction, which led to gastroenterology consultation and EGD. Biopsy was obtained, the endoscopist suspects lesion is neoplastic. Additionally, a CT scan of the abdomen and pelvis revealed innumerable liver metastatic lesions. Thus, the patient is suspected of suffering from metastatic esophageal cancer with pathologic confirmation pending. PAST MEDICAL HISTORY: Significant for iron deficiency anemia, mitral valve prolapse, anorexia/weight loss, history of pulmonary embolism, hyperlipidemia, hypertension, diverticulosis, chronic gastritis, anxiety and chronic anticoagulation. PAST SURGICAL HISTORY: She had an EGD in the past and also breast biopsy. MEDICATIONS: Prior to admission include atorvastatin 40 mg p.o. daily, chlorthalidone 12.5 mg p.o. daily, vitamin D3 50 mcg p.o. every day, iron tablet 1 p.o. daily, lisinopril 40 mg p.o. daily, metoprolol 150 mg p.o. daily, multivitamin 1 tablet p.o. daily, Xarelto 20 mg p.o. every day. ALLERGIES: No known drug allergies. FAMILY HISTORY: Mother suffered from macular degeneration, sister had a multitude of problems including dementia, diabetes, heart disease, macular degeneration and osteoporosis. SOCIAL HISTORY: The patient is , retired. Resides with her spouse. Negative for cigarettes, or illicit substances. She does enjoy an occasional glass of wine. REVIEW OF SYSTEMS: As per HPI, most notable for fatigue, generalized weakness and anorexia with a 10-pound weight loss. No fevers, chills or sweats. SKIN: No history of dermatosis or active skin lesions. HEENT: Denies headaches, lightheadedness or dizziness. Negative for acute visual or hearing deficits. Negative for sore throat. Positive for dysphagia. LYMPH: No history of lymphoproliferative disease. CARDIAC: No history of coronary artery disease. No current angina or palpitations. PULMONARY: No history of COPD. She is not short of breath, dyspneic or orthopneic. No cough or hemoptysis. GASTROINTESTINAL: Negative for abdominal pain, nausea, vomiting, diarrhea or constipation, hematochezia or melena stools. GENITOURINARY: No hematuria, dysuria, urinary incontinence. PSYCHIATRIC: Positive for anxiety. ENDOCRINE: Negative for thyroid disease or diabetes mellitus. MUSCULOSKELETAL: Positive for left upper extremity weakness. No arthralgias or history of arthritis. NEUROLOGIC: Negative for seizures or migraine headaches. Positive for thromboembolic stroke. HEMATOLOGIC: Positive for normocytic normochromic anemia. PHYSICAL EXAMINATION: GENERAL: Very delightful 85-year-old female, awake, alert and appropriate, in no acute distress. VITAL SIGNS: Temperature 36.7, pulse 111, respiratory rate 20, blood pressure 137/82. SKIN: Warm, dry, noncyanotic without petechia, rash or ecchymosis. HEENT: Head is atraumatic, normocephalic. Eyes: PERRLA, EOMI. Sclerae nonicteric. No conjunctival injection. Nares patent without rhinorrhea or discharge. Throat is clear. Tongue is midline. Mucous membranes are moist. NECK: Supple without JVD or thyromegaly. LYMPHATICS: No cervical or supraclavicular palpable nodes. HEART: Regular rate and rhythm. LUNGS: Clear to auscultation bilaterally. ABDOMEN: Soft, nontender, nondistended. EXTREMITIES: No clubbing, cyanosis or edema. Pulses and strength are equal in all 4 quadrants. NEUROLOGICAL: She is awake, alert and oriented x3. Cranial nerves are intact. RADIOGRAPHIC DATA: Discussed in the HPI. LABORATORY DATA: WBC count 12,720, hemoglobin 9.1, platelet count 206,000. PTT 51 seconds on heparin. Sodium 134, potassium 3.7, chloride 100, creatinine 0.69, BUN 8, alkaline phosphatase 142, AST 52, total bilirubin 1.2, albumin 2.2. IMPRESSION: 1. Acute cerebrovascular accident with multiple cerebral and cerebellar infarcts thought to be cardioembolic based on MRI findings. 2. Metastatic disease, primary unknown, suspect esophageal primary. 3. Atrial fibrillation with rapid ventricular rate. 4. Dysphagia attributable to probable esophageal cancer. 5. Hypoalbuminemia. 6. History of iron deficiency anemia. PLAN: It was my pleasure to visit with the patient this morning at bedside. She was very engaging and appropriate. Advised the patient of the suspected diagnosis and a relatively poor prognosis. The patient is definitely interested in salvage chemotherapy. I could not provide specifics because the pathology is pending at this time; however, assuming metastatic esophageal cancer generally taxanes are used as salvage. I would also check HER-2/shira status and incorporate anti-HER-2/shira therapy as appropriate. Need to work on the patient's nutritional status as her albumin is 2.2. Her overall performance status is reasonable to consider salvage chemotherapy. I made it very clear; however, any treatment offered is strictly palliative to extend her life and attempt to maintain quality. She is not an extremist or complaining of any pain at this time. I plan to have her reconvene at [facility] upon discharge within a week or two. In the meantime, I would ask general surgery to go ahead and place a MediPort to be done prior to discharge if possible. Thank you very much for allowing me to participate in her care. If you have questions or concerns, feel free to contact me at any time.
[2020-09-12] MEDS: CHLORTHALIDONE 25 MG TAB PO SCH (11:15)
[2020-09-12] MEDS: CHOLECALCIFEROL 1,000 UNITS 25 MCG TAB PO SCH (11:16)
[2020-09-12] MEDS: ASCORBIC ACID 500 MG TAB PO SCH (11:16)
[2020-09-12] MEDS: MULTIVITAMIN TAB PO SCH (11:16)
--- NOTE | 2020-09-12 14:28 | Surgery Consultation ---
Date of Consultation September 12, 2020 Assessment & Plan (1) Esophageal mass: This is an 85y F with PMH of afib on xarelto who presented to the [facility] ED on 09/06/20 with complaints of left arm weakness, fatigue and dysphagia. We have been consulted for consideration of Port placement as workup for dysphagia revealed concern for an esophageal mass at the GE junction that was biopsied by GI. CT a/p revealed hepatic masses findings suspicious for metastatic disease. Oncology has been consulted and are recommending port placement during this admission. She is currently on a heparin gtt for CVA noted on brain MRI. Would hold heparin gtt at midnight. Make NPO at midnight. We will place patient on the OR schedule for Mediport placement tomorrow. Dr. Gannon has obtained consent. History of Present Illness Attending Physician: Trinity Palacio MD History of Present Illness This is an 85y F with PMH of afib on xarelto who presented to the [facility] ED on 09/06/20 with complaints of left arm weakness. She also had complaints of a recent history of fatigue and dysphagia. Patient was found to have a CVA on brain MRI and with neurology consults and started on IV heparin. For her dysphagia she underwent a barium swallow that could not rule out a stricture/lesion at the GE junction, which led to GI performing an EGD yesterday. EGD revealed likely an esophageal mass at the GE junction that was biopsied. Since then a CT a/p has been ordered revealing numerous hepatic masses c/f metastatic disease. Oncology has been consulted and recommended general surgery place a Port for chemo prior to discharge. Allergies Allergy/AdvReac Type Severity Reaction Status Date / Time No Known Allergies Allergy Verified 09/06/20 19:09 Home Medications Medication Instructions Recorded Confirmed Type atorvastatin 40 mg PO QPM 09/06/20 09/06/20 History chlorthalidone 12.5 mg PO DAILY 09/06/20 09/06/20 History cholecalciferol (vitamin D3) 50 mcg PO QAM 09/06/20 09/06/20 History [Vitamin D3] iron,carbonyl-vitamin C [Vitron-C] 1 tab PO QAM 09/06/20 09/06/20 History lisinopril 40 mg PO QPM 09/06/20 09/06/20 History metoprolol succinate 150 mg PO QPM 09/06/20 09/06/20 History multivitamin [One A Day Vitamin] 1 tab PO QAM 09/06/20 09/06/20 History rivaroxaban [Xarelto] 20 mg PO QPM 09/06/20 09/06/20 History Patient History Medical History Anticoagulated by anticoagulation treatment Anxiety Chronic gastritis Colloid thyroid nodule Diverticulosis Dysphagia History of DVT (deep vein thrombosis) History of pulmonary embolism Hyperlipidemia Hypertension Iron deficiency anemia Mitral valve prolapse Unintentional weight loss Surgical History H/O breast biopsy History of esophagogastroduodenoscopy (EGD) Family History Sister Dementia Diabetes Heart disease Macular degeneration Osteoporosis Son Asthma Mother Macular degeneration Social History Smoking Status: Never smoker Hx Alcohol Use: Yes Alcohol type: wine Alcohol type Comment: socially w/ family Hx Substance Use: No Preferred Language: Japanese Communication Ability: Effective Beliefs That Will Affect Care: None marital status: Current Living Situation: Spouse Feels Safe at Home: Yes Safety Concerns: Feels Safe At This Time Assistive Devices: Cane Review of Systems Constitutional: + weight loss; no fever and no chills Gastrointestinal: no abdominal pain Neurologic: L arm weakness Physical Exam Physical Exam: awake/alert Constitutional: cooperative; no acute distress Respiratory: normal respiratory effort Chest (Breasts): Chest: normal inspection of chest Results & Data ([facility]) Vital Signs (Past 12 Hours) Vital Signs Temp Pulse Pulse Resp BP Pulse Ox Pulse Ox 09/12/20 10:00 101 H 98 09/12/20 07:15 36.7 C 111 H 20 137/82 96 09/12/20 03:24 36.9 C 112 H 18 141/77 H 96 MR brain wo con HISTORY: 85 years-old Female stroke workup, focal weakness L hand acute strokelike symptoms COMPARISON: Head CT, CTA head and neck studies 09/06/2020 TECHNIQUE: Multiplanar multisequence MR of the brain was obtained without the use of IV contrast. FINDINGS: Mat Packer localizer images demonstrate no gross extracranial abnormality. Numerous small areas of probably cortically based restricted diffusion noted within the watershed distributions of the centrum semiovale and cortical distributions of the frontal parietal lobes including the right motor cortex. Additional tiny foci also noted within the periventricular distributions of the frontal and parietal occipital lobes and left caudate head. Numerous small foci are also seen within the bilateral cerebellar hemispheres. These foci demonstrate decreased signal on ADC map with increased signal on the T2/FLAIR series. Age-related involutional changes with extensive T2/FLAIR hyperintensities suggestive of advanced chronic microvascular ischemic disease. There is no acute intracranial hemorrhage, midline shift, abnormal extra-axial collection, hydrocephalus or intracranial mass. There is a lobular 1.5 x 1.6 x 1.8 cm lesion of the right parotid gland with intermediate signal on the T1 series. The cerebral venous sinuses and major arterial flow voids are patent. Unremarkable and orbits and calvarium. Mastoid air cells and paranasal sinuses are clear. IMPRESSION: 1. Numerous scattered acute infarcts as above within the bilateral cerebral hemispheres and watershed distributions, left caudate nucleus and cerebellar hemispheres, likely from a cardioembolic source. 2. No acute intracranial hemorrhage or midline shift. 3. Age-related involutional changes with extensive chronic microvascular ischemic disease. 4. Indeterminate 1.8 cm T2 hyperintense lesion of the right parotid gland. ACT 112: Negative or not required by law. The above report was generated using voice recognition software. It may contain grammatical, syntax or spelling errors. CT abd pelvis oral and IV con CLINICAL HISTORY: Abnormal chest CT. Suspected hepatic metastasis. Evaluate for abdominal primary. COMPARISON STUDY: CT scan of chest dated 09/07/2020 TECHNIQUE: Patient was scanned following administration of dilute oral contrast, and in a dynamic helical fashion during intravenous administration of 94 cc of Optiray 320 A dose lowering technique was utilized adhering to the principles of ALARA. CT DOSE: 295.78 mGy.cm FINDINGS: Lower chest: There is a moderate hiatal hernia. There are small bilateral ple ural effusions left greater than right. There are left basilar atelectatic changes. Liver: There are innumerable space occupying hepatic masses viewed as highly suspicious for extensive hepatic metastatic disease. The liver has a nodular serosal surface, consistent with cirrhosis or pseudocirrhosis. Gallbladder: Punctate gallstone versus artifact. Spleen: Normal in size and attenuation. Pancreas: Unremarkable. Adrenal glands: Unremarkable. Kidneys: There is a to small to characterize 6 mm left renal hypodense lesions statistically representing a cyst. There is no hydronephrosis. Bowel: Evaluation of bowel is limited due to beam hardening artifact from barium secondary to a barium swallow performed the day prior. There are no transition zones indicate bowel obstruction. There is no evidence of acute diverticulitis. No colonic lesions are visualized given the technical limitations of the study. Peritoneum: There is no intraperitoneal free air or abdominal ascites. Vasculature: The abdominal aorta is normal in course and caliber. Adenopathy: None. Pelvic viscera: There is a 34 mm right adnexal cystic lesion likely ovarian Skeletal structures: No destructive osseous lesions are seen. IMPRESSION: 1. Technically limited study secondary to artifact induced by barium within the colon. The patient had a barium swallow performed the prior day 2. Innumerable space occupying masses viewed as highly suspicious for metastatic disease 3. Small bilateral pleural effusions left greater than right 4. Hiatal hernia 5. No evidence of bowel obstruction. No evidence of free air 6. 34 mm right adnexal cystic lesion likely ovarian ACT 112: Negative or not required by law. Electronically signed by: Juan Domínguez M.D. 09/08/2020 5:05 PM [place] barium swallow CLINICAL HISTORY: solid food dysphagia COMPARISON STUDY: No previous studies for comparison. Fluoroscopy time: 2.4 minutes. Number of fluoroscopic images: 7. FINDINGS: Moderate esophageal dysmotility is noted. Mucosal detail is diminished on this examination. There is a moderate to large hiatal hernia with partially intrathoracic stomach. This represents a sliding-type hiatal hernia. There was persistent holdup of a 13 mm barium tablet within the distal esophagus at the GE junction. An underlying stricture cannot be excluded on this exam. IMPRESSION: 1. Moderate to large sliding-type hiatal hernia with partially intrathoracic stomach. 2. Persistent holdup of a 13 mm barium tablet at the gastroesophageal junction. Underlying stricture or mucosal lesion cannot be excluded on this examination. GI consultation for consideration for endoscopy is recommended. 3. Moderate esophageal dysmotility. ACT 112: Negative or not required by law. Electronically signed by: Ayden Ibrahim M.D. 09/07/2020 2:35 PM Attending MD: Marc Mcconnell MD Procedure: Upper GI endoscopy Providers: Marc Mcconnell MD Referring MD: Ant Nieto Indications: Dysphagia Medicines: Monitored Anesthesia Care Complications: No immediate complications. Estimated blood loss: None. Estimated Blood Loss: Estimated blood loss: none. Procedure: Pre-Anesthesia Assessment: - Prior Anticoagulants: The patient has taken heparin, last dose was day of procedure. - ASA Grade Assessment: III - A patient with severe systemic disease. After obtaining informed consent, the endoscope was passed under direct vision. Throughout the procedure, the patient's blood pressure, pulse, and oxygen saturations were monitored continuously. The Endoscope was introduced through the mouth, and advanced to the second part of duodenum. The upper GI endoscopy was accomplished without difficulty. The patient tolerated the procedure well. Findings: A medium-sized, fungating mass with stigmata of recent bleeding was found at the gastroesophageal junction with an associated stricture at the area as well. The mass was likely malignant along with the stricture. Biopsies were taken with a cold forceps for histology. Estimated blood loss: none. A standard Q190 EGD scope was able to pass through the stricture The entire examined stomach was normal. The duodenal bulb and second portion of the duodenum were normal. A large hiatal hernia was present. 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 Biopsied. - Normal stomach. - Normal duodenal bulb and second portion of the duodenum. - Large hiatal hernia. Recommendation: - Return patient to [facility] for [facility] care. - Resume previous diet today. - Await pathology results. -oncology consult as this is likely a metastatic esophageal malignancy Marc Mcconnell MD PG Care Time/CCT Total # of Minutes Spent Total Time Spent with Patient: Total time spent is greater than 50% in coordination of care (as documented) at patient's floor/unit and/or counseling patient: Coding Level of Care Code 66091 Initial Inpt Care Lvl 1 Diagnoses Esophageal mass K22.8
--- NOTE | 2020-09-12 15:36 | Anesthesiology Consultation ---
Date of Service September 12, 2020 The patient had a stroke on 09/06/20, but tolerated an EGD with anesthesia on 09/11/20 and had no problems. Assessment & Plan (1) Encounter for pre-operative examination: Chart Review Chart Review: Acceptable Risk for Surgery and Patient NOT seen in Pre Admission Testing Consults Requested none History Surgery Operation Date: 09/11/20 16:00 Proposed Procedures p Esophagogastroduodenoscopy Dr. Mcconnell - Marc Mcconnell MD Operation Date: 09/13/20 07:00 Proposed Procedures p Infusaport Insertion - Maksim Gannon MD, FACS Height/Weight Height: 5 ft 4 in Weight: 65.6 kg Allergies Allergy/AdvReac Type Severity Reaction Status Date / Time No Known Allergies Allergy Verified 09/06/20 19:09 Medications Home Medications Medication Instructions Recorded Confirmed Last Taken atorvastatin 40 mg PO QPM 09/06/20 09/06/20 Unknown chlorthalidone 12.5 mg PO DAILY 09/06/20 09/06/20 Unknown cholecalciferol (vitamin D3) 50 mcg PO QAM 09/06/20 09/06/20 Unknown [Vitamin D3] iron,carbonyl-vitamin C [Vitron-C] 1 tab PO QAM 09/06/20 09/06/20 Unknown lisinopril 40 mg PO QPM 09/06/20 09/06/20 Unknown metoprolol succinate 150 mg PO QPM 09/06/20 09/06/20 Unknown multivitamin [One A Day Vitamin] 1 tab PO QAM 09/06/20 09/06/20 Unknown rivaroxaban [Xarelto] 20 mg PO QPM 09/06/20 09/06/20 Unknown Active Medications Generic Name Dose Route Start Last Admin Trade Name Freq PRN Reason Stop Dose Admin Ascorbic Acid 250 mg 09/07/20 09:00 09/12/20 11:16 Ascorbic Acid 500 Mg Tab PO 10/07/20 08:59 250 mg DAILY CAMERON Administration Atorvastatin Calcium 40 mg 09/07/20 21:00 09/11/20 19:37 Atorvastatin 40 Mg Tab PO 10/07/20 20:59 40 mg QPM CAMERON Administration Chlorthalidone 12.5 mg 09/07/20 09:00 09/12/20 11:15 Chlorthalidone 25 Mg Tab PO 10/07/20 08:59 12.5 mg DAILY CAMERON Administration Ferrous Sulfate 325 mg 09/07/20 09:00 09/12/20 08:18 Ferrous Sulfate 325 Mg Tab PO 10/07/20 08:59 325 mg QAM CAMERON Administration Heparin Sodium/Dextrose 25,000 units in 500 mls @ 17 mls/hr 09/07/20 02:00 09/12/20 00:18 Heparin Sodium/Dextrose IV 09/12/20 23:59 850 units/hr .Q24H CAMERON 17 mls/hr Administration Protocol 850 UNITS/HR Lisinopril 40 mg 09/07/20 21:00 09/11/20 19:37 Lisinopril 40 Mg Tab PO 10/07/20 20:59 40 mg QPM CAMERON Administration Metoprolol Succinate 150 mg 09/10/20 21:00 09/11/20 19:37 Metoprolol Succ 50mg Ext Rel Tab PO 10/10/20 20:59 150 mg QPM CAMERON Administration Metoprolol Tartrate 5 mg 09/07/20 17:44 09/11/20 22:47 Metoprolol Tartrate 1 Mg/Ml Vial IV 10/07/20 19:59 5 mg Q4 PRN Administration tachycardia Multivitamins 1 tab 09/07/20 09:00 09/12/20 11:16 Multivitamin Tab PO 10/07/20 08:59 1 tab QAM CAMERON Administration Vitamin D 2,000 units 09/07/20 09:00 09/12/20 11:16 Cholecalciferol 1,000 Units 25 Mcg Tab PO 10/07/20 08:59 2,000 units QAM CAMERON Administration NPO Date Last Intake of Fluids: 09/11/20 Time Last Intake of Fluids: 07:00 Date Last Intake of Solids: 09/06/20 Past Medical History Medical History Anticoagulated by anticoagulation treatment Anxiety Chronic gastritis Colloid thyroid nodule Diverticulosis Dysphagia History of DVT (deep vein thrombosis) History of pulmonary embolism Hyperlipidemia Hypertension Iron deficiency anemia Mitral valve prolapse Unintentional weight loss Past Family History Family History Sister Dementia Diabetes Heart disease Macular degeneration Osteoporosis Son Asthma Mother Macular degeneration Past Surgical History Surgical History H/O breast biopsy History of esophagogastroduodenoscopy (EGD) Social History Smoking Status: Never smoker Hx Alcohol Use: Yes Alcohol type: wine alcohol intake frequency: a few times a month Hx Substance Use: No Physical Exam Vital Signs Last Vital Signs Temp 36.8 C 09/12/20 15:19 Pulse 115 H 09/12/20 15:19 Resp 20 09/12/20 15:19 BP 143/87 H 09/12/20 15:19 Pulse Ox 94 09/12/20 15:19 Testing Laboratory Results 09/10/20 06:19 09/10/20 06:19 PT 13.0 Seconds (9.0-12.0) H 09/07/20 08:40 INR 1.3 (0.9-1.1) H 09/07/20 08:40 APTT 48.1 Seconds (21.0-31.0) H* 09/12/20 06:56 Hemoglobin A1c 5.5 % (4.5-5.6) 09/07/20 08:40 Urine Color Dark Yellow 09/06/20 20:10 Urine Appearance Clear (Clear) 09/06/20 20:10 Urine pH 5.5 (4.5-7.5) 09/06/20 20:10 Ur Specific Laurier 1.041 (1.000-1.030) H 09/06/20 20:10 Urine Protein 1+ (Negative) H 09/06/20 20:10 Urine Glucose (UA) Negative (Negative) 09/06/20 20:10 Urine Ketones Trace (Negative) H 09/06/20 20:10 Urine Nitrite Negative (Negative) 09/06/20 20:10 Ur Leukocyte Esterase Negative (Negative) 09/06/20 20:10 Urine WBC (Auto) 1-5 /hpf (0-5) 09/06/20 20:10 Urine RBC (Auto) 0-4 /hpf (0-4) 09/06/20 20:10 U Hyaline Cast (Auto) 5-10 /lpf (0-5) H 09/06/20 20:10 U Epithel Cells (Auto) 20-30 /lpf (0-5) H 09/06/20 20:10 Urine Bacteria (Auto) Negative (Negative) 09/06/20 20:10 Blood Type A Positive 09/06/20 18:29 Antibody Screen NEGATIVE 09/06/20 18:29
[2020-09-12] MEDS: METOPROLOL SUCC 50MG EXT REL TAB PO SCH (21:13)
[2020-09-12] MEDS: lisinopril 40 MG TAB PO SCH (21:13)
[2020-09-12] MEDS: ATORVASTATIN 40 MG TAB PO SCH (21:13)
[2020-09-12] MEDS ORDERED: D5W AND LACTATED RINGERS 1,000 ML IV SCH (23:55)
[2020-09-13] MEDS ORDERED: STOP HEPARIN DRIP ORDER ONE
--- NOTE | 2020-09-13 05:07 | History & Physical Bridge Note ---
Date of Service September 13, 2020 History & Physical Bridge Note I have examined the patient, reviewed the History & Physical and in the interval since the performance of the History & Physical I have noted the following changes of clinical significance: no changes noted
[2020-09-13] MEDS ORDERED: ceFAZolin 2000MG 2,000 MG/15 ML SYR IV ONE (06:00)
[2020-09-13] MEDS ORDERED: LIDOCAINE HCL 2% 2 ML VIAL/AMP(20MG/ML) INFIL ONE (06:36)
[2020-09-13] MEDS ORDERED: PROPOFOL IV EMULSION 10 MG/ML 20 ML VIAL IV ONE (06:36)
[2020-09-13] MEDS ORDERED: HEPARIN (PORCINE) 1000 UNIT/ML 10 ML (CATH LAB USE ONLY) ONE (06:38)
[2020-09-13] MEDS ORDERED: LIDOCAINE HCL 1% 20 ML VIAL ONE (06:38)
[2020-09-13] MEDS ORDERED: THROMBIN FOR SOLN 20000 UNIT KIT ONE (06:39)
[2020-09-13] MEDS ORDERED: MIDAZOLAM HCL 1 MG/ML 2ML VIAL ONE (07:03)
[2020-09-13] MEDS ORDERED: fentaNYL citrate 100 MCG/2 ML VIAL ONE (07:03)
[2020-09-13] MEDS ORDERED: ONDANSETRON INJ 2 MG/ML 2 ML VIAL ONE (07:03)
--- NOTE | 2020-09-13 07:58 | Post Operative Brief Note ---
PG Immediate Post Op with CF Date of Surgery September 13, 2020 Pre & Post Diagnosis Operation Date: 09/11/20 16:00 Pre-Op Diagnosis: FOCAL WEAKNESS Post-Op Diagnosis: Esophageal mass/stricture, Hiatal hernia Operation Date: 09/13/20 07:00 Pre-Op Diagnosis: Esophageal mass, need for mediport Post-Op Diagnosis: Esophageal mass, need for mediport I identified the patient and participated in the time-out.: Yes Procedure Operation Date: 09/11/20 16:00 Actual Procedures p EGD Biopsy Cytology - Marc Mcconnell MD Operation Date: 09/13/20 07:00 Actual Procedures p Infusaport Insertion(Left) - Maksim Gannon MD, FACS Surgeon Maksim Gannon MD, FACS Lube Technician nurses Estimated Blood Loss 5 Findings Consistent with Post-Op Diagnosis Specimens Specimen Description: A. Biopsy esophageal mass/stricture 1858
--- NOTE | 2020-09-13 08:20 | XRay Report ---
SINGLE VIEW CHEST CLINICAL HISTORY: Status post infusion port placement. FINDINGS: An AP, portable, upright chest radiograph is compared to chest x-ray and chest CT dated 09/07. A left subclavian central venous infusion port has been placed. The tip of the catheter projec ts over the cavoatrial junction. The heart is enlarged noting atherosclerotic calcification of the th oracic aorta. The pulmonary vasculature is noncongested. There is left basilar consolidation and a sm all left pleural effusion. No pneumothorax is seen. The skeletal structures are osteopenic. There are healed left-sided rib fractures. A hiatal hernia is noted. Enteric contrast is noted in the left upp er abdomen. An indeterminant linear density projects over the left upper abdomen. IMPRESSION: 1. A left subclavian central venous infusion port has been placed as above. No pneumothorax is seen p ost procedure. 2. Hiatal hernia. 3. Cardiomegaly without radiographic evidence of congestive failure. 4. Small left pleural effusion with left basilar consolidation. ACT 112: Negative or not required by law. Electronically signed by: Travon Avalos M.D. 09/13/2020 8:19 AM
[2020-09-13] MEDS ORDERED: HYDROCODONE/ACETAMOPHEN 5/325MG TAB PO PRN ×2 (08:33)
[2020-09-13] MEDS ORDERED: ACETAMINOPHEN 325 MG TAB PO PRN (08:33)
--- NOTE | 2020-09-13 08:38 | Anesthesiology Progress Note ---
Date of Service September 13, 2020 Anesthesia Post Procedure Vital Signs Vital Signs: Temp Pulse Pulse Pulse Pulse Resp BP 09/13/20 08:30 107 H 16 119/71 09/13/20 08:20 36.7 C 93 H 15 110/57 L 09/13/20 08:10 107 H 21 112/65 09/13/20 08:04 36.9 C 102 H 15 105/64 09/13/20 06:50 37 C 111 H 18 139/86 09/13/20 02:51 36.7 C 100 H 18 128/81 09/12/20 23:18 36.9 C 104 H 16 117/74 09/12/20 19:31 37.1 C 130 H 18 139/81 09/12/20 15:19 36.8 C 115 H 20 143/87 H 09/12/20 10:00 101 H Pulse Ox Pulse Ox 09/13/20 08:30 100 09/13/20 08:20 100 09/13/20 08:10 100 09/13/20 08:04 99 09/13/20 06:50 09/13/20 02:51 96 09/12/20 23:18 97 09/12/20 19:31 96 09/12/20 15:19 94 09/12/20 10:00 98 Pain Intensity Left Upper Chest: Pain Intensity: 0 Transfer of Care Handoff Completed per policy Notes Mental Status: alert / awake / arousable and participated in evaluation Patient Amnestic to Procedure: Yes Nausea / Vomiting: adequately controlled Pain: adequately controlled Airway Patency, RR, SpO2: stable & adequate BP & HR: stable & adequate Hydration State: stable & adequate Anesthetic Complications: no major complications apparent
[2020-09-13 09:13] LABS: INR 1.3 (0.9-1.1); Prothrombin Time 13.1 Seconds (9.0-12.0)
--- NOTE | 2020-09-13 09:21 | Operative Report (OR) ---
DATE OF OPERATION: 09/13/2020 NAME OF OPERATION: Access port. POSTOPERATIVE DIAGNOSIS: Esophageal cancer. POSTOPERATIVE DIAGNOSIS: Esophageal cancer. STAFF SURGEON: Maksim Gannon MD. ANESTHESIA: 1% plain lidocaine with sedation. DESCRIPTION OF PROCEDURE: The patient was brought in the operating room and placed on the operating table in supine position. Her chest was prepped and draped in usual fashion. 1% plain lidocaine was used to anesthetize skin and subcutaneous tissue over the left deltopectoral groove. Incision made carrying dissection down identifying the cephalic vein in the left side, ligating it distally using 2-0 silk suture. It was then opened. A catheter passed under fluoroscopy into the superior vena cava. We also did use fluoroscopy during the entire operation. The catheter was then aspirated and flushed with heparinized solution. Pocket was fashioned in the chest wall. Port was attached to the catheter, placed into the pocket and secured to the muscle using 3-0 Prolene suture. The port had been aspirated and flushed with heparinized solution. The wound was irrigated with antibiotic solution. Subcutaneous tissue reapproximated using 2-0 plain suture and then the skin reapproximated using 4-0 nylon suture. Dressing applied and patient transferred to recovery room in stable condition. I attest to the content of the Intraoperative Record and any orders documented therein. Any exception s are noted below.
[2020-09-13] MEDS: MULTIVITAMIN TAB PO SCH (10:25)
[2020-09-13] MEDS: ASCORBIC ACID 500 MG TAB PO SCH (10:26)
[2020-09-13] MEDS: FERROUS SULFATE 325 MG TAB PO SCH (10:26)
[2020-09-13] MEDS: CHOLECALCIFEROL 1,000 UNITS 25 MCG TAB PO SCH (10:26)
[2020-09-13] MEDS: CHLORTHALIDONE 25 MG TAB PO SCH (10:26)
--- NOTE | 2020-09-13 10:50 | Ultrasound Report ---
ULTRASOUND-GUIDED FINE-NEEDLE ASPIRATION OF A LIVER MASS HISTORY: Multiple hepatic masses. carcinoma? COMPARISON: Abdomen and pelvis CT 09/08/2020. PROCEDURE: Written informed consent was obtained. The epigastric region was prepped and draped in the usual sterile fashion. 1% lidocaine was used for local anesthesia. A total of 4 passes using a 22-ga uge Kenji needle and spinal needle were made through 2 adjacent hepatic lesions at the left hepati c lobe under ultrasound guidance. Specimens were given to the on-site pathologist. The patient tolera scott the procedure well. There were no immediate complications. IMPRESSION: Status post ultrasound-guided fine-needle aspiration of 2 adjacent left hepatic lobe masses. Specimen s were given to the pathology department. No immediate complications. ACT 112: Negative or not required by law. Electronically signed by: Jason Cooper M.D. 09/13/2020 10:48 AM
--- NOTE | 2020-09-13 13:39 | Discharge Summary ---
Date of Service September 13, 2020 Admission HPI Per Admitting Provider Rosie De Guzman is an 85 y/o female with a PMHx of atrial fibrillation, MVP, anxiety, HTN, hyperlipidemia, iron deficiency anemia who presented to the ED today, 09/06/20, with complaint of focal weakness to the left hand. For the past 1 month, patient reports progressively worsening fatigue and generalized weakness; she attributed these sxs to the Pfizer COVID vaccine. On Thursday, 2 days ago, patient received the 2nd dose of the COVID-19 vaccine, in her left arm (which is non-dominant arm). Hours after receiving this 2nd vaccine, patient went to the [facility] where she was noted to have difficulty w/ ambulation and feeling of being "off balance." Patient went home and slept. She reports that other than being fatigued, her morning yesterday was routine. Yesterday afternoon around 2:30pm, she noted to have acute left hand numbness and weakness. Patient called her PCP's office today and was seen this afternoon; due to her sxs and hx, it was recommended that she come to the ED for further evaluation. In addition to the sxs noted above, patient reports a 2+ month hx of dysphagia. Reports difficulty swallowing only solid foods, and mostly meats; no difficulty with liquids. She has also had a significantly decreased appetite over the past 3-4 weeks and an unintentional 12 lb. weight loss. Patient notes that she has had prior GI evaluation and EGD "several years ago" with Dr. Little but states that there were no abnormal findings on EGD. Admission Exam Per Admitting Provider GENERAL: No acute distress. Appears stated age. Well developed and well nourished. Vital signs reviewed. EYES: PERRLA. EOMI. Anicteric sclerae. HENT: Moist mucous membranes. No pharyngeal erythema or exudates. RESPIRATORY: Clear to auscultation bilaterally. No wheezing, rales, or rhonchi. CARDIOVASCULAR: Irregularly irregular rhythm. Tachycardia with rates in 110s. ABDOMEN: Soft, non-tender and non-distended. No palpable masses. Normal bowel sounds. EXTREMITIES: No edema. Non-tender to palpation. NEUROLOGIC: A/O x3. CN II-XII grossly intact. Cerebellar testing with [id number] in tact but noted to be slowed with left hand. No pronator drift. Sensation in tact throughout BUE and BLE. 5/5 strength in BLE. 5/5 strength in RUE. 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 Normal speech. No dysarthria. Significant difficulty with rapid alternating movements of left hand. PSYCHIATRIC: Cooperative. Appropriate mood and affect. Principal Diagnosis cerebral vascular attacks atrial fibrillation dysphagia esophageal mass liver nodules Discharge Exam Constitutional WD/WN, vitals as above Respiratory normal respiratory effort, lungs clear to auscultation Cardiovascular Normal rate, irregular rhythm. S1/S2 present without m/r/g Gastrointestinal (Abdomen) normal bowel sounds, soft, nontender, no hepatosplenomegaly Discharge Data Allergies Allergy/AdvReac Type Severity Reaction Status Date / Time No Known Allergies Allergy Verified 09/06/20 19:09 Consultations 09/06/20 20:01 ED Decision to Admit Stat 09/06/20 23:14 Consult Case Management - Discharge Planning Routine Consult Gastroenterology Routine Consult Neurology Routine 09/07/20 01:48 Consult Cardiology Routine 09/11/20 13:55 Consult Oncology Routine 09/12/20 13:55 Consult General Surgery Routine 09/12/20 15:04 Consult Radiology Routine Procedures Performed Operation Date: 09/11/20 16:00 Actual Procedures p EGD Biopsy Cytology - Marc Mcconnell MD Operation Date: 09/13/20 07:00 Actual Procedures p Infusaport Insertion(Left) - Maksim Gannon MD, FACS Ordered Studies Head CT (09/06) IMPRESSION: No acute intracranial findings Head CTA (09/06) IMPRESSION: 1. No evidence of aneurysm 2. No evidence of major intracranial branch occlusion 3. Long segment narrowing of the distal right vertebral artery 4. Hard palate hyperostosis Neck CTA (09/06) IMPRESSION: 1. No evidence of hemodynamically significant carotid stenosis 2. Moderate long segment narrowing of the distal right vertebral artery. 3. Stable 31 mm right lobe thyroid nodule Brain MRI (09/06) IMPRESSION: 1. Numerous scattered acute infarcts as above within the bilateral cerebral hemispheres and watershed distributions, left caudate nucleus and cerebellar hemispheres, likely from a cardioembolic source. 2. No acute intracranial hemorrhage or midline shift. 3. Age-related involutional changes with extensive chronic microvascular ischemic disease. 4. Indeterminate 1.8 cm T2 hyperintense lesion of the right parotid gland. CXR (09/06) IMPRESSION: 1. Cardiomegaly 2. Hiatal hernia 3. Possible thyroid goiter 4. Mild nonspecific interstitial thickening. No evidence of lobar consolidation Barium Swallow XR (09/07) IMPRESSION: 1. Moderate to large sliding-type hiatal hernia with partially intrathoracic stomach. 2. Persistent holdup of a 13 mm barium tablet at the gastroesophageal junction. Underlying stricture or mucosal lesion cannot be excluded on this examination. GI consultation for consideration for endoscopy is recommended. 3. Moderate esophageal dysmotility. Chest CTA (09/07) IMPRESSION: 1. Findings are consistent with extensive/diffuse multifocal hepatic metastatic disease. 2. Nodularity of the hepatic service contour suggests changes of cirrhosis versus pseudocirrhosis. 3. There are several small and age indeterminant peripheral pulmonary emboli as detailed above. 4. There is mild ectasia of the ascending thoracic aorta which measures up to 3.7 cm diameter. 5. The thoracic aorta is otherwise normal in appearance. No dissection is seen. 6. There are small clustered pulmonary nodules in the left upper lobe, as well as at least 10 additional subcentimeter pulmonary nodules scattered throughout both lungs. This favors a chronic infectious/inflammatory etiology; however, given the findings in the liver metastatic disease is not excluded. Attention at follow-up is recommended. 7. Cardiomegaly and trace pleural effusions. Intralobular septal thickening suggests a component of congestive failure. 8. There is no lobar consolidation typical for pneumonia. 9. Large hiatal hernia. 10. Additional findings as above. CT - A/P w/ Conotrast (09/08) IMPRESSION: 1. Technically limited study secondary to artifact induced by barium within the colon. The patient had a barium swallow performed the prior day 2. Innumerable space occupying masses viewed as highly suspicious for metastatic disease 3. Small bilateral pleural effusions left greater than right 4. Hiatal hernia 5. No evidence of bowel obstruction. No evidence of free air 6. 34 mm right adnexal cystic lesion likely ovarian CXR (09/13) - after procedure, port placement IMPRESSION: 1. A left subclavian central venous infusion port has been placed as above. No pneumothorax is seen post procedure. 2. Hiatal hernia. 3. Cardiomegaly without radiographic evidence of congestive failure. 4. Small left pleural effusion with left basilar consolidation. Pathology (Esophageal Mass) - 09/11 Esophagus, mass/stricture, biopsy: - Columnar/cardia type mucosa. - Negative for intestinal metaplasia and dysplasia. - Squamous mucosa noted. - See comment. Comment: The epithelium present appears benign. The biopsy does not explain the clinical history of a mass/stricture. Clinical correlation is suggested. Hospital Course (1) Acute CVA (cerebrovascular accident): Rosie De Guzman is a very pleasant 85-year-old female with a notable past medical history of known atrial fibrillation, a history of a PE in 2011, MVP, anxiety, hypertension, hyperlipidemia, hypothyroidism, and iron deficiency anemia who was admitted on 09/06/2020 for new onset left upper extremity weakness, subsequently found to have evidence of numerous acute infarcts in the cerebrum, caudate nucleus, and cerebellar hemispheres, concerning for a cardioembolic source. At the time of admission, she also endorsed an approximately 2-month history of dysphagia and 10lb weight loss. While Xarelto failure was initially suspected to be the cause of her strokes, chest imaging obtained for further work-up incidentally revealed numerous hepatic lesions concerning for a newly identified metastatic disease process. The patient has no personal history of cancer. Imaging of the abdomen and pelvis was unrevealing for possible primary source. 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 This is suspected to be the primary source of her hepatic lesions. While the biopsy did return benign tissue, it is still thought to be malignant at this time. Liver biopsy performed for further characterization. It is also suspected that her strokes were a result of hypercoagulability of malignancy, leading to anticoagulation failure and thromboembolism formation. She remains admitted for further work-up of these conditions. New Esophageal Mass and Suspected Hepatic Metastatic Disease - Incidental lesions found on chest imaging; strongly suspected to be malignant, likely from esophageal source based on EGD. - Clinically, patient reported 2+ months of dysphagia with associated 10lb weight loss. No cancer history. - Finding on chest and A/P CT demonstrating extensive/diffuse multifocal hepatic disease, strongly suspected to be malignant - Scan also revealed a cluster of nodules in both lungs (may be related) - No colonic lesions identified - GI following, appreciate work-up and recommendations: - EGD on 09/11 significant for fungating esophageal mass at GEJ, possibly representing a primary source - Pathology: "The epithelium present appears benign. The biopsy does not explain the clinical history of a mass/stricture." - Malignancy still suspected at present - Liver biopsy. Await results (pending at discharge) - Oncology consulted for further insight, planning, and management - Patient interested in salvage chemotherapy - s/p Mediport Placement on 09/13 - Recommend checking HER-2/shira status - Recommend outpatient follow-up in 1-2 weeks' time (Case Management arranging) 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 -- Likely from cardioembolic source based on MRI; motor deficits improved greatly while here - Clinically, patient p/w 2-day course of balance difficulty --> left arm numbness/weakness, improved over hospital course - Suspected to have occurred due to hypercoagulability of suspected malignancy leading to anticoagulation failure, vs. Xarelto failure - Work-up significant for following - Atrial fibrillation with RVR (continues) - CTA-Head/Neck: No occlusion; no carotid stenosis, long segment narrowing of distal RVA - MRI Brain: Numerous scattered acute infarcts within b/l cerebrum and watershed areas, L caudate, and cerebellar hemispheres -- likely from cardioembolic source. - TTE ordered: Hyperdynamic LV. LVEF >70%. Moderate LVH. Moderate TR. - CT-A Chest w/ Contrast did not show aortic plaque rupture (see above - hepatic disease) - Consulted neurology, cardiology - Transition to Lovenox, continue as outpatient - Neuro follow-up in 6-8 weeks as outpatient - Patient will continue PT as an outpatient at discharge Atrial Fibrillation with RVR -- RVR demonstrating improvement overall, asymptomatic - Cardiology followed while here: continue home metoprolol - Lovenox 70mg SQ q12h upon discharge Small, age indeterminant pulmonary emboli without acute cor pulmonale - Noted on CTA-Chest - Anticoagulation as above Dysphagia -- due to esophageal mass with stricture (see above) - Complaint of dysphagia for 2+ months with solid foods - Swallow study showing retention of contrast fluid in the esophagus - EGD demonstrating fungating mass at GEJ -- as above - 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 Asymptomatic. - Troponin elevation noted at admission, peak of 0.679 thereafter - Cardiology following: likely from supply/demand mismatch from RVR, LVH at presentation Leukocytosis -- no symptoms of infection - Suspect secondary to stress response, possible malignancy, acute CVA, and recent COVID vaccine Elevated LFTs, Mild -- in setting of newly discovered hepatic disease - AST and ALP remain slightly elevated, ALT WNL History of Iron Deficiency Anemia -- noted back to 2011 - Current anemia with Hgb 9-11 on daily labs - Review of PCP records do show Hgb ranging from 9 - 14, with mixed microcytos is/normal MCVs - Per PCP records, in 12/2015, did demonstrate iron studies suspicious for POLLY - Continue home iron while here Hyperlipidemia - Continue home atorvastatin Hypertension - Continue home chlorthalidone, lisinopril 40mg Severe protein-calorie malnutrition - Nutritional support with ensure/boost. (2) Atrial fibrillation with rapid ventricular response: (3) Elevated troponin: (4) Dysphagia: (5) Hyperlipidemia: (6) Unintentional weight loss: (7) Anticoagulated by anticoagulation treatment: (8) Anxiety: (9) Hypertension: (10) Iron deficiency anemia: (11) Leukocytosis: Total Time Total Time Spent Total Time Spent (In Minutes): 45 minutes Discharge Plan Discharge Items Patient Disposition: Home - Self-Care Reason For Visit: FOCAL WEAKNESS Discharge Diagnosis: cerebral vascular accident (multiple) atrial fibrillation multiple hepatic lesions, suspicious for malignancy esophageal mass Condition on Discharge: Good Activity: Per Instructions section Bathing Comment: May shower over port site Non-emergency contact: Primary Care Provider and Oncologist Call non-emergency contact if: you have any medication questions Follow-up/Referrals: Maksim Gannon MD, FACS [Physician] - Ant Nieto MD [Primary Care Provider] - Diet: Full liquid Addtl Attending Provider Instructions: You were seen at [facility] for evaluation of left hand weakness. Upon arrival, you underwent a work-up for stroke. You underwent brain imaging, which did show several spots concerning for strokes, likely from a cardiac source. Although your echocardiogram (ultrasound of your heart) did not show any abnormalities, you were noted to be in atrial fibrillation, which is known to be a major risk factor for the types of strokes that you had. [facility] during your work-up, he did undergo chest imaging, which showed several suspicious spots in your liver. Combined with your difficulty swallowing, you underwent an EGD (camera down your throat to look at the esophagus), which did show evidence of a mass at the bottom of your esophagus. Between the liver spots, is well as this mass, the current thought is that these likely represent a neoplastic process. Because the tissue sampled from your esophageal mass did return benign, you underwent a liver biopsy to further characterize any sort of processes that might be occurring. You were followed here by oncology, cardiology, gastroenterology, and the primary hospital team. At the recommendation of oncology, a Mediport was placed to help accelerate any sort of treatments that might be warranted once the liver biopsy returns. You are to follow-up closely with oncology in the outpatient setting to help establish a care plan. Our family caseworker are working to schedule an appointment with them within the next 1 to 2 weeks. Upon your discharge, please note the following medication changes: Please discontinue Xarelto Begin Lovenox 70mg below the skin, twice daily (12 hours apart) -- talk with your primary care physician how long this should be continued Continue metoprolol succinate 150 mg nightly * As discussed - please work with your PCP and GI doctors to determine the best methods of taking some of your medications (e.g., if there are liquid alternatives) Because of your difficulty swallowing, our speech therapist experts have recommended that you continue to utilize a full liquid diet until directed otherwise by your care team. Please follow-up with your primary care provider within 1 week to review this visit. At the time of that visit, please review all medication changes. In the interim, if you experience any of the following: Sudden onset weakness, numbness or tingling, fainting, shortness of breath, chest pain, or any other worrisome symptoms to you, please seek immediate medical attention by calling 911 or reporting to the nearest emergency room. It was a pleasure caring for you while hospitalized at [facility], Please note the following instructions below provided by your surgical team. ---- SPECIAL CARE INSTRUCTIONS: * Cover incisions and change daily for comfort/drainage. * May use ibuprofen for pain as tolerated. * Expect some swelling and bruising. Call your doctor if: * Temperature above 101 degrees * Pain not relieved by pain medicine ordered * There is increased drainage or redness from any incision * You have any unanswered questions or concerns [phone]. FOLLOW UP VISIT: If not already scheduled, please call the office for a follow-up visit. OFFICE PHONE NUMBER: Dr. Gannon Office Your Mediport may be used as early as today Pending Studies at Discharge: Yes Studies:: liver biopsy Stand-Alone Forms: My [facility], Smoking Cessation Medications and DC Order Prescriptions: New enoxaparin [Lovenox] 80 mg/0.8 mL syringe 70 mg subcut Q12H 30 Days Qty: 42 RF: 5 Continued atorvastatin 40 mg tablet 40 mg PO QPM RF: 0 metoprolol succinate 100 mg tablet extended release 24 hr 150 mg PO QPM RF: 0 chlorthalidone 25 mg tablet 12.5 mg PO DAILY RF: 0 lisinopril 40 mg tablet 40 mg PO QPM RF: 0 multivitamin Tablet 1 tab PO QAM RF: 0 cholecalciferol (vitamin D3) [Vitamin D3] 50 mcg (2,000 unit) Tablet 50 mcg PO QAM RF: 0 Vitron-C 65 mg iron- 125 mg Tablet,Delayed Release (Dr/Ec) 1 tab PO QAM RF: 0 Discontinued Xarelto 20 mg tablet 20 mg PO QPM RF: 0 Discharge Orders: Discharge Order (Routine); Ordered 09/13/20 Ordered By: Elias Lowe/Other Patient Handouts: Stroke: Resources and Support, Stroke: Self- Care, Stroke Regaining Movement Admission Data Admit Date/Time: 09/07/20 10:54 Attending Provider: Trinity Palacio Admit Provider: Concetta Hyatt Primary Care Provider: Ant Nieto Other Providers: Elias Hunt ; Dashawn Ambrose ; Frank Little ; Lauren Yeung ; Evens Arroyo ; Sean Go V. ; Maksim Gannon ; Lamonte Landin ; Cuba Landers ; Garett Shukla Jr ; Adebayo Rockwell ; Dylan Rausch ; Caren Renae ; Alli Amor ; Ok Don ; Ciara Augustine ; Diya Sotomayor ; Ayden Ibrahim ; Lela Byrne ; Ollie Bardales ; oGmez Brar ; Juan Domínguez ; Jason Cooper ; Josey Magana ; Kamila Bolaños ; Travon Avalos ; Anton Fleming ; Frank Mahajan ; Adebayo Bowie ; Byron Palacio. Other Interventions: Discharge Summary Assessment (RN) Last Done: 09/13/20 18:05 Supervising Physician Co-Signing Physician Notes Resident Physician Supervision Note: I independently interviewed and examined the patient and verified the luis history and physical, reviewed labs and image studies, discussed the case with the resident Dr. Murillo and agree with the findings and care plan. Time spent in discharge 35 min Resident Activity Tracking Resident Involvement: Resident Care Provided Care Provided: Adult Hospital Medicine
[2020-09-13] MEDS ORDERED: ENOXAPARIN INJ 60 MG/0.6 ML SYR SQ SCH ×2 (14:00→18:30)
[2020-09-13] MEDS ORDERED: STROKE PATIENT DISCHARGE STA (16:43)
[2020-09-13] MEDS ORDERED: ENOXAPARIN 80 MG/0.8 ML SYR SQ SCH (18:30)
--- NOTE | 2020-09-13 20:36 | Pharmacy Report ---
Pharmacist Stroke Counseling - Date of Service September 13, 2020 - Scope: Pharmacy has been consulted to provide medication discharge counseling for this patient admitted with [ischemic stroke] [hemorrhagic stroke] [transient ischemic attack] as per the Pharmacist Discharge Counseling for Stroke Patients Protoc . - Medications on Discharge: Home Medications Medication Instructions Recorded Confirmed Vitron-C 1 tab PO QAM 09/06/20 09/06/20 atorvastatin 40 mg PO QPM 09/06/20 09/06/20 chlorthalidone 12.5 mg PO DAILY 09/06/20 09/06/20 cholecalciferol (vitamin D3) 50 mcg PO QAM 09/06/20 09/06/20 [Vitamin D3] lisinopril 40 mg PO QPM 09/06/20 09/06/20 metoprolol succinate 150 mg PO QPM 09/06/20 09/06/20 multivitamin 1 tab PO QAM 09/06/20 09/06/20 New Rx's Medication Instructions Recorded enoxaparin [Lovenox] 70 mg SUBCUT Q12H 30 Days #42 ml 09/13/20 - Action: The above medications, specifically ones for stroke treatment/prophylaxis, have been reviewed in detail with the patient and/or patient sales and marketing representative(s) prior to discharge. This includes indication, common adverse reactions, drug interactions, and medication administration. Medication counseling has been employed using the teach-back method to ensure understanding. - Outcome: The patient and/or patient sales and marketing representative(s) have demonstrated understanding of the medications. Additional comments: Spoke with patient's sonSuleiman to review medication changes on discharge per patient request. Reviewed that patient is to stop xarelto and to start lovenox. Reviewed basic administration, side effects of medication and dosing of medication. Patient will be receiving lovenox 80 mg syringe size for her dose. Reviewed with patient's son that he must expel drug from syringe to make dosing. Spoke with nurse and she states she will also be providing hands on education with lovenox for patient prior to discharge. Updated MD to correct lovenox syringe size on discharge list. (change to 80 mg size to make up dosing). No other pertinent positives on interview Thank you for allowing pharmacy to be involved in the care of this patient. Please call [phone] with any additional questions
--- NOTE | 2020-09-19 08:25 | Coding Query ---
PRESENT ON ADMISSION QUERY To promote full compliance with coding requirements relating to pateint care, physician participation is requested in all cases of prize coordinator uncertainty. Please assist us with the question(s) below: Please place an X within the parenthesis (x). The following diagnosis(es) listed in this patient's medical record require physician assistance to determine if they were present on admission (POA) or not. Please advise for each diagnosis whether it was present on admission, not present on admission, or if it was clinically undetermined. 1. SEVERE PROTEIN CALORIE MALNUTRITION (documented on Discharge Summary) (x ) Present On Admission ( ) Not Present On Admission ( ) Clinically Undetermined Thank you Myrtle Tinajero *Definition of the present on admission (POA)-Present on admission is defined as present at the time the order for inpatient admission occurs. Conditions that develop during an outpatient encounter prior to a written order for inpatient admission (including emergency department, observation, or outpatient surgery) are considered present on admission. MTDD
== END 2020-09-13 18:47 | disposition home or self-care (01) | DRG 374 ==
LOC: 2S 17:26 → ED 17:26 → SUATTDRO 21:57 → 2S 23:04 → SUATTDRO 09-07 10:54

== ENCOUNTER 2020-09-23 12:57 | Inpatient (IN) ==
[2020-09-23] MEDS ORDERED: ONDANSETRON INJ 2 MG/ML 2 ML VIAL IV STA (13:13)
[2020-09-23] MEDS ORDERED: SODIUM CHLORIDE 0.9% 1000ML 1,000 ML IV SCH (13:15)
[2020-09-23 13:21] LABS: Basophils # (auto) 0.01 K/uL (0-0.2); Basophils % (auto) 0.1 %; Eosinophils # (auto) 0.14 K/uL (0-0.5); Eosinophils % (auto) 0.9 %; Hematocrit (blood only) 25.5 % (37-47); Hemoglobin 8.5 g/dL (12.0-16.0); Immature Granulocytes # (auto) 0.04 K/uL (0.00-0.02); Immature Granulocytes % (auto) 0.2 %; Lymphocytes % (auto) 6.1 %; Mean Corpuscular Hemoglobin 30.1 pg (25-34); Mean Corpuscular Hgb Conc 33.3 g/dL (32-36); Mean Corpuscular Volume 90.4 fL (80-100); Mean Platelet Volume 10.2 fL (7.4-10.4); Monocytes # (auto) 0.94 K/uL (0.11-0.59); Monocytes % (auto) 5.7 %; Neutrophils # (auto) 14.26 K/uL (1.4-6.5); Platelet Count 111 K/uL (130-400); RDW Coefficient of Variation 16.8 % (11.5-14.5); RDW Standard Deviation 55.4 fL (36.4-46.3); Red Blood Count 2.82 M/uL (4.2-5.4); White Blood Count 16.39 K/uL (4.8-10.8)
[2020-09-23 13:27] LABS: INR 1.5 (0.9-1.1); Partial Thromboplastin Ratio 1.6; Partial Thromboplastin Time 42.7 Seconds (21.0-31.0); Prothrombin Time 15.2 Seconds (9.0-12.0)
--- NOTE | 2020-09-23 13:35 | Emergency Department Note ---
Impression & Plan Weakness, Acute dehydration, Painful swallowing, Urinary tract infection ED Provider Note NAME: ANGEL JIMÉNEZ AGE: 85 SEX: F : 1935 ARRIVES VIA: Ambulance INFORMANT: Patient, the patient's daughter ED PROVIDER(S): Evens Garces DO CHIEF COMPLAINT: Generalized weakness HPI: The patient is an 85-year-old female who presented to the emergency department by ambulance at the request of her daughter for an evaluation of gene ralized weakness. The patient was seen in our facility recently. She was having left arm weakness at that time. She was diagnosed with a stroke but while she was at our facility she was also diagnosed with an esophageal mass which is likely neoplastic in nature. She was also diagnosed with spread to the liver. She was found to have atrial fibrillation. She was started on blood thinners. She was able to be discharged to home and outpatient follow-up was scheduled. The patient has had negative Covid tests as well as the COVID-19 vaccine. She presents emergency department today because of generalized weakness and decreased p.o. intake. Further history was obtained from the prehospital personnel. She was given a small fluid bolus prior to arrival. She was also found to have poor skin turgor and tachycardia. According to her daughter she has been compliant with her outpatient medication regimen but is been having increasing difficulty swallowing. She has had no pain with swall owing but notes that when she tries to swallow things want to "come back up". She has no nausea or vomiting at this time. She has had no diarrhea. She has no chest pain or difficulty breathing. The patient's daughter called the primary care physician today and they recommended that the patient come to the emergency department for further evaluation. ROS: See above HPI for pertinent positives & negatives. A total of 10 systems reviewed and were otherwise negative. PAST MEDICAL HISTORY: See Below PAST SURGICAL HISTORY: See Below FAMILY HISTORY: See Below SOCIAL HISTORY: See Below HOME MEDICATIONS: See Below ALLERGIES: See Below VITALS: See Below PHYSICAL EXAMINATION: GENERAL: The patient is awake and alert. She does not appear anxious or uncomfortable. EYES: The conjunctivae are clear. The pupils are round and reactive. EARS, NOSE, MOUTH AND THROAT: The nose is without any evidence of any deformity. Mucous membranes are dry. NECK: The neck is nontender and supple. RESPIRATORY: Normal respiratory effort is noted there is no evidence of wheezing rhonchi or rales CARDIOVASCULAR: Irregular rhythm was noted to auscultation. There was no definite murmur. GASTROINTESTINAL: The abdomen is soft and nondistended. There is right upper quadrant tenderness to palpation but no guarding or rigidity. MUSCULOSKELETAL/EXTREMITIES: There is no evidence of gross deformity full range of motion is noted in the hips and shoulders. SKIN: Skin is warm and dry. Trace pedal edema was noted bilaterally. NEUROLOGIC: Patient is awake alert and oriented x 3. Strength was diminished but symmetric. Patient is able to hold each leg off the bed for greater than 5 seconds. MEDICAL DECISION MAKING: The patient is an 85-year-old female who presented to the emergency department with her daughter for an evaluation. The patient was recently diagnosed with esophageal cancer as well as a stroke. 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 The patient has been having decreased p.o. intake. Her caregiver is her significant other who is also 90 years old. There is significant concern that the patient was not caring for self at home including not eating or drinking well. The patient was treated with IV fluids and IV antibiotics in the emergency department for presumed urinary tract infection. I discussed the patient's laboratory and radiographic studies with the patient as well as her daughter. It does appear that the patient is not necessarily safe to be discharged home given that she is not been caring for self appropriately. This reason I discussed her case with the on-call [facility]. They have agreed to evaluate the patient for further management and disposition. Triage Nursing notes reviewed. Prior medical records reviewed Vital Signs: reviewed and remarkable for tachycardia. Differential diagnosis: Infection, dehydration, metabolic abnormality, hypo/hyperglycemia, electrolyte disturbance, anemia, hypoxia, cardiac sources, intracerebral event, toxicologic, neurologic, as well as other pathologies. ER treatment provided: See below Diagnostics interpreted by me: ECG: EKG was obtained in the emergency department. My interpretation is atrial fibrillation at 113 bpm. There was no ectopy. Diffuse ST segment depressions were noted. This was compared to a tracing from September 062020. No significant changes were noted. Cardiac Monitoring: An order was placed for continuous cardiac monitoring. The monitor shows a rate of 115 bpm with atrial fibrillation rhythm. Laboratory studies: As stated above and show below. Imaging studies: See below Consultation(s): I discussed this case with Dr. Orozco who is on-call for the [facility] group. He will evaluate the patient in the emergency department for further management Past Med/Surg History Medical History Anticoagulated by anticoagulation treatment Anxiety Chronic gastritis Colloid thyroid nodule Diverticulosis Dysphagia Elevated troponin History of DVT (deep vein thrombosis) History of pulmonary embolism Hyperlipidemia Hypertension Iron deficiency anemia Mitral valve prolapse Unintentional weight loss Surgical History H/O breast biopsy History of esophagogastroduodenoscopy (EGD) Family History Sister Dementia Diabetes Heart disease Macular degeneration Osteoporosis Son Asthma Mother Macular degeneration Social History Smoking Status: Never smoker Hx Alcohol Use: Yes Alcohol type: wine Alcohol type Comment: socially w/ family Hx Substance Use: No Preferred Language: Colombian Communication Ability: Effective Bending Roll Hand Required: No Beliefs That Will Affect Care: None marital status: Current Living Situation: Spouse Other Information That Helps Us Care for You: No Feels Safe at Home: Yes Safety Concerns: Feels Safe At This Time Assistive Devices: None Allergies Allergies Allergy/AdvReac Type Severity Reaction Status Date / Time No Known Allergies Allergy Verified 09/23/20 14:26 Home Meds Home Medications Medication Instructions Recorded Confirmed Vitron-C 1 tab PO QAM 09/06/20 09/23/20 atorvastatin 40 mg PO QPM 09/06/20 09/23/20 chlorthalidone 12.5 mg PO QAM 09/06/20 09/23/20 cholecalciferol (vitamin D3) 50 mcg PO QAM 09/06/20 09/23/20 [Vitamin D3] lisinopril 40 mg PO QPM 09/06/20 09/23/20 metoprolol succinate 150 mg PO QPM 09/06/20 09/23/20 multivitamin 1 tab PO QAM 09/06/20 09/23/20 famotidine 5 ml PO HS 09/23/20 09/23/20 Previous Rx's Medication Instructions Recorded enoxaparin [Lovenox] 70 mg SUBCUT Q12H 30 Days #42 ml 09/13/20 Results & Data (ED) Vital Signs Vital Signs - 24 hr 09/23/20 13:02 09/23/20 13:03 09/23/20 13:12 Temperature 36.8 C Temperature Source Temporal Artery Scan Pulse Rate 114 H 129 H Pulse Rate from SpO2 Sensor 124 H Respiratory Rate 25 H 16 Respiratory Effort / Characteristics Non-Labored Respiratory Depth Normal Respiratory Pattern Regular Blood Pressure 126/78 126/78 Blood Pressure Mean 94 94 Blood Pressure Position Sitting Pulse Oximetry 98 98 98 Oxygen Delivery Method Room Air Room Air Sepsis Recent Fever Within 48 Hours No Sepsis New/Unexplained Change in Mental Status N/A Sepsis Action Taken by Nursing No Action Required 09/23/20 13:30 09/23/20 14:30 09/23/20 15:00 Temperature Temperature Source Pulse Rate 109 H 124 H 117 H Pulse Rate from SpO2 Sensor 108 H 122 H 121 H Respiratory Rate 25 H 23 22 Respiratory Effort / Characteristics Respiratory Depth Respiratory Pattern Blood Pressure 113/63 106/67 121/81 Blood Pressure Mean 79 80 94 Blood Pressure Position Pulse Oximetry 98 97 93 Oxygen Delivery Method Sepsis Recent Fever Within 48 Hours Sepsis New/Unexplained Change in Mental Status Sepsis Action Taken by Nursing 09/23/20 15:30 09/23/20 16:00 Temperature Temperature Source Pulse Rate 109 H 112 H Pulse Rate from SpO2 Sensor 105 H 108 H Respiratory Rate 24 23 Respiratory Effort / Characteristics Respiratory Depth Respiratory Pattern Blood Pressure 106/64 112/73 Blood Pressure Mean 78 86 Blood Pressure Position Pulse Oximetry 96 96 Oxygen Delivery Method Sepsis Recent Fever Within 48 Hours Sepsis New/Unexplained Change in Mental Status Sepsis Action Taken by Long Term Medications Current Medication List: was personally reviewed by me Laboratory Data Attestation: I reviewed the patient's lab results. Result diagrams: 09/23/20 13:05 09/23/20 13:05 Lab Results 09/23/20 09/23/20 09/23/20 Range/Units 13:05 13:05 13:05 WBC 16.39 H (4.8-10.8) K/uL RBC 2.82 L (4.2-5.4) M/uL Hgb 8.5 L (12.0-16.0) g/dL Hct 25.5 L (37-47) % MCV 90.4 (80-100) fL MCH 30.1 (25-34) pg MCHC 33.3 (32-36) g/dL RDW Std Deviation 55.4 H (36.4-46.3) fL RDW Coeff of Ananth 16.8 H (11.5-14.5) % Plt Count 111 L (130-400) K/uL MPV 10.2 (7.4-10.4) fL Immature Gran % (Auto) 0.2 % Neut % (Auto) 87.0 % Lymph % (Auto) 6.1 % Nelson % (Auto) 5.7 % Eos % (Auto) 0.9 % Baso % (Auto) 0.1 % Neut # (Auto) 14.26 H (1.4-6.5) K/uL Lymph # (Auto) 1.00 L (1.2-3.4) K/uL Nelson # (Auto) 0.94 H (0.11-0.59) K/uL Eos # (Auto) 0.14 (0-0.5) K/uL Baso # (Auto) 0.01 (0-0.2) K/uL Immature Gran # (Auto) 0.04 H (0.00-0.02) K/uL PT 15.2 H (9.0-12.0) Seconds INR 1.5 H (0.9-1.1) APTT 42.7 H (21.0-31.0) Seconds PTT Ratio 1.6 Sodium 136 (136-145) mmol/L Potassium 3.9 (3.5-5.1) mmol/L Chloride 103 (98-107) mmol/L Carbon Dioxide 26 (21-32) mmol/L Anion Gap 7.0 (3-11) BUN 26 H (7-18) mg/dl Creatinine 1.03 (0.6-1.2) mg/dl Est Cr Clr Drug Dosing 35.1 ml/min Est GFR ( Amer) 57.8 Est GFR (Non-Af Amer) 49.9 BUN/Creatinine Ratio 24.9 H (10-20) Glucose 108 H (70-99) mg/dl Calcium 9.2 (8.5-10.1) mg/dl Phosphorus (2.5-4.9) mg/dl Magnesium 2.3 (1.8-2.4) mg/dl Total Bilirubin 1.5 H (0.2-1) mg/dl AST 104 H (15-37) U/L ALT 39 (12-78) U/L Alkaline Phosphatase 186 H (45-117) U/L Total Creatine Kinase 40 (26-192) U/L Troponin I 0.113 H* (0-0.045) ng/ml Total Protein 6.0 L (6.4-8.2) gm/dl Albumin 1.9 L (3.4-5.0) gm/dl Globulin 4.1 H (2.5-4.0) gm/dl Albumin/Globulin Ratio 0.5 L (0.9-2) TSH 1.570 (0.300-4.500) uIu/ml Urine Color Urine Appearance (Clear) Urine pH (4.5-7.5) Ur Specific [place] (1.000-1.030) Urine Protein (Negative) Urine Glucose (UA) (Negative) Urine Ketones (Negative) Urine Blood (Negative) Urine Nitrite (Negative) Urine Bilirubin (Negative) Urine Urobilinogen (Negative) Ur Leukocyte Esterase (Negative) Urine WBC (Auto) (0-5) /hpf Urine RBC (Auto) (0-4) /hpf U Hyaline Cast (Auto) (0-5) /lpf U Epithel Cells (Auto) (0-5) /lpf Urine Bacteria (Auto) (Negative) COVID-19 Eval Order SARS-CoV-2, RNA, NAAT (NEGATIVE) 09/23/20 09/23/20 09/23/20 Range/Units 13:05 15:10 15:10 WBC (4.8-10.8) K/uL RBC (4.2-5.4) M/uL Hgb (12.0-16.0) g/dL Hct (37-47) % MCV (80-100) fL MCH (25-34) pg MCHC (32-36) g/dL RDW Std Deviation (36.4-46.3) fL RDW Coeff of Ananth (11.5-14.5) % Plt Count (130-400) K/uL MPV (7.4-10.4) fL Immature Gran % (Auto) % Neut % (Auto) % Lymph % (Auto) % Nelson % (Auto) % Eos % (Auto) % Baso % (Auto) % Neut # (Auto) (1.4-6.5) K/uL Lymph # (Auto) (1.2-3.4) K/uL Nelson # (Auto) (0.11-0.59) K/uL Eos # (Auto) (0-0.5) K/uL Baso # (Auto) (0-0.2) K/uL Immature Gran # (Auto) (0.00-0.02) K/uL PT (9.0-12.0) Seconds INR (0.9-1.1) APTT (21.0-31.0) Seconds PTT Ratio Sodium (136-145) mmol/L Potassium (3.5-5.1) mmol/L Chloride (98-107) mmol/L Carbon Dioxide (21-32) mmol/L Anion Gap (3-11) BUN (7-18) mg/dl Creatinine (0.6-1.2) mg/dl Est Cr Clr Drug Dosing ml/min Est GFR ( Amer) Est GFR (Non-Af Amer) BUN/Creatinine Ratio (10-20) Glucose (70-99) mg/dl Calcium (8.5-10.1) mg/dl Phosphorus 2.6 (2.5-4.9) mg/dl Magnesium (1.8-2.4) mg/dl Total Bilirubin (0.2-1) mg/dl AST (15-37) U/L ALT (12-78) U/L Alkaline Phosphatase (45-117) U/L Total Creatine Kinase (26-192) U/L Troponin I (0-0.045) ng/ml Total Protein (6.4-8.2) gm/dl Albumin (3.4-5.0) gm/dl Globulin (2.5-4.0) gm/dl Albumin/Globulin Ratio (0.9-2) TSH (0.300-4.500) uIu/ml Urine Color Urine Appearance (Clear) Urine pH (4.5-7.5) Ur Specific [place] (1.000-1.030) Urine Protein (Negative) Urine Glucose (UA) (Negative) Urine Ketones (Negative) Urine Blood (Negative) Urine Nitrite (Negative) Urine Bilirubin (Negative) Urine Urobilinogen (Negative) Ur Leukocyte Esterase (Negative) Urine WBC (Auto) (0-5) /hpf Urine RBC (Auto) (0-4) /hpf U Hyaline Cast (Auto) (0-5) /lpf U Epithel Cells (Auto) (0-5) /lpf Urine Bacteria (Auto) (Negative) COVID-19 [facility] SARS-[facility]-2, RNA, NAAT NEGATIVE (NEGATIVE) 09/23/20 Range/Units 15:13 WBC (4.8-10.8) K/uL RBC (4.2-5.4) M/uL Hgb (12.0-16.0) g/dL Hct (37-47) % MCV (80-100) fL MCH (25-34) pg MCHC (32-36) g/dL RDW Std Deviation (36.4-46.3) fL RDW Coeff of Ananth (11.5-14.5) % Plt Count (130-400) K/uL MPV (7.4-10.4) fL Immature Gran % (Auto) % Neut % (Auto) % Lymph % (Auto) % Nelson % (Auto) % Eos % (Auto) % Baso % (Auto) % Neut # (Auto) (1.4-6.5) K/uL Lymph # (Auto) (1.2-3.4) K/uL Nelson # (Auto) (0.11-0.59) K/uL Eos # (Auto) (0-0.5) K/uL Baso # (Auto) (0-0.2) K/uL Immature Gran # (Auto) (0.00-0.02) K/uL PT (9.0-12.0) Seconds INR (0.9-1.1) APTT (21.0-31.0) Seconds PTT Ratio Sodium (136-145) mmol/L Potassium (3.5-5.1) mmol/L Chloride (98-107) mmol/L Carbon Dioxide (21-32) mmol/L Anion Gap (3-11) BUN (7-18) mg/dl Creatinine (0.6-1.2) mg/dl Est Cr Clr Drug Dosing ml/min Est GFR ( Amer) Est GFR (Non-Af Amer) BUN/Creatinine Ratio (10-20) Glucose (70-99) mg/dl Calcium (8.5-10.1) mg/dl Phosphorus (2.5-4.9) mg/dl Magnesium (1.8-2.4) mg/dl Total Bilirubin (0.2-1) mg/dl AST (15-37) U/L ALT (12-78) U/L Alkaline Phosphatase (45-117) U/L Total Creatine Kinase (26-192) U/L Troponin I (0-0.045) ng/ml Total Protein (6.4-8.2) gm/dl Albumin (3.4-5.0) gm/dl Globulin (2.5-4.0) gm/dl Albumin/Globulin Ratio (0.9-2) TSH (0.300-4.500) uIu/ml Urine Color [place] Urine Appearance Turbid A (Clear) Urine pH 5.5 (4.5-7.5) Ur Specific Duson 1.019 (1.000-1.030) Urine Protein 1+ H (Negative) Urine Glucose (UA) Negative (Negative) Urine Ketones Trace H (Negative) Urine Blood 1+ H (Negative) Urine Nitrite Positive A (Negative) Urine Bilirubin Negative (Negative) Urine Urobilinogen Negative (Negative) Ur Leukocyte Esterase 2+ H (Negative) Urine WBC (Auto) >30 H (0-5) /hpf Urine RBC (Auto) 5-10 H (0-4) /hpf U Hyaline Cast (Auto) 1-5 (0-5) /lpf U Epithel Cells (Auto) 10-20 H (0-5) /lpf Urine Bacteria (Auto) 3+ H (Negative) COVID-19 Eval Order SARS-CoV-2, RNA, NAAT (NEGATIVE) Administered Medications Potassium Chloride/Dextrose/Sod Cl (D5nss + 20meq Kcl) 20 meq in 1,000 mls @ 125 mls/hr IV .Q8H CAMERON Stop: 09/24/20 10:59 Last Admin: 09/23/20 19:16 Dose: 125 mls/hr Documented by: [id number] Discontinued Medications Sodium Chloride (Nss 1000ml) 1,000 mls @ 999 mls/hr IV .Q1H1M CAMERON Stop: 09/23/20 14:15 Last Infusion: 09/23/20 15:27 Dose: 0 mls/hr Documented by: [id number] Admin: 09/23/20 13:30 Dose: 999 mls/hr Documented by: [id number] Ceftriaxone Sodium (Rocephin) 1,000 mg in 50 mls @ 100 mls/hr IV NOW STA Stop: 09/23/20 16:38 Last Infusion: 09/23/20 18:26 Dose: 0 mls/hr Documented by: [id number] Admin: 09/23/20 17:14 Dose: 100 mls/hr Documented by: [id number] Magnesium Sulfate/Dextrose (Magnesium Sulfate / D5w) 1 gm in 100 mls @ 50 mls/hr IV ONE ONE Stop: 09/23/20 18:09 Last Admin: 09/23/20 17:14 Dose: Not Given Documented by: [id number] Famotidine (Pepcid 20mg Iv Push) 20 mg in 5 mls @ 2.5 mls/min IV NOW STA Stop: 09/23/20 16:16 Last Admin: 09/23/20 17:15 Dose: 2.5 mls/min Documented by: [id number] Sodium Chloride (Nss 1000ml) 1,000 mls @ 999 mls/hr IV .Q1H1M ONE Stop: 09/23/20 17:48 Last Admin: 09/23/20 18:20 Dose: Not Given Documented by: [id number] Ondansetron HCl (Ondansetron Inj 2 Mg/Ml 2 Ml Vial) 4 mg IV NOW STA Stop: 09/23/20 13:14 Last Admin: 09/23/20 13:30 Dose: 4 mg Documented by: [id number] Imaging Data Radiologist's Impression: Patient: ANGEL JIMÉNEZ Date: 09/23/20#: [id number]: [id number] [facility] [address]Acct ID:[id number]: Date: [facility] Zip: [place], [place] [address]Fpx: 85Location: EDSex: FRoom/Bed:Att Phy:Diagnosis: WEAKNESSPri Phy: Ant Nieto M.D.Service Date: 09/23/20Fam Phy:Interpreting Phy: Juan Domínguez MDAdmit Phy: Ordering Phy: Evens Garces DO cc: ~ CT SCAN OF THE ABDOMEN AND PELVIS WITHOUT CONTRAST CLINICAL HISTORY: RUQ pain, nausea COMPARISON STUDY: 09/08/2020 TECHNIQUE: CT scan of the abdomen and pelvis was performed from the lung bases to the proximal femurs. Images are reviewed in the axial, sagittal, and coronal planes. IV contrast was not administered for this examination. A dose lowering technique was utilized adhering to the principles of ALARA. CT DOSE: FINDINGS: Lower chest: The heart is enlarged. There are small bilateral pleural effusions. There is a moderate to large hiatal hernia. There is thickening of the gastroesophageal junction. A mass cannot be excluded. There are small perie sophageal/perigastric lymph nodes. Liver: There are innumerable space occupying hepatic masses suspicious for metastatic disease. There is trace perihepatic fluid. Gallbladder: Mildly distended. No calculi identified. Spleen: Normal in size and attenuation. Pancreas: Unremarkable. Adrenal glands: Unremarkable. Kidneys: No renal, ureteral, or bladder calculi are visualized. Bowel: There are no transition zones to indicate bowel obstruction. There is colonic diverticulosis. There is no evidence of acute diverticulitis. There are no findings to indicate acute appendicitis. Peritoneum: There is low volume ascites. There is no free intraperitoneal air. Vasculature: The abdominal aorta is normal in course and caliber. Adenopathy: None. Pelvic viscera: There is a 324mm right adnexal cyst likely ovarian Skeletal structures: No destructive osseous lesions are seen. 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 No evidence of bowel obstruction. No evidence of free air 2. Small bilateral pleural effusions 3. Innumerable space occupying hepatic masses suspicious for metastatic disease 3. Hiatal hernia with possible GE junction mass 5. Low volume ascites 6. 34 mm right adnexal cystic lesion likely ovarian ACT 112: Negative or not required by law. Electronically signed by: Juan Domínguez M.D. 09/23/2020 2:39 PM Dictated: 09/23/20 143Transcribed: 09/23/20 143 Patient: ANGEL JIMÉNEZ Date: 09/23/20MR#: [id number]: [address]Acct ID:[id number]: Date: [facility] Zip: [place], [place] [address]Nzn: 85Location: EDSex: FRoom/Bed:Att Phy:Diagnosis: WEAKNESSPri Phy: Ant Nieto M.D.Service Date: Fam Phy:Interpreting Phy: Juan Domínguez MDAit Phy: Ordering Phy: Evens Garces DO cc: ~ CT head/brain wo con CLINICAL HISTORY: Neck and weakness COMPARISON STUDY: September 06, 2020, MRI dated September 07, 2020 TECHNIQUE: Axial CT of the brain is performed from the vertex to the skull base. IV contrast was not administered for this examination. A dose lowering technique was utilized adhering to the principles of ALARA. CT DOSE: 1018.60 mGy.cm FINDINGS: No intra or extra-axial mass lesions are visualized. There is no CT evidence of acute cortical infarction. There is no evidence of midline shift. There is no acute hemorrhage. No calvarial fractures are visualized. There are patchy white matter hypodensities likely on a small vessel basis. There are scattered lacunar infarcts. There is no evidence of pathologic ventricular dilatation. There is no evidence of acute sinusitis There is a 15 mm right parotid gland nodule IMPRESSION: 1. No acute intracranial findings 2. 15 mm right parotid gland nodule ACT 112: Negative or not required by law. Electronically signed by: Juan Domínguez M.D. 09/23/2020 2:26 PM Dictated: 09/23/201423Transcribed: 09/23/201423 Patient: ANGEL JIMÉNEZ Date: 09/23/20MR#: [id number]: [address] [facility] [address]Acct ID:[id number]: Date: [facility] Zip: [place], [place] [address]Ojo: 85Location: EDSex: FRoom/Bed:Att Phy:Diagnosis: WEAKNESSPri Phy: Ant Nieto M.D.Service Date: 1Fam Phy:Interpreting Phy: Juan Domínguez MDAdmit Phy: Ordering Phy: Evens Garces DO cc: ~ XR chest 1V portable CLINICAL HISTORY: weakness COMPARISON STUDY: 09/13/2020 FINDINGS: The heart is borderline enlarged. There is aortic tortuosity/ectasia. There is a retrocardiac opacity consistent with a hiatal hernia. There is stable mild interstitial thickening. There is no lobar consolidation. The left subclavian A-Port catheter remains unchanged in position.[ IMPRESSION: 1. Stable aortic tortuosity/ectasia 2. Hiatal hernia 3. Stable mild interstitial thickening. No evidence of lobar consolidation ACT 112: Negative or not required by law. Electronically signed by: Juan Domínguez M.D. 09/23/2020 1:49 PM Dictated: 09/23/20 1348Transcribed: 09/23/20 1348 Discharge Plan Visit Data Chief Complaint: Weakness ED Provider: Evens Garces Discharge Problem: Weakness, Acute dehydration, Painful swallowing, Urinary tract infection Patient Disposition: Admitted As Inpatient Discharge Instructions Interventions: ED Discharge Assessment Last Done: 09/23/20 18:23 Discharge Problem: Urinary tract infection Qualifiers: Urinary tract infection type: site unspecified Hematuria presence: without hematuria Qualified Code(s): N39.0 - Urinary tract infection, site not specified
[2020-09-23 13:39] LABS: Albumin Level 1.9 gm/dl (3.4-5.0); BUN Creatinine Ratio 24.9 (10-20); Calcium 9.2 mg/dl (8.5-10.1); Creatinine Clr Calc Pharmacy 35.1 ml/min; Est GFR (African American) 57.8; Est GFR (Non-African American) 49.9; Magnesium 2.3 mg/dl (1.8-2.4); Potassium 3.9 mmol/L (3.5-5.1)
[2020-09-23 13:51] LABS: Albumin Globulin Ratio 0.5 (0.9-2); Bilirubin,Total 1.5 mg/dl (0.2-1); Globulin 4.1 gm/dl (2.5-4.0); Thyroid Stimulating Hormone 1.57 uIu/ml (0.300-4.500); Troponin I 0.113 ng/ml (0-0.045)
--- NOTE | 2020-09-23 13:51 | XRay Report ---
XR chest 1V portable CLINICAL HISTORY: weakness COMPARISON STUDY: 09/13/2020 FINDINGS: The heart is borderline enlarged. There is aortic tortuosity/ectasia. There is a retrocardi ac opacity consistent with a hiatal hernia. There is stable mild interstitial thickening. There is no lobar consolidation. The left subclavian A-Port catheter remains unchanged in position.[ IMPRESSION: 1. Stable aortic tortuosity/ectasia 2. Hiatal hernia 3. Stable mild interstitial thickening. No evidence of lobar consolidation ACT 112: Negative or not required by law. Electronically signed by: Juan Domínguez M.D. 09/23/2020 1:49 PM
--- NOTE | 2020-09-23 14:27 | CT Scan Report ---
CT head/brain wo con CLINICAL HISTORY: Neck and weakness COMPARISON STUDY: September 06, 2020, MRI dated September 07, 2020 TECHNIQUE: Axial CT of the brain is performed from the vertex to the skull base. IV contrast was not administered for this examination. A dose lowering technique was utilized adhering to the principles of ALARA. CT DOSE: 1018.60 mGy.cm FINDINGS: No intra or extra-axial mass lesions are visualized. There is no CT evidence of acute cortical infarc tion. There is no evidence of midline shift. There is no acute hemorrhage. No calvarial fractures ar e visualized. There are patchy white matter hypodensities likely on a small vessel basis. There are scattered lacun ar infarcts. There is no evidence of pathologic ventricular dilatation. There is no evidence of acute sinusitis There is a 15 mm right parotid gland nodule IMPRESSION: 1. No acute intracranial findings 2. 15 mm right parotid gland nodule ACT 112: Negative or not required by law. Electronically signed by: Juan Domínguez M.D. 09/23/2020 2:26 PM
--- NOTE | 2020-09-23 14:40 | CT Scan Report ---
CT SCAN OF THE ABDOMEN AND PELVIS WITHOUT CONTRAST CLINICAL HISTORY: RUQ pain, nausea COMPARISON STUDY: 09/08/2020 TECHNIQUE: CT scan of the abdomen and pelvis was performed from the lung bases to the proximal femurs . Images are reviewed in the axial, sagittal, and coronal planes. IV contrast was not administered fo r this examination. A dose lowering technique was utilized adhering to the principles of ALARA. CT DOSE: FINDINGS: Lower chest: The heart is enlarged. There are small bilateral pleural effusions. There is a moderate to large hiatal hernia. There is thickening of the gastroesophageal junction. A mass cannot be exclud ed. There are small periesophageal/perigastric lymph nodes. Liver: There are innumerable space occupying hepatic masses suspicious for metastatic disease. There is trace perihepatic fluid. Gallbladder: Mildly distended. No calculi identified. Spleen: Normal in size and attenuation. Pancreas: Unremarkable. Adrenal glands: Unremarkable. Kidneys: No renal, ureteral, or bladder calculi are visualized. Bowel: There are no transition zones to indicate bowel obstruction. There is colonic diverticulosis. There is no evidence of acute diverticulitis. There are no findings to indicate acute appendicitis. Peritoneum: There is low volume ascites. There is no free intraperitoneal air. Vasculature: The abdominal aorta is normal in course and caliber. Adenopathy: None. Pelvic viscera: There is a 324mm right adnexal cyst likely ovarian Skeletal structures: No destructive osseous lesions are seen. 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 No evidence of bowel obstruction. No evidence of free air 2. Small bilateral pleural effusions 3. Innumerable space occupying hepatic masses suspicious for metastatic disease 3. Hiatal hernia with possible GE junction mass 5. Low volume ascites 6. 34 mm right adnexal cystic lesion likely ovarian ACT 112: Negative or not required by law. Electronically signed by: Juan Domínguez M.D. 09/23/2020 2:39 PM
[2020-09-23 15:31] LABS: Appearance Urine Turbid (Clear); Bacteria Urine Automated 3+ (Negative); Bilirubin Urine Negative (Negative); Blood Urine 1+ (Negative); Color Urine Orange; Glucose Urine UA Negative (Negative); Ketones Urine Trace (Negative); Leukocyte Esterase Urine 2+ (Negative); Nitrite Urine Positive (Negative); Protein Urine 1+ (Negative); Specific Gravity Urine 1.019 (1.000-1.030); Urobilinogen Urine Negative (Negative); WBC Urine Automated >30 /hpf (0-5); pH Urine 5.5 (4.5-7.5)
[2020-09-23] MEDS ORDERED: cefTRIAXone SODIUM 1,000 MG/50 ML BAG IV STA (16:09)
[2020-09-23] MEDS ORDERED: MAGNESIUM SULFATE / D5W 1 GM/100 ML BAG IV ONE (16:10)
--- NOTE | 2020-09-23 16:14 | History & Physical Report ---
Date of Service September 23, 2020 Assessment & Plan (1) Bacteria in urine: Unclear if grossly positive UA represents a true infection however worthwhile to treat as her other problems are much harder to reverse. Follow-up urine and blood cultures Ceftriaxone 1 g IV daily (2) Esophageal mass: Progressive worsening dysphagia. Will consult GI to assess need for esophageal stent. Speech consult for dysphagia Switch famotidine from PO to IV (3) Acute dehydration: IV fluids overnight with repeat BMP in AM (4) History of CVA (cerebrovascular accident): Continue Lovenox 70mg SQ BID Given progressively worsening weakness will hold her usual atorvastatin (5) Leukocytosis: ?secondary to UTI vs. esophageal mass Trend with AM labs (6) Iron deficiency anemia: Mild drop in Hgb from 9.1 last admission to 8.5 today. Trend with CBC tomorrow. Patient denies any melena or bright red blood in stool Continue ferrous sulphate 325mg PO daily (7) Hypertension: Hold chlorthalidone in setting of dehydration Hold lisinopril in setting of relative hypotension Continue metoprolol succinate with hold parameters (8) Atrial fibrillation with rapid ventricular response: Continue metoprolol Anticoagulation with Lovenox as above (9) DVT prophylaxis: Patient will continue on her usual therapeutic Lovenox injections Admission and Anticipated Discharge Date Admission Date: 09/24/2020 History of Present Illness Primary Care Provider: Ant Nieto MD Rosie De Guzman is an 85-year-old female who presents to the ER with difficulty swallowing after 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 She was seen with her daughter who provides much of the history. After her discharge 10 days ago she reports slowly progressively worsening fatigue and dysphagia with nausea and vomiting. She feels food will get lodged in her esophagus even on a pure liquid diet and will vomit after around 20 minutes She has a complex recent history with hospitalization from September 06- due to left hand weakness with subsequent stroke workup showing several infarcts concerning for cardioembolic source despite Xarelto use. She was switched to Lovenox injections. In addition she was worked up for dysphagia and weight loss with fungating mass found in esophagus and subsequent workup concerning for metastatic disease. Esophageal biopsies were benign however subsequent liver biopsies confirmed adenocarcinoma and esophageal mass still suspected to be cancerous. She had a port placement and is due to follow up with her oncologist tomorrow regarding possible salvage chemotherapy. In the ER UA grossly positive for infection. Other than fatigue she denies any definitive urinary symptoms such as lower abdominal or flank pain, fever, chills, dysuria, change in urine smell/frequency/color. She was referred to medicine for admission and ongoing management of dehydration and weakness. Allergies Allergy/AdvReac Type Severity Reaction Status Date / Time No Known Allergies Allergy Verified 09/23/20 14:26 Home Medications Medication Instructions Recorded Confirmed Type Vitron-C 1 tab PO QAM 09/06/20 09/23/20 History atorvastatin 40 mg PO QPM 09/06/20 09/23/20 History chlorthalidone 12.5 mg PO QAM 09/06/20 09/23/20 History cholecalciferol (vitamin D3) 50 mcg PO QAM 09/06/20 09/23/20 History [Vitamin D3] lisinopril 40 mg PO QPM 09/06/20 09/23/20 History metoprolol succinate 150 mg PO QPM 09/06/20 09/23/20 History multivitamin 1 tab PO QAM 09/06/20 09/23/20 History enoxaparin [Lovenox] 70 mg SUBCUT Q12H 30 Days #42 ml 09/13/20 09/23/20 Rx famotidine 5 ml PO HS 09/23/20 09/23/20 History Past Med/Surg History Medical History Anticoagulated by anticoagulation treatment Anxiety Chronic gastritis Colloid thyroid nodule Diverticulosis Dysphagia Elevated troponin History of DVT (deep vein thrombosis) History of pulmonary embolism Hyperlipidemia Hypertension Iron deficiency anemia Mitral valve prolapse Unintentional weight loss Surgical History H/O breast biopsy History of esophagogastroduodenoscopy (EGD) Family History Sister Dementia Diabetes Heart disease Macular degeneration Osteoporosis Son Asthma Mother Macular degeneration Social History Smoking Status: Never smoker Hx Alcohol Use: Yes Alcohol type: wine Alcohol type Comment: socially w/ family Hx Substance Use: No Preferred Language: Slovenian Communication Ability: Effective 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 Beliefs That Will Affect Care: None marital status: Current Living Situation: Spouse Other Information That Helps Us Care for You: No Feels Safe at Home: Yes Safety Concerns: Feels Safe At This Time Assistive Devices: None Review of Systems Review of Systems: All systems reviewed & are unremarkable except as noted in HPI & below Constitutional: + fatigue and + weight loss Physical Exam Constitutional: well developed and + cachectic; no acute distress Eyes: + anicteric sclerae; normal pupil size ENMT: external ear and nose normal, oropharynx normal Neck: trachea midline Respiratory: normal respiratory effort, lungs clear to auscultation Cardiovascular: Rate/Rhythm: + tachycardic and + irregularly irregular Heart Sounds: no murmur Extremities: normal capillary refill and + pedal edema Gastrointestinal (Abdomen): normal bowel sounds, soft, nontender, no hepatosplenomegaly Inspection/Auscultation: + abdomen distended Musculoskeletal: no cyanosis or clubbing, extremities motor strength 5/5 Skin: no rashes, warm and dry Neurologic: moves all extremities, + focal motor deficit (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 No acute intracranial findings 2. 15 mm right parotid gland nodule XR chest 1V portable IMPRESSION: 1. Stable aortic tortuosity/ectasia 2. Hiatal hernia 3. Stable mild interstitial thickening. No evidence of lobar consolidation CT SCAN OF THE ABDOMEN AND PELVIS WITHOUT CONTRAST IMPRESSION: 1. No evidence of bowel obstruction. No evidence of free air 2. Small bilateral pleural effusions 3. Innumerable space occupying hepatic masses suspicious for metastatic disease 3. Hiatal hernia with possible GE junction mass 5. Low volume ascites 6. 34 mm right adnexal cystic lesion likely ovarian Medications Administered ER Medications Given: NSS 1L bolus Ondansetron 4mg IV ECG Indication: other (Generalized weakness) Rate (beats per minute): 113 Rhythm: atrial fibrillation Findings: no acute ischemic change Comparison ECG Date: from (September 06, 2020) Change: the following changes noted (T wave flattening replaced TWI anteriorly) Code Status & VTE Plan Code Status DNR/DNI VTE Prophylaxis Plan VTE Prophylaxis will be ordered: Yes PG Care Time/CCT Total # of Minutes Spent Total Time Spent with Patient: Total time spent is greater than 50% in coordination of care (as documented) at patient's floor/unit and/or counseling patient: Coding Level of Care Code 17542 Initial Inpt Care Lvl 3 Diagnoses Bacteria in urine R82.71 Esophageal mass K22.8 Acute dehydration E86.0 History of CVA (cerebrovascular accident) Z86.73 Leukocytosis D72.829 Iron deficiency anemia D50.9 Hypertension I10 Atrial fibrillation with rapid ventricular response I48.91 DVT prophylaxis Z29.9
[2020-09-23] MEDS ORDERED: FAMOTIDINE 20MG IV PUSH 20 MG/5 ML SYR IV STA (16:15)
[2020-09-23] MEDS ORDERED: SODIUM CHLORIDE 0.9% 1000ML 1,000 ML IV ONE (16:48)
[2020-09-23] MEDS ORDERED: ONDANSETRON INJ 2 MG/ML 2 ML VIAL IV PRN (18:13)
[2020-09-23] MEDS ORDERED: ACETAMINOPHEN 325 MG TAB PO PRN (18:13)
[2020-09-23] MEDS: D5NSS + 20MEQ KCL 20 MEQ/1,000 ML BAG IV SCH (19:16)
[2020-09-23] MEDS: ENOXAPARIN 80 MG/0.8 ML SYR SQ SCH (21:00)
[2020-09-24] MEDS ORDERED: HEPARIN 100 UNIT/ML 5ML FLUSH FLUSH PRN (00:22)
[2020-09-24] MEDS: D5NSS + 20MEQ KCL 20 MEQ/1,000 ML BAG IV SCH (03:10)
[2020-09-24 07:55] LABS: Basophils # (auto) 0.01 K/uL (0-0.2); Eosinophils # (auto) 0.22 K/uL (0-0.5); Hematocrit (blood only) 29.2 % (37-47); Hemoglobin 9.4 g/dL (12.0-16.0); Immature Granulocytes # (auto) 0.09 K/uL (0.00-0.02); Immature Granulocytes % (auto) 0.4 %; Lymphocytes # (auto) 1.46 K/uL (1.2-3.4); Lymphocytes % (auto) 6.6 %; Mean Corpuscular Hemoglobin 29.7 pg (25-34); Mean Corpuscular Hgb Conc 32.2 g/dL (32-36); Mean Corpuscular Volume 92.4 fL (80-100); Mean Platelet Volume 10.5 fL (7.4-10.4); Monocytes # (auto) 1.37 K/uL (0.11-0.59); Monocytes % (auto) 6.1 %; Neutrophils # (auto) 19.14 K/uL (1.4-6.5); Neutrophils % (auto) 85.9 %; Platelet Count 106 K/uL (130-400); RDW Coefficient of Variation 17.2 % (11.5-14.5); RDW Standard Deviation 57.1 fL (36.4-46.3); Red Blood Count 3.16 M/uL (4.2-5.4); White Blood Count 22.29 K/uL (4.8-10.8)
[2020-09-24 08:28] LABS: Albumin Level 1.8 gm/dl (3.4-5.0); BUN Creatinine Ratio 21.4 (10-20); Calcium 8.7 mg/dl (8.5-10.1); Creatinine Clr Calc Pharmacy 35.3 ml/min; Est GFR (African American) 52.8; Est GFR (Non-African American) 45.6; Potassium 3.8 mmol/L (3.5-5.1)
[2020-09-24 08:37] LABS: Albumin Globulin Ratio 0.4 (0.9-2); Bilirubin,Total 1.2 mg/dl (0.2-1); Globulin 4.5 gm/dl (2.5-4.0); Total Protein 6.3 gm/dl (6.4-8.2); Troponin I 0.114 ng/ml (0-0.045)
[2020-09-24] MEDS: ENOXAPARIN 80 MG/0.8 ML SYR SQ SCH ×2 (08:42→20:00)
[2020-09-24] MEDS: FAMOTIDINE 20 MG in SYRINGE 3 ML IV SCH (08:47)
[2020-09-24] MEDS ORDERED: CHOLECALCIFEROL 1,000 UNITS 25 MCG TAB PO SCH (09:00)
[2020-09-24] MEDS ORDERED: ASCORBIC ACID 500 MG TAB PO SCH (09:00)
[2020-09-24] MEDS ORDERED: FERROUS SULFATE 325 MG TAB PO SCH (09:00)
[2020-09-24] MEDS ORDERED: MULTIVITAMIN TAB PO SCH (09:00)
[2020-09-24] MEDS ORDERED: METOPROLOL TARTRATE 1 MG/ML VIAL IV SCH (09:30)
--- NOTE | 2020-09-24 09:47 | Gastrointestinal Consultation ---
Date of Consultation September 24, 2020 Assessment & Plan (1) Esophageal mass: (2) Dysphagia: Patient is an 85 yo female with a large hiatal hernia, history of CVA, moderate esophageal dysmotility, & a non-obstructing esophageal mass suspicious for malignancy (negative esophageal biopsy, +liver bx for metastatic adenocarcinoma). She is reporting liquid dysphagia, nausea & vomiting. Given the several different esophageal issues noted throughout her work-up, it is unclear if the patient's dysphagia is structural or related to motility issues. Will discuss further with GI team to determine if esophageal stenting would be appropriate or offer any benefit in this patient. In the interim, continue with supportive care. I agree with the decision of working-up leukocytosis for any underlying infection. Also agree with hospitalist decision for a palliative care consult to address the patient's goals of care. Thank you for allowing us to participate in the care of this patient. If you should have any further questions or concerns, do not hesitate to contact us at extension [phone] or [phone]. Supervising Physician Co-Signing Physician Notes Agree with Kami Mahajan PAC as above Abd: Soft, NT, ND, +BS I had the pleasure of seeing Rosie De Guzman and her daughter who was at her bedside. They informed me that she presented to the ER secondary to inability to have adequate oral intake. Review of her medical record reveals a barium swallow which showed esophageal dysmotility, a moderate to large sliding type hiatal hernia, and barium tablet was held up. EGD done on 09/11/20 showed distal esophageal mass, and a hiatal hernia. (Biopsies were not consistent with adenocarcinoma) CT scan of Abd/pelvis was performed showing innumerable liver mets with biopsies consistent with adenocarcinoma. Based on all the information above including examination of Rosie, review of palliative care and Oncology consultations, and discussion with Dr. Villalobos of the Hospitalist service, I would not recommend esophageal stent placement, as it will not be the cure to her malnutrition. As per Dr. Villalobos, she is not willing to have PEG tube placement. Therefore, I would recommend palliative care going forward due to grim prognosis. History of Present Illness Reason for Consultation: Dysphagia Attending Physician: Juhi Villalobos MD History of Present Illness Patient is an 85 yo female with PMH of CVA, POLLY, HTN, anxiety, HLD, & Afib w/ RVR who presents as a readmission for dysphagia. The patient was recently hospitalized and underwent a barium swallow for dysphagia. This indicatd a moderate to large hiatal hernia with an intrathoracic stomach. There was moderate esophageal dysmotility. The barium tablet was held up in the GEJ and an EGD was performed. EGD indicated a large hiatal hernia and a non-obstructing mass at the GEJ. Biopsies of this were benign, however malignancy was suspected. The patient underwent a liver biopsy of other suspicious lesions. This indicated a metastatic adenocarcinoma. The patient notes to me that she feels like she is nauseous often and feels the need to vomit frequently. Interestingly, she reports to me that she does not struggle to swallow solid food, but rather experiences liquid dysphagia. GI has been consulted for consideration of esophageal stent. The patient has a WBC count of 22,000. Upon review of WBC since the beginning of September, it appears that it has climbed progressively higher. She did have a positive UA in the ED. She appears to be on IV Ceftriaxone at present. Allergies Allergy/AdvReac Type Severity Reaction Status Date / Time No Known Allergies Allergy Verified 09/23/20 14:26 Home Medications Medication Instructions Recorded Confirmed Type Vitron-C 1 tab PO QAM 09/06/20 09/23/20 History atorvastatin 40 mg PO QPM 09/06/20 09/23/20 History chlorthalidone 12.5 mg PO QAM 09/06/20 09/23/20 History cholecalciferol (vitamin D3) 50 mcg PO QAM 09/06/20 09/23/20 History [Vitamin D3] lisinopril 40 mg PO QPM 09/06/20 09/23/20 History metoprolol succinate 150 mg PO QPM 09/06/20 09/23/20 History multivitamin 1 tab PO QAM 09/06/20 09/23/20 History enoxaparin [Lovenox] 70 mg SUBCUT Q12H 30 Days #42 ml 09/13/20 09/23/20 Rx famotidine 5 ml PO HS 09/23/20 09/23/20 History Patient History Medical History (Updated 09/24/20 @ 11:01 by KAYLEN Katz) Anticoagulated by anticoagulation treatment Anxiety Chronic gastritis Colloid thyroid nodule Diverticulosis Dysphagia Elevated troponin History of DVT (deep vein thrombosis) History of pulmonary embolism Hyperlipidemia Hypertension Iron deficiency anemia Mitral valve prolapse Nausea & vomiting Palliative care encounter Unintentional weight loss Surgical History H/O breast biopsy History of esophagogastroduodenoscopy (EGD) Family History Sister Dementia Diabetes Heart disease Macular degeneration Osteoporosis Son Asthma Mother Macular degeneration Social History Smoking Status: Never smoker Hx Alcohol Use: Yes Alcohol type: wine Alcohol type Comment: socially w/ family Hx Substance Use: No Preferred Language: Uruguayan Communication Ability: Impaired Worship Pastor Required: No Beliefs That Will Affect Care: None marital status: Current Living Situation: Spouse Other Information That Helps Us Care for You: No Feels Safe at Home: Yes Safety Concerns: Feels Safe At This Time Assistive Devices: None Review of Systems Constitutional: no fever and no chills Respiratory: no cough and no dyspnea Cardiovascular: no chest pain Gastrointestinal: + nausea, + vomiting and + dysphagia Musculoskeletal: + muscle weakness Integumentary: no problem reported Neurologic: + generalized weakness Psychiatric: no problem reported Physical Exam Constitutional: well developed Neck: normal visual inspection Respiratory: normal respiratory effort Cardiovascular: Extremities: no edema Gastrointestinal (Abdomen): Inspection/Auscultation: abdomen normal to inspection Musculoskeletal: Head/Neck/Chest: normocephalic Skin: no rashes Psychiatric: A+Ox3, euthymic affect Results & Data ([facility]) Vital Signs (Past 12 Hours) Vital Signs Temp Pulse Pulse Resp BP Pulse Ox 09/24/20 07:00 36.8 C 123 H 19 134/84 96 09/24/20 03:26 36.7 C 125 H 20 125/80 98 09/23/20 23:43 116 H 09/23/20 22:41 36.6 C 111 H 20 122/76 97 PG Care Time/CCT Total # of Minutes Spent Total Time Spent with Patient: Total time spent is greater than 50% in coordination of care (as documented) at patient's floor/unit and/or counseling patient: Coding Level of Care Code 09594 Initial Inpt Care Lvl 3 Diagnoses Esophageal mass K22.8 Dysphagia R13.10 Dysphagia type: esophageal phase (1) Dysphagia Dysphagia type: esophageal phase Qualified Code(s): R13.10 - Dysphagia, unspecified
--- NOTE | 2020-09-24 11:02 | Palliative Care Consultation ---
Date of Consultation September 24, 2020 Assessment & Plan (1) Palliative care encounter: This individual is an 85-year-old female who presents to the ER with dysphagia related to a new diagnosis of metastatic esophageal adenocarcinoma. She was recently admitted to the hospital from September 06- for weakness and was found to have had several strokes. Incidentally, a fungating mass was found in her esophagus. She is currently being treated for a UTI, delirium, dysphagia, and weakness. She also was having intractable nausea and vomiting. Palliative care was consulted to discuss goals of care. I met with Rosie in room 219. She was resting, but woke easily to my voice. She was able to answer simple questions and follow simple commands, but more that we talked, she was more confused and had mixed aphagia. When I asked her what she would do when she approached a red sign when driving and she was able to tell me she would stop. I did call her son, Suleiman, and talked to him on two separate occasions. We reviewed two of Dr. Go's notes, most recent from today indicating fragility, salvage therapy, and conservative approach with life expectancy. Additionally, GI was consulted to discuss the possibility of having a esophageal stent placed; however, she does have a hiatal hernia that does complicate that approach. Suleiman mentioned that him and his were able to see her today and feel she has declined markedly and they think they would like to have her return home with hospice services. Rosie lives with her who is independent and well, although he is 90 years old. Suleiman and his plan to stay with them for the immediate future as well. Suleiman said that they were going to discuss over dinner this evening internally as a family and plan to call the showcase trimmer tomorrow likely with a hospice agency choice if that is their final decision. They also discussed having supplemental caregivers as well. They have a goal for her to return home, likely by Thursday. We confirmed her code status of DNR/DNI. Palliative care will follow tomorrow to continue to assist with goals of care. (2) Esophageal mass: (3) Urinary tract infection: Currently on IV abx. Delirium seems to have improved to baseline, still with confusion. Likely mixed aphagia from recent CVA. Hematuria presence: without hematuria Urinary tract infection type: site unspecified Qualified Code(s): N39.0 - Urinary tract infection, site not specified (4) Weakness: (5) Acute dehydration: Currently receiving IV fluids. In discussion with her son, Suleiman, understanding that fluids would be discontinued and focus more on oral hydration and comfort. (6) Nausea & vomiting: She does have Zofran 4 mg IV Q 6 PRN ordered but has not utilized any doses. No nausea or emesis reported today. History of Present Illness Reason for Consultation: Goals of care Requesting Physician: Dr. Villalobos Attending Physician: Juhi Villalobos MD History of Present Illness This individual is an 85-year-old female who presents to the ER with dysphagia related to a new diagnosis of metastatic esophageal adenocarcinoma. She was recently admitted to the hospital from September 06- for weakness and was found to have had several strokes. Incidentally, a fungating mass was found in her esophagus. She is currently being treated for a UTI, delirium, dysphagia, weakness and nausea and vomiting. Palliative care was consulted to discuss goals of care. Please see A/P for further information. Thank you for involving Palliative Care with this individual. Allergies Allergy/AdvReac Type Severity Reaction Status Date / Time No Known Allergies Allergy Verified 09/23/20 14:26 Home Medications Medication Instructions Recorded Confirmed Type Vitron-C 1 tab PO QAM 09/06/20 09/23/20 History atorvastatin 40 mg PO QPM 09/06/20 09/23/20 History chlorthalidone 12.5 mg PO QAM 09/06/20 09/23/20 History cholecalciferol (vitamin D3) 50 mcg PO QAM 09/06/20 09/23/20 History [Vitamin D3] lisinopril 40 mg PO QPM 09/06/20 09/23/20 History metoprolol succinate 150 mg PO QPM 09/06/20 09/23/20 History multivitamin 1 tab PO QAM 09/06/20 09/23/20 History enoxaparin [Lovenox] 70 mg SUBCUT Q12H 30 Days #42 ml 09/13/20 09/23/20 Rx famotidine 5 ml PO HS 09/23/20 09/23/20 History Patient History Medical History (Updated 09/24/20 @ 11:01 by KAYLEN Katz) Anticoagulated by anticoagulation treatment Anxiety Chronic gastritis Colloid thyroid nodule Diverticulosis Dysphagia Elevated troponin History of DVT (deep vein thrombosis) History of pulmonary embolism Hyperlipidemia Hypertension Iron deficiency anemia Mitral valve prolapse Nausea & vomiting Palliative care encounter Unintentional weight loss Surgical History H/O breast biopsy History of esophagogastroduodenoscopy (EGD) Family History Sister Dementia Diabetes Heart disease Macular degeneration Osteoporosis Son Asthma Mother Macular degeneration Social History Smoking Status: Never smoker Hx Alcohol Use: Yes Alcohol type: wine Alcohol type Comment: socially w/ family Hx Substance Use: No Preferred Language: Japanese Communication Ability: Impaired 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 Beliefs That Will Affect Care: None marital status: Current Living Situation: Spouse Other Information That Helps Us Care for You: No Feels Safe at Home: Yes Safety Concerns: Feels Safe At This Time Assistive Devices: None Review of Systems Review of Systems: [place] Symptom Assessment Scale: Unreliable due to mixed aphagia Pain: 0/3 by OBS Shortness of breath: 0/3 by OBS Tiredness: 2/3 by OBS Palliative Performance Scale: 30% Physical Exam Constitutional: + well hydrated, cooperative and comfortable Respiratory: normal respiratory effort Auscultation: + diminished lung sounds Cardiovascular: Rate/Rhythm: + irregularly irregular Extremities: normal capillary refill; no edema Gastrointestinal (Abdomen): normal bowel sounds, soft, nontender, no hepatosplenomegaly Skin: + pallor Psychiatric: Orientation: alert, oriented to person and cooperative Insight: + limited insight Judgement: + limited judgement and + poor judgement Lymphatic: no cervical or axillary lymphadenopathy Results & Data ([facility]) Vital Signs (Past 12 Hours) Vital Signs Temp Pulse Pulse Resp BP BP Pulse Ox 09/24/20 10:32 136 H 127/80 09/24/20 09:44 112 H 09/24/20 07:00 36.8 C 123 H 19 134/84 96 09/24/20 03:26 36.7 C 125 H 20 125/80 98 09/23/20 23:43 116 H PG Care Time/CCT Total # of Minutes Spent Total Time Spent with Patient: Total time spent is greater than 50% in coordination of care (as documented) at patient's floor/unit and/or counseling patient: 100 minutes with > 50% of that time spent assessing the patient, discussing goals of care with patient and family, and collaborating with IDT Coding Level of Care Code 14896 Inpt Consult Level 4 Diagnoses Palliative care encounter Z51.5 Esophageal mass K22.8 Urinary tract infection N39.0 Hematuria presence: without hematuria Urinary tract infection type: site unspecified Weakness R53.1 Acute dehydration E86.0 Nausea & vomiting R11.2 Time Spent (min) 100
--- NOTE | 2020-09-24 12:18 | Consultation Report ---
DATE OF CONSULTATION: 09/24/2020 ONCOLOGIC CONSULTATION REASON FOR CONSULTATION: Metastatic esophageal cancer. HISTORY OF PRESENT ILLNESS: Rosie is a pleasant, unfortunate 85-year-old female patient who was admitted through the [facility]'s Emergency Room yesterday with worsening fatigue, dysphagia and associated nausea and vomiting. The patient herself was not terribly informative at the bedside and actually quoted "I feel like I am dying." As you recall, I first met her back on 09/12 when she was initially admitted. She was admitted for focal weakness regarding her left hand for the prior month. She also reported generalized weakness and fatigue along with anorexia and about a 10-pound weight loss. She became more symptomatic interestingly after receiving her second COVID-19 vaccination, noting difficulty with ambulation, describing herself as being off balance. She was worked up from a laboratory and radiographic perspective in the Emergency Room prior to that admission, which included MRI of the brain revealing scattered acute infarcts in bilateral cerebral hemispheric and watershed distributions, likely from a cardioembolic source. Because of the reported dysphagia, barium swallow confirmed a possible GE junction mass, which led to a gastroenterology consultation and EGD. Biopsy was obtained and surprisingly was negative for cancer. Instead of having her undergo the EGD once again, I had recommended a CT guided biopsy of one of the multiple liver lesions that were detected by CT. 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 Now it would appear her urinalysis was positive for infection and she is on antibiotics. I trust blood cultures were also drawn. I have been asked to see her in lieu of her outpatient followup visit that was scheduled with me today to discuss chemotherapy. PAST MEDICAL HISTORY: Significant for iron-deficiency anemia, mitral valve prolapse, anorexia/weight loss, history of pulmonary embolism, hyperlipidemia, hypertension, diverticulosis, chronic gastritis, anxiety and chronic anticoagulation. PAST SURGICAL HISTORY: EGD and also breast biopsy. MEDICATIONS: Prior to admission include famotidine 5 mL p.o. at bedtime, Lovenox 70 mg subQ q.12 hours, multivitamin 1 tablet p.o. daily, metoprolol 150 mg p.o. daily, lisinopril 40 mg p.o. daily, cholecalciferol 50 mcg p.o. daily, chlorthalidone 12.5 mg p.o. daily, atorvastatin 40 mg p.o. daily, Vitron-C 1 tablet p.o. daily. ALLERGIES: No known drug allergies. FAMILY HISTORY: Sister suffers from dementia, diabetes, and heart disease. Son with asthma and her mother suffered from macular degeneration. SOCIAL HISTORY: The patient lives with her spouse. She drinks wine on a social occasion. She is a nonsmoker and non-illicit drug user. REVIEW OF SYSTEMS: CONSTITUTIONAL: As per HPI, most notably for anorexia, weight loss and dysphagia. Positive for asthenia. SKIN: No rashes or lesions. No history of dermatoses. HEENT: She denies headaches. Positive for lightheadedness. Negative for vertigo. No sinus symptoms or sore throat. Positive for dysphagia. HEART: Negative for palpitations or angina. PULMONARY: She is not acutely short of breath, dyspneic or orthopneic. No cough or hemoptysis. GASTROINTESTINAL: Negative for abdominal pain. Positive for nausea and vomiting. No diarrhea, constipation, or hematochezia. GENITOURINARY: Markedly abnormal UA indicating a urinary tract infection. MUSCULOSKELETAL: Positive for generalized weakness. No arthralgias or myalgias. ENDOCRINE: Negative for diabetes or thyroid disease. NEUROLOGIC: Negative for seizures. Positive for a suspected CVA most recently by MRI. HEMATOLOGIC: Positive for anemia, positive for leukocytosis, positive for mild thrombocytopenia. PHYSICAL EXAMINATION: GENERAL: A very pleasant 85-year-old female, slightly disoriented today, awake and alert otherwise. VITAL SIGNS: Temperature 35.8, pulse 108, respiratory rate 19, blood pressure 117/75. SKIN: Warm, dry, noncyanotic without petechia, rash or ecchymosis. HEENT: Head is atraumatic, normocephalic. Eyes: PERRLA, EOMI. Sclerae nonicteric. No conjunctival injection. Nares patent without rhinorrhea or discharge. Throat is clear. Tongue is midline. Mucous membranes are moist. NECK: Supple without JVD or thyromegaly. CARDIAC: Regular rate and rhythm. No clicks, rubs, murmurs or gallops. LUNGS: Clear to auscultation bilaterally. ABDOMEN: Soft, nontender, nondistended. EXTREMITIES: No clubbing, cyanosis or edema. NEUROLOGICAL: She is awake and alert, not terribly oriented. No focality otherwise. LABORATORY DATA:, WBC count 22,290, hemoglobin 9.4, platelet count 106. Sodium 138, potassium 3.8, chloride 108, carbon dioxide 24, BUN 24, creatinine 1.11, albumin 1.8, AST 88, ALT 38, alkaline phosphatase 204. RADIOGRAPHIC DATA: CT scan of the abdomen and pelvis, no evidence of bowel obstruction. Small bilateral pleural effusions, innumerable space-occupying hepatic masses suspicious for metastatic disease, low volume ascites. IMPRESSION: 1. Urinary tract infection. 2. Protein malnutrition/hypoalbuminemia. 3. Metastatic esophageal cancer. 4. History of cerebrovascular accident. 5. Leukocytosis. 6. Anemia. 7. Thrombocytopenia. PLAN: I have been asked to visit Rosie. She was scheduled to see me in the office today to discuss salvage treatment options. Biopsy of the liver confirmed the diagnosis of metastatic esophageal cancer. Rosie's performance status is not the best. Her albumin is dreadfully low and needs to be addressed during this admission. Perhaps daily albumin and work on her appetite overall. Regimens for esophageal cancer are notoriously difficult and I am not terribly enthusiastic to offer her salvage treatment. Unfortunately, I believe Rosie is ultimately correct on her impending demise, she is dying and based on what I am seeing of her, maybe a couple weeks to a month of survival. I did not engage in discussion about chemotherapy because again she was not mentally crisp. Perhaps I could engage Rosie in the next day or two or perhaps talk to her . In the meantime, we could consider a MediPort placement if for nothing else in preparation to receive hospice care in case she needs IV hydration/pain meds or if she decides to receive salvage chemotherapy. I agree with medical management otherwise and we will continue to follow her periodically during her hospital stay. KURT
--- NOTE | 2020-09-24 13:31 | Hospitalist Progress Note ---
Date of Service September 24, 2020 Assessment & Plan (1) Nausea & vomiting: Presented with inability to keep down liquids. Has known esophageal mass with stricture, sliding hiatal hernia, and esophageal dysmotility all contributing Nutritional status is down, low albumin, with weight loss Appreciate GI consultation and Palliative Care consultations Pt and family do not desire feeding tube Esophageal stent is not a good option as per GI Plan for home with hospice and comfort feeds as desired-family in agreement with plan Continue IVFs for now but family deciding by the AM about definite plans to pursue hospice and then would stop IVFs Would also stop all po meds except those for comfort moving forward (2) Primary malignant neoplasm of esophagus with metastasis to other site: With mets to liver-innumerable, proved adenocarcinoma on biopsy Biopsy of esophageal mass negative but most likely not accurate Appreciate Oncology consultation Nutritional status poor to undergo salvage chemotherapy, prognosis 2-4 weeks as per Oncology Appreciate Palliative care consult as well-plans for home with hospice (3) Acute dehydration: IV fluids given improved but cannot take po so will return eventually (4) Leukocytosis: Up to 22k today from 16 on admission ?secondary to UTI vs. esophageal mass, stress response Trend with AM labs treating UTI with abx (5) Urinary tract infection: UA+, with leukocytosis Ur cx with GNR continue ceftriaxone for now but will stop when goes home with hospice (6) Iron deficiency anemia: stable at 9 most likely from chronic GI bleeding from esophageal mass Patient denies any melena or bright red blood in stool dc ferrous sulphate po given inability to swallow pills (7) Atrial fibrillation with rapid ventricular response: Continue metoprolol IV only for now for rapid rates in 120s not able to marizol po Toprol Anticoagulation with Lovenox as above but can stop for comfort if desired while on hospice-discussed with family risk of stroke if stopped, but as pt declines, would stop (8) Hypertension: Hold chlorthalidone in setting of dehydration Hold lisinopril in setting of relative hypotension hold metoprolol succinate given inability to swallow po pills (9) Hypoalbuminemia due to protein-calorie malnutrition: albumin low, weight loss as above cannot tolerate po foods/drinks does not desire feeding tube (10) Elevated troponin: mildly elevated at 0.115 and stable likely secondary to rapid Afib, strain of metastatic disease, infection ECHO without WMAs no need to pursue further evaluation denies CP, ECG without ischemic signs (11) Thrombocytopenia: plts mildly low at 106 likely due to liver disease follow in AM (12) Anxiety: can use po lorazepam on hospice (13) Stroke: history of recent cardioembolic CVAs, Afib -continue Lovenox for now (14) Hyperlipidemia: dc statin due to inability to take po (15) DVT prophylaxis: Patient will continue on her usual therapeutic Lovenox injections Dispo-continued stay but most likely to home with hospice in 1-2 days Discussed her care with son Suleiman on phone at length Admission and Anticipated Discharge Date Admission Date: September 23, 2020 Results & Data Results & Data ([facility]) Vital Signs (Past 12 Hours) Vital Signs Temp Pulse Pulse Resp BP BP Pulse Ox 09/24/20 11:04 35.8 C L 108 H 19 117/75 97 09/24/20 10:32 136 H 127/80 09/24/20 09:44 112 H 09/24/20 07:00 36.8 C 123 H 19 134/84 96 09/24/20 03:26 36.7 C 125 H 20 125/80 98 PG Care Time/CCT Total # of Minutes Spent Total Time Spent with Patient: Total time spent is greater than 50% in coordination of care (as documented) at patient's floor/unit and/or counseling patient: Coding Level of Care Code 69031 Subseq Hosp Care Lvl 3 Diagnoses Nausea & vomiting R11.2 Primary malignant neoplasm of esophagus with metastasis to other site C15.9 Acute dehydration E86.0 Leukocytosis D72.829 Urinary tract infection N39.0 Hematuria presence: without hematuria Urinary tract infection type: site unspecified Iron deficiency anemia D50.9 Atrial fibrillation with rapid ventricular response I48.91 Hypertension I10 Hypoalbuminemia due to protein-calorie malnutrition E88.09; E46 Elevated troponin R77.8 Thrombocytopenia D69.6 Anxiety F41.9 Stroke I63.9 Hyperlipidemia E78.5 DVT prophylaxis Z29.9 (1) Urinary tract infection Hematuria presence: without hematuria Urinary tract infection type: site unspecified Qualified Code(s): N39.0 - Urinary tract infection, site not specified
[2020-09-24] MEDS: METOPROLOL TARTRATE 1 MG/ML VIAL IV SCH ×3 (13:52→20:00)
[2020-09-24] MEDS: D5W AND 1/2NSS + 20MEQ KCL 20 MEQ/1,000 ML BAG IV SCH (14:43)
--- NOTE | 2020-09-24 15:46 | XCELERA ---
[id number]
--- NOTE | 2020-09-24 16:02 | Electrocardiogram Report ---
Test Reason : Blood Pressure : / mmHG Vent. Rate : 113 BPM Atrial Rate : 192 BPM P-R Int : 000 ms QRS Dur : 082 ms QT Int : 312 ms P-R-T Axes : 000 018 004 degrees QTc Int : 427 ms Atrial fibrillation with rapid ventricular response Abnormal ECG When compared with ECG of 06-SEP-2020 17:59, Nonspecific T wave abnormality has replaced inverted T waves in Anterior leads Confirmed by Alan Godinez ([id number]) on 09/24/2020 4:01:38 PM Referred By: REFERRED SELF Confirmed By:Star Godinez
[2020-09-24] MEDS ORDERED: cefTRIAXone SODIUM 1,000 MG in DEXTROSE 5% 50 ML IV SCH (17:00)
[2020-09-24] MEDS ORDERED: METOPROLOL SUCC 50MG EXT REL TAB PO SCH (21:00)
[2020-09-25] MEDS: METOPROLOL TARTRATE 1 MG/ML VIAL IV SCH ×4 (00:02→12:45)
[2020-09-25] MEDS: D5W AND 1/2NSS + 20MEQ KCL 20 MEQ/1,000 ML BAG IV SCH (04:54)
[2020-09-25 06:15] LABS: Mean Corpuscular Hemoglobin 29.6 pg (25-34); Mean Corpuscular Hgb Conc 32.1 g/dL (32-36); Mean Corpuscular Volume 92.1 fL (80-100); RDW Coefficient of Variation 17.5 % (11.5-14.5); RDW Standard Deviation 57.9 fL (36.4-46.3); Red Blood Count 3.04 M/uL (4.2-5.4); White Blood Count 21.58 K/uL (4.8-10.8)
[2020-09-25 06:34] LABS: Mean Platelet Volume 11.6 fL (7.4-10.4); Platelet Count 67 K/uL (130-400)
[2020-09-25 06:39] LABS: Acanthocytes 1+; Basophils # (auto) 0.01 K/uL (0-0.2); Dohle Bodies Occasional; Eosinophils # (auto) 0.22 K/uL (0-0.5); Immature Granulocytes # (auto) 0.09 K/uL (0.00-0.02); Immature Granulocytes % (auto) 0.4 %; Lymphocytes # (auto) 1.12 K/uL (1.2-3.4); Lymphocytes % (auto) 5.2 %; Monocytes # (auto) 1.23 K/uL (0.11-0.59); Monocytes % (auto) 5.7 %; Neutrophils # (auto) 18.91 K/uL (1.4-6.5); Neutrophils % (auto) 87.7 %; Platelet Estimate Decreased (Normal); Schistocytes 1+; Toxic Vacuolation Occasional
[2020-09-25 06:44] LABS: Albumin Level 1.8 gm/dl (3.4-5.0); BUN Creatinine Ratio 24.1 (10-20); Calcium 8.8 mg/dl (8.5-10.1); Creatinine Clr Calc Pharmacy 43.9 ml/min; Est GFR (African American) 67.1; Est GFR (Non-African American) 57.9; Potassium 4.1 mmol/L (3.5-5.1)
[2020-09-25 06:46] LABS: Albumin Globulin Ratio 0.4 (0.9-2); Bilirubin,Total 1.2 mg/dl (0.2-1); Globulin 4.4 gm/dl (2.5-4.0); Total Protein 6.2 gm/dl (6.4-8.2)
[2020-09-25] MEDS: ENOXAPARIN 80 MG/0.8 ML SYR SQ SCH (09:08)
[2020-09-25] MEDS: FAMOTIDINE 20 MG in SYRINGE 3 ML IV SCH (09:13)
--- NOTE | 2020-09-25 10:55 | Palliative Care Progress Note ---
Date of Service September 25, 2020 Assessment & Plan (1) Nausea & vomiting: Controlled. She has not had any prn zofran. (2) Palliative care encounter: I spoke with Rosie's son, Suleiman, on the phone. They have talked as a family. They understand that her time is short and very much want to get her home for her dying time. They would like to have hospice care at home. Suleiman and his will be helping her with care and are interested in hiring caregivers for 24 hour care at home. We talked about what to expect and answered Suleiman's questions about hospice and how best to support Rosie in her final days. I talked with Rosie about plan to get her home with caregivers who can make sure that she is comfortable. She is agreeable to this. Discussed with Dr. Villalobos and case management. (3) Primary malignant neoplasm of esophagus with metastasis to other site: (4) Stroke: (5) Thrombocytopenia: Admission and Anticipated Discharge Date Admission Date: September 23, 2020 Subjective Sleeping but easily arousable. "I'm very tired". She denies pain or discomfort. Review of Systems Review of Systems: [place] Symptom Assessment Scale Pain0/3 Dyspnea 0/3 Nausea 0/3 Anxiety0/3 Drowsiness 1/3 Palliative Performance Score 30# Physical Exam Constitutional: no acute distress ENMT: Mouth: oral mucous membranes not dry Respiratory: normal respiratory effort; no labored breathing Gastrointestinal (Abdomen): Percussion/Palpation: abdomen soft epigastric tenderness Neurologic: no focal motor deficits Results & Data ([facility]) Vital Signs (Past 12 Hours) Vital Signs Temp Pulse Pulse Resp BP BP Pulse Ox 09/25/20 08:00 98.6 F 130 H 110 H 18 141/62 H 09/25/20 04:54 118 H 131/86 09/25/20 03:40 97.9 F 121 H 20 125/77 96 09/25/20 00:05 118 H 09/25/20 00:02 118 H 131/86 PG Care Time/CCT Total # of Minutes Spent Total Time Spent with Patient: Total time spent is greater than 50% in coordination of care (as documented) at patient's floor/unit and/or counseling patient: total time spent 35 minutes with more than 50% of time spent on hospice, family education and support, coordination of care. Coding Level of Care Code 45098 Subseq Hosp Care Lvl 3 Diagnoses Nausea & vomiting R11.2 Palliative care encounter Z51.5 Primary malignant neoplasm of esophagus with metastasis to other site C15.9 Stroke I63.9 Thrombocytopenia D69.6
--- NOTE | 2020-09-25 13:35 | Discharge Summary ---
Date of Service September 25, 2020 Admission HPI Per Admitting Provider Rosie De Guzman is an 85-year-old female who presents to the ER with difficulty swallowing after 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 She was seen with her daughter who provides much of the history. After her discharge 10 days ago she reports slowly progressively worsening fatigue and dysphagia with nausea and vomiting. She feels food will get lodged in her esophagus even on a pure liquid diet and will vomit after around 20 minutes She has a complex recent history with hospitalization from September 06- due to left hand weakness with subsequent stroke workup showing several infarcts concerning for cardioembolic source despite Xarelto use. She was switched to Lovenox injections. In addition she was worked up for dysphagia and weight loss with fungating mass found in esophagus and subsequent workup concerning for metastatic disease. Esophageal biopsies were benign however subsequent liver biopsies confirmed adenocarcinoma and esophageal mass still suspected to be cancerous. She had a port placement and is due to follow up with her oncologist tomorrow regarding possible salvage chemotherapy. In the ER UA grossly positive for infection. Other than fatigue she denies any definitive urinary symptoms such as lower abdominal or flank pain, fever, chills, dysuria, change in urine smell/frequency/color. She was referred to medicine for admission and ongoing management of dehydration and weakness. Principal Diagnosis Metastatic esophageal cancer, dysphagia, rapid atrial fibrillation, UTI Discharge Exam Constitutional WD/WN, vitals as above Eyes + anicteric sclerae ENMT Ears: no EAC abnormality and no TM abnormality Neck trachea midline, no thyromegaly Respiratory normal respiratory effort, lungs clear to auscultation Cardiovascular Rate/Rhythm: + tachycardic and + irregularly irregular Heart Sounds: no murmur Extremities: no edema Chest (Breasts) Chest: + vascular access device or port Gastrointestinal (Abdomen) normal bowel sounds, soft, nontender, no hepatosplenomegaly Musculoskeletal Extremities: extremities normal to inspection; no cyanosis and no clubbing Skin no rashes, warm and dry Neurologic moves all extremities and awake; no focal motor deficits Psychiatric Orientation: alert, oriented to person and cooperative; + not oriented to place and + not oriented to time Eye Contact: + fair eye contact Affect: + flat affect Cognition: + recent memory not intact Genitourinary Bains catheter in place Lymphatic no lymphedema Discharge Data Allergies Allergy/AdvReac Type Severity Reaction Status Date / Time No Known Allergies Allergy Verified 09/23/20 14:26 Consultations 09/23/20 15:39 ED Decision to Admit Stat 09/23/20 18:19 Consult Gastroenterology Routine 09/23/20 19:58 Consult Oncology Routine 09/24/20 09:37 Consult Palliative Care Routine Ordered Studies 09/23/20 13:12 CT head/brain wo con Stat 09/23/20 13:13 CT abd pelvis wo con Stat CXR ECHO Hospital Course (1) Nausea & vomiting: Presented with inability to keep down liquids. Has known esophageal mass with stricture, sliding hiatal hernia, and esophageal dysmotility all contributing Nutritional status is down, low albumin, with weight loss Appreciate GI consultation and Palliative Care consultations Pt and family do not desire feeding tube Esophageal stent is not a good option as per GI Plan for home with hospice and comfort feeds as desired-family in agreement with plan Would also stop all po meds except those for comfort moving forward (2) Primary malignant neoplasm of esophagus with metastasis to other site: With mets to liver-innumerable, proved adenocarcinoma on biopsy Biopsy of esophageal mass negative but most likely not accurate Appreciate Oncology consultation Nutritional status poor to undergo salvage chemotherapy, prognosis 2-4 weeks as per Oncology Appreciate Palliative care consult as well-plans for home with hospice (3) Acute dehydration: IV fluids given improved but cannot take po so will return eventually no further IVFs to be given (4) Leukocytosis: Up to 22k amd not improving despite tx with abx for UTI most likely reactive to metastatic disease (5) Urinary tract infection: UA+, with leukocytosis Ur cx with pansensitive E. coli received ceftriaxone x 2 days and now home with hospice (6) Iron deficiency anemia: stable at 9 most likely from chronic GI bleeding from esophageal mass Patient denies any melena or bright red blood in stool dc ferrous sulphate po given inability to swallow pills (7) Atrial fibrillation with rapid ventricular response: received metoprolol IV scheduled for rapid rates in 120s-150s without much change cannot tolerate po Toprol XL Anticoagulation with Lovenox to be discontinued as is high risk for bleeding with worsening thrombocytopenia. Discussed with son/POA and would rather have risk of stroke than see her have hemorrhage in hospice (8) Hypertension: dc all home po meds on hospice (9) Hypoalbuminemia due to protein-calorie malnutrition: albumin low, weight loss as above cannot tolerate po foods/drinks does not desire feeding tube (10) Elevated troponin: mildly elevated at 0.115 and stable likely secondary to rapid Afib, strain of metastatic disease, infection ECHO without WMAs no need to pursue further evaluation denies CP, ECG without ischemic signs (11) Thrombocytopenia: plts dropped further low at 64k likely due to liver disease vs sepsis stop Lovenox, no further need to follow on hospice (12) Anxiety: can use po lorazepam on hospice (13) Stroke: history of recent cardioembolic CVAs, Afib -dc Lovenox (14) Hyperlipidemia: dc statin due to inability to take po (15) DVT prophylaxis: none Dispo-dc to home on hospice Discussed with abilio Bearden at bedside on day of discharge dc with Bains in place Sent Roxanol, lorazepam, Levsin prn for hospice comfort meds Total Time Total Time Spent Total Time Spent (In Minutes): 35 min Total Time Includes: Examination of the Patient, Discharge Planning and Medication Reconciliation Discharge Plan Discharge Items Patient Disposition: Hospice - Home Reason For Visit: UTI SEPSIS Discharge Diagnosis: Metastatic esophageal cancer, UTI, Dysphagia (difficulty swallowing) Condition on Discharge: Fair Activity: As commented below Bathing: No limitations Exercise/Sports: Rest today Non-emergency contact: Primary Care Provider Call non-emergency contact if: you have any medication questions, your symptoms worsen and your pain is not controlled Follow-up/Referrals: Ant Nieto MD [Primary Care Provider] - 09/28/20 12:50 pm Diet: Other - See Diet Comment Diet Texture: Pureed (blended smooth) Diet Comment: for comfort as tolerated Addtl Attending Provider Instructions: You were admitted with inability to swallow due to your esophageal dysmotility and esophageal cancer. You also had a urinary tract infection which was treated with antibiotics. Because of your poor nutritional status and inability to eat in the setting of metastatic cancer, you have chosen to go home with hospice to focus on comfort and quality of life. You can take Roxanol as needed for pain or breathlessness, lorazepam under the t ongue as needed for anxiety, and Levsin under the tongue as needed for excessive saliva or secretions. Your home hospice agency will take over your care from here and assist you with any issues you have. As we discussed, you can stop all of your usual home medications. At this point, your platelets are getting low and your risk of bleeding is quite high--> therefore, please also STOP the Lovenox injections. It was a pleasure taking care of you and I will be thinking of you and your family, Dr. Juhi Villalobos Pending Studies at Discharge: Yes Stand-Alone Forms: My [facility] Medications and DC Order Prescriptions: New morphine 20 mg/5 mL (4 mg/mL) solution 5 mg PO Q4H PRN (Reason: pain or breathlessness) Qty: 100 RF: 0 lorazepam 0.5 mg tablet 0.5 mg sublingual Q6H PRN (Reason: anxiety) Qty: 7 RF: 0 hyoscyamine sulfate [Levsin/SL] 0.125 mg tablet, sublingual 0.125 mg sublingual Q8H PRN (Reason: excesive secretions) Qty: 7 RF: 0 Discontinued atorvastatin 40 mg tablet 40 mg PO QPM RF: 0 metoprolol succinate 100 mg tablet extended release 24 hr 150 mg PO QPM RF: 0 chlorthalidone 25 mg tablet 12.5 mg PO QAM RF: 0 lisinopril 40 mg tablet 40 mg PO QPM RF: 0 multivitamin Tablet 1 tab PO QAM RF: 0 cholecalciferol (vitamin D3) [Vitamin D3] 50 mcg (2,000 unit) Tablet 50 mcg PO QAM RF: 0 Vitron-C 65 mg iron- 125 mg Tablet,Delayed Release (Dr/Ec) 1 tab PO QAM RF: 0 enoxaparin [Lovenox] 80 mg/0.8 mL syringe 70 mg subcut Q12H 30 Days Qty: 42 RF: 5 famotidine 40 mg/5 mL (8 mg/mL) suspension 5 ml PO HS RF: 0 Discharge Orders: Discharge Order (Routine); Ordered 09/25/20 Ordered By: Juhi Villalobos Admission Data Admit Date/Time: 09/23/20 16:25 Attending Provider: Juhi Villalobos Admit Provider: Ant Orozco Primary Care Provider: Ant Nieto Other Providers: Ant Orozco ; Marc Mcconnell ; Sean Go V. ; Malinda Song ; Racheal Burgos Other Interventions: Discharge Summary Assessment (RN) Last Done: 09/25/20 15:53 Coding Level of Care Code D/C Day Management >30 mins Diagnoses Nausea & vomiting R11.2 Primary malignant neoplasm of esophagus with metastasis to other site C15.9 Acute dehydration E86.0 Leukocytosis D72.829 Urinary tract infection N39.0 Hematuria presence: without hematuria Urinary tract infection type: site unspecified Iron deficiency anemia D50.9 Atrial fibrillation with rapid ventricular response I48.91 Hypertension I10 Hypoalbuminemia due to protein-calorie malnutrition E88.09; E46 Elevated troponin R77.8 Thrombocytopenia D69.6 Anxiety F41.9 Stroke I63.9 Hyperlipidemia E78.5 DVT prophylaxis Z29.9
--- NOTE | 2020-09-28 14:17 | Coding Query ---
MALNUTRITION To promote full compliance with coding requirements relating to patient care, physician participation is requested in all cases of metal finisher uncertainty. Please assist us with the question(s) below: Please place an X within the parenthesis (x). If other, please document: "Malnutrition" is documented in this record and on Discharge Summary. If possible, please check the box that provides a more specific diagnosis: ( ) Mild malnutrition ( ) Moderate malnutrition ( ) Severe malnutrition ( ) Protein malnutrition (kwashiorkor) ( x) Severe protein calorie malnutrition ( ) Protein calorie malnutrition, unspecified ( ) Other (please specify): Was this diagnosis present on admission? Please place an X within the parenthesis (x). (x ) Present on admission ( ) Not present on admission ( ) Unable to be clinically determined Thank you Myrtle Tinajero [facility]ENTERMarcie
--- NOTE | 2020-09-28 14:21 | Coding Query ---
SEPSIS Sepsis is documented on the Discharge Summary. Please specify below, in your clinical opinion. To promote full compliance with coding requirements relating to patient care, physician participation is requested in all cases of perennial house manager uncertainty. Please assist us with the question(s) below: In responding to this query, please exercise your independent professional judgement. The fact that a question is asked does not imply that any particular answer is desired or expected. We appreciate your clarification on this issue. Throughout the medical record, you have clearly documented a localized infection and your patient has clinical evidence of a generalized sepsis or severe sepsis. The term urosepsis is a nonspecific entity and is coded as an UTI. If the patient has sepsis, severe sepsis, from an urinary source or some other source, please clarify in your response below. The medical record reflects the following clinical findings: (With dates as appropriate) (Body temperature of >38.3 C(101 F) or <36 C(96.8F), pulse >90/minute, respirations >20/minute, WBC count >12,000 or <4,000, altered mental status, significant edema or positive fluid balance, hyperglycemia without diabetes, hypotension, metabolic acidosis (elev. lactate level, anion gap or reduced blood pH), shock, positive blood culture (enter organism) ____ ()Bacteremia (Nonspecific laboratory finding of bacteria in the blood) Specify Organism () Present on Admission () Not present on admission () Unable to clinically determine () Septicemia (Systemic disease associated with the presence of pathogenic microorganisms in the blood): Specify Organism () Present on Admission () Not present on admission () Unable to clinically determine () Sepsis Specify Organism Specify Associated Condition/Diagnosis () Present on Admission () Not present on admission () Unable to clinically determine () Severe Sepsis (Sepsis associated with acute organ dysfunction) Specify Organism Specify Associated Condition/Diagnosis () Present on Admission () Not present on admission () Unable to clinically determine () Septic Shock (Severe sepsis with acute circulatory failure, unexplained by other causes) () Present on Admission () Not present on admission () Unable to clinically determine () Other, patient has: (x) Sepsis is Ruled-Out MTDD
== END 2020-09-25 16:56 | disposition hospice, home (50) | DRG 640 ==
LOC: ED 12:57 → 2S 16:25 → SUATTDRO 16:25 → 2S 18:23 → 1E 09-25 06:48 → 2S 09-25 06:48